=== PATIENT | female | born 1990 | race Caucasian/White ===

== ENCOUNTER 2017-09-08 14:30 | Emergency (ER) | payer SELFPAY ==
[2017-09-08 14:31] VITALS: BP 141/97; PULSE 77; RESP 18; TEMP 36.4; O2SAT 100; BMI 32.9
--- NOTE | 2017-09-08 15:19 | CT_ITS ---
CT Abdomen And Pelvis W/ Contrast INDICATION: RUQ PAIN X 1 WEEK. PRIOR CHOLECYSTECTOMY COMPARISON: None TECHNIQUE: Axial CT imaging of the abdomen and pelvis with IV contrast. Coronal and sagittal reformatted images. Radiation dose of the midfacial technique applied. 100 mL of Isovue-300 were given intravenously. FINDINGS: Subsegmental atelectasis are seen in the lingula. Visualized lung bases are otherwise clear. The heart size is normal. The liver, spleen, adrenal glands, and pancreas are unremarkable. The gallbladder is surgically absent. The kidneys enhance contrast symmetrically bilaterally and are without evidence of hydronephrosis. The bowel loops are nondistended. The appendix is unremarkable. The urinary bladder is physiologically distended. There is no evidence of free air or free fluid. Osseous structures are unremarkable. CT/Abdomen/Pelvis WITH Contrast IMPRESSION: No CT evidence of acute intra-abdominal or pelvic pathology. Status post cholecystectomy. Normal appendix. at 1711 Reported and signed by: Crystal Calles MD Electronically Signed: Crystal Calles MD at 16:10 EST Tel , Service support ,
--- NOTE | 2017-09-08 15:23 | ED.DCSUM_ITS ---
- ER Visit Summary Date of Service: 09/08/17 Chief Complaint:Abdominal pain History of Present Illness: The patient is a 27 F presenting with right upper quadrant abdominal pain ?1 week. She has had nausea. She states initially she had vomiting but this has resolved. She has diarrhea with no blood in her stool. She denies fever. She denies urinary complaints. She states this is worse with eating and also occasionally just has sharp pains in this area. She has a history of previous cholecystectomy. Denies possibility of . Physical Examination: Vitals are stable. Patient is afebrile. Alert no acute distress. HEENT exam is unremarkable. Neck is supple. Lungs are clear and equal bilaterally. Heart is regular rate and rhythm. Abdomen is soft right upper and lower quadrant tenderness, no rebound or guarding Extremities are unremarkable. Skin is warm and dry. Remainder of exam is unremarkable. Emergency Department Course and Treatment: Patient is given IV fluids, morphine , Zofran. CBC is white count 11.1. Chemistries normal except for glucose 67. Liver lipase are normal. Urinalysis unremarkable. HCG negative. CT abdomen pelvis with IV and oral contrast was obtained shows normal appendix, no acute process. Patient is resting comfortably in the emergency department. She is given a GI cocktail. She is advised to follow-up with primary care physician. Advised return ED if worsening complaints Disposition: Discharge home Impression: Abdominal pain This note was generated with [employer] dictation software. It may contain incorrect words, spelling, and punctuation that were not noted in review of the chart prior to signing ED Disposition - Plan for ED Patient: Chief Complaint: Abd Pain Instructions: ED Abdominal Pain Unkn Cause Prescriptions: Ondansetron [Zofran Odt] 4 mg PO Q8H PRN PRN #10 tablet PRN Reason: Nausea Dicyclomine HCl [Bentyl] 20 mg PO TIDAC #20 capsule Referrals: Mark Ramos DO [Primary Care Provider] -
[2017-09-08] MEDS: 0.9% Normal Saline 1,000 ML 1000 ML IV (15:42)
[2017-09-08] MEDS: Ondansetron 4 MG/2 ML Vial IV (15:42)
[2017-09-08 16:06] LABS: Absolute Lymphocyte Count 3.29 X10^3/ul (0.83-4.51); Absolute Neutrophil Count 6.7 X10^3/uL (2.0-7.7); Basophil# 0.06 X10^3/uL; Basophil% 0.5 % (0-1); Eosinophils% 1.8 % (0-5); Hematocrit 42.1 % (37-47); Hemoglobin 14.3 g/dl (12.0-15.0); Lymphocyte # 3.29 X10^3/ul (4.0); Lymphocyte % 29.7 % (19-41); Mean Corpuscular Hgb 30.8 pg (27.0-32.0); Mean Corpuscular Volume 90.5 fL (81-99); Monocyte# 0.81 X10^3/uL; Monocyte% 7.3 % (0-10); Neutrophil # 6.69 X10^3/uL (2.7-7.7); Neutrophil % 60.5 % (47-70); Platelet Count 320 K/mm3 (150-450); RBC Distribution Width CV 13.3 % (11.6-14.6); Red Blood Count 4.65 M/mm3 (4.2-5.4); White Blood Count 11.1 K/mm3 (4.4-11.0)
[2017-09-08 16:07] LABS: POSITIVE COUNT NO; POSITIVE DIFFERENTIAL NO; POSITIVE MORPHOLOGY NO
[2017-09-08 16:25] LABS: AST(SGOT) 17 U/L (15-37); Alanine Aminotransfer ALT/SGPT 35 U/L (13-56); Albumin, Serum 3.8 g/dL (3.2-5.0); Alkaline Phosphatase 93 U/L (45-117); Anion Gap 8 (5-15); BUN 10 mg/dL (7-18); BUN/Creat Ratio 14.1 RATIO (10-20); Calcium,Total 8.7 mg/dL (8.5-10.1); Chloride 106 mmol/L (98-107); Creatinine, Serum 0.71 mg/dL (0.55-1.02); EST Glomerular Filtration Rate 104 mL/min (>60); Est Glom Filt Rate - Afr Amer 125 mL/min (>60); Estimated Creatinine Clearance 92.47 ml/min; Globulin 3.8 g/dL (2.2-4.2); Glucose 67 mg/dL (70-110); Lipase 161 U/L (73-393); Potassium 3.7 mmol/L (3.5-5.1); Protein, Total 7.6 g/dL (6.4-8.2); Sodium Level 141 mmol/L (136-145)
[2017-09-08 16:25] LABS: Bacteria 0 SEEN /hpf (None Seen); Mucous, Urine 0 SEEN /hpf (<or=2+); Red Blood Cells-Urine 0 SEEN /hpf (0-5); White Blood Cells 0 SEEN /hpf (0-5)
[2017-09-08 16:28] LABS: Pregnancy, Serum, hCG Quali. NEGATIVE Negative (0-9 Nonpreg)
[2017-09-08 16:29] LABS: Color, Urine Yellow (Yellow); Glucose, Dipstick Normal (Normal); Ketone-Dipstick Negative (Negative); Leukocyte Esterase-Dipstick 25 /ul (Negative); Nitrite-Dipstick Negative (Negative); Occult Blood-Urine Negative /ul (Negative); Protein-Dipstick Negative (Negative); Urine Bilirubin Dipstick Negative (Negative); Urine Clarity Clear (Clear); Urine Urobilinogen Normal (Normal)
[2017-09-08 16:35] LABS: Squamous Epithelial Cells - UA 0-5 SEEN /hpf (5-10)
[2017-09-08 17:42] VITALS: BP 128/74; PULSE 55; RESP 16; O2SAT 97
--- NOTE | 2017-09-08 18:12 | ED.DEP ---
ED Disposition - Plan for ED Patient: Chief Complaint: Abd Pain Instructions: ED Abdominal Pain Unkn Cause Prescriptions: Ondansetron [Zofran Odt] 4 mg PO Q8H PRN PRN #10 tablet PRN Reason: Nausea Dicyclomine HCl [Bentyl] 20 mg PO TIDAC #20 capsule Referrals: Mark Ramos DO [Primary Care Provider] -
[2017-09-08 18:41] VITALS: PULSE 48; RESP 16; O2SAT 99
== END 2017-09-08 18:41 | disposition home or self-care (01) ==
LOC: ED 16:05
PROVIDERS: Emergency Provider Emergency Medicine; Family Provider Student in an Organized Health Care Education/Training Program; PCP Student in an Organized Health Care Education/Training Program
DX: R10.11 Right upper quadrant pain (principal); R10.31 Right lower quadrant pain; Z72.0 Tobacco use
CPT/HCPCS: 74177; 80053; 81001; 83690; 84703; 85025; 96361; 96374; 96375; 99284; J7050; Q9967; A4216; J2405

== ENCOUNTER 2017-11-14 09:53 | Emergency (ER) | payer SELFPAY ==
[2017-11-14 09:54] VITALS: BP 112/79; PULSE 103; RESP 16; TEMP 36.4; O2SAT 100; BMI 35.4
--- NOTE | 2017-11-14 10:26 | RAD_ITS ---
STUDY: X-RAY CHEST REASON FOR EXAM: Female, 27 years old. Shortness of breath. Back pain following a recent fall. TECHNIQUE: PA and lateral views of the chest. COMPARISON: Comparison is made with prior study dated October 19, 2012. FINDINGS: Increased markings at the lung bases suggestive of bibasilar atelectasis. There is no demonstrated pleural abnormality. Normal size heart. Normal mediastinum and ruchi. Normal visualized pulmonary arteries. Normal visualized aortic arch and descending thoracic aorta. Normal visualized thoracic spine. Normal visualized ribs, clavicles, and shoulders. There is no demonstrated abnormality of the visualized soft tissue structures of the upper abdomen. RAD/Chest PA and Lateral IMPRESSION: Findings in keeping with bibasilar atelectasis. Electronically Signed: Félix Evans MD at 11:36 EDT Tel [phone], Service support ,
--- NOTE | 2017-11-14 10:53 | ED.VISSUMM ---
- ER Visit Summary Date of Service: 11/14/17 Chief Complaint: Back pain and sore throat History of Present Illness: The patient is a 27 F who states that 2 weeks ago she slipped on some creamer at work and fell flat on her back. She states that her mom is had surgery and she is having to help move her quite a bit. She states she has not had a time for her back to heal and notes that is still painful. She states it is diffusely painful but worse in between the shoulder blades. She also states that she is having an acute allergic reaction because her sore throat is sore. She states it began last night but when asking when her cough began she states that that began 2 days ago in conjunction with her sore throat. Upon deeper questioning the sore throat is been present for 2 days associated with cough and slight rhinorrhea. There has been no reported fevers. Denies any neurologic symptoms. Home treatment has included nothing. Physical Examination: Afebrile vital signs are stable Gen: Well-nourished well-developed obese Head: Normocephalic atraumatic Eyes: Perrl EOMI ENT: TMs clear bilateral turbinate edema with clear rhinorrhea moist mucous membranes pharyngeal erythema with no obvious peritonsillar or retropharyngeal abscess Neck: Supple no lymphadenopathy no JVD reports pain upon palpation to touching the superficial skin of the neck. CVS: Regular rate rhythm no murmurs normal S1-S2 Respiratory: No distress clear to auscultation bilaterally chest nontender Abdomen: Soft nontender nondistended normal bowel sounds no masses Back: Patient reports diffuse tenderness to palpation of the back out of proportion to the examination. I simply touched her gown in the patient winced and said I hurt her. Extremity: Nontender no edema Skin: Normal color no rash Neuro: alert orientated ?3 CN II-XII intact normal strength sensation reflexes gait cerebellar Psych: Normal affect normal mood Test Results: Chest x-ray reveals no pulmonary pathology but also no obvious thoracic spine injury. Emergency Department Course and Treatment: Patient will be discharged home with ibuprofen. She is to follow-up with her doctor. Impression: 1. Back muscle strain from fall 2. Upper respiratory infection/pharyngitis This note was generated with [employer] dictation software. It may contain incorrect words, spelling, and punctuation that were not noted in review of the chart prior to signing ED Disposition - Plan for ED Patient: Disposition: Home or Assisted Living Chief Complaint: Back Instructions: ED Pharyngitis Viral, ED Sprain Thoracic Spine Prescriptions: Ibuprofen [Motrin] 800 mg PO TID PRN PRN #20 tab PRN Reason: Pain Referrals: Mark Ramos DO [Primary Care Provider] - 10-14 Days if not better
[2017-11-14 11:08] VITALS: BP 133/82; PULSE 73; RESP 16; O2SAT 99
== END 2017-11-14 11:13 | disposition home or self-care (01) ==
LOC: ED 11:12
PROVIDERS: Emergency Provider Emergency Medicine; Family Provider Student in an Organized Health Care Education/Training Program; PCP Student in an Organized Health Care Education/Training Program
DX: S29.012A Strain of muscle and tendon of back wall of thorax, initial encounter (principal); J02.9 Acute pharyngitis, unspecified; J06.9 Acute upper respiratory infection, unspecified; Z72.0 Tobacco use; X50.0XXA Overexertion from strenuous movement or load, initial encounter; Y93.F2 Activity, caregiving, lifting; Y92.009 Unspecified place in unspecified non-institutional (private) residence as the place of occurrence of the external cause; Y99.8 Other external cause status
CPT/HCPCS: 71046; 99282

== ENCOUNTER 2018-04-11 15:00 | Emergency (ER) | payer SELFPAY ==
[2018-04-11 15:01] VITALS: BP 123/87; PULSE 54; RESP 19; TEMP 36.9; O2SAT 99; BMI 32.9
[2018-04-11] MEDS: Ketorolac 60 MG/2 ML Vial IM (15:34)
[2018-04-11] MEDS: Orphenadrine 60 MG/2 ML Ampul IM (15:34)
--- NOTE | 2018-04-11 16:17 | ED.DEP ---
ED Disposition - Plan for ED Patient: Chief Complaint: Back Instructions: ED Neck Back Pain General Prescriptions: Naproxen [Naprosyn] 500 mg PO BID PRN #20 tablet Cyclobenzaprine [Flexeril] 10 mg PO TID PRN #20 tablet PRN Reason: Muscle Spasm Referrals: Mark Ramos DO [Primary Care Provider] -
--- NOTE | 2018-04-11 16:20 | ED.DCSUM_ITS ---
- ER Visit Summary Date of Service: 04/11/18 Chief Complaint: Back pain History of Present Illness: The patient is a 27 F presenting with back pain. States this has been ongoing for the past 6 months. She states she fell 6 months ago. She states since that time she has had intermittent back pain. She denies radiation. Pain is in her mid back. Denies bowel or bladder incontinence. Denies numbness or weakness. She is able to ambulate with pain. Denies fever. Physical Examination: Vitals are stable. Patient is afebrile. Alert no acute distress. HEENT exam is unremarkable. Neck is supple. Lungs are clear and equal bilaterally. Heart is regular rate and rhythm. Abdomen is soft nontender nondistended. Back: Bilateral paraspinal thoracic muscle tenderness, no midline tenderness Extremities are unremarkable. Skin is warm and dry. No focal neurologic deficit. Normal strength and sensation Remainder of exam is unremarkable. Emergency Department Course and Treatment: She is given Toradol, Norflex IM. She is given prescriptions for Naprosyn and Flexeril. She is advised to follow- up with her primary care physician Dr. Ramos. She is advised to return to the ED for worsening complaints. Disposition: Discharge home Impression: Acute on chronic back pain This note was generated with [employer] dictation software. It may contain incorrect words, spelling, and punctuation that were not noted in review of the chart prior to signing ED Disposition - Plan for ED Patient: Chief Complaint: Back Instructions: ED Neck Back Pain General Prescriptions: Naproxen [Naprosyn] 500 mg PO BID PRN #20 tablet Cyclobenzaprine [Flexeril] 10 mg PO TID PRN #20 tablet PRN Reason: Muscle Spasm Referrals: Mark Ramos DO [Primary Care Provider] -
[2018-04-11 16:29] VITALS: RESP 14
== END 2018-04-11 16:30 | disposition home or self-care (01) ==
PROVIDERS: Emergency Provider Emergency Medicine; Family Provider Student in an Organized Health Care Education/Training Program; PCP Student in an Organized Health Care Education/Training Program
DX: M54.6 Pain in thoracic spine (principal); G89.29 Other chronic pain; Z72.0 Tobacco use
CPT/HCPCS: 96372; 99284

== ENCOUNTER 2019-01-03 18:38 | Emergency (ER) | payer MEDICAID, SELFPAY ==
[2019-01-03 18:39] VITALS: BP 122/80; PULSE 94; RESP 18; TEMP 36.4; O2SAT 98; BMI 29.2
--- NOTE | 2019-01-03 19:29 | CT_ITS ---
STUDY: CT ABDOMEN AND PELVIS WITH CONTRAST REASON FOR EXAM: Female, 28 years old. Abdominal pain. RADIATION DOSAGE (If Supplied By Facility): CTDIvol = ( 15.67 ) mGy, DLP = ( 701.70 ) mGycm TECHNIQUE: Transaxial images were obtained from the dome of the diaphragm to the symphysis pubis without oral contrast. 100 IV/Oral Isovue 300 was administered. Sagittal and coronal images were reconstructed. Individualized dose optimization techniques were used for this CT. COMPARISON: September 08, 2017 FINDINGS: There is a stable 3.6 mm nodule within the right lower lobe. There are stable less than 4 mm nodules noted within the left lower lobe as well. The visualized portions of the heart are within normal limits. There is periportal edema which may be secondary to recent intravenous rehydration. There is non-visualization of the gallbladder, which may be secondary to either contraction or a prior cholecystectomy. Normal spleen. Normal pancreas. Normal bilateral adrenal glands. Normal right kidney. Normal left kidney. Normal visualized stomach. Normal small intestine. Normal colon. The appendix is visualized and appears normal. Normal abdominal aorta. Normal inferior vena cava. Normal retroperitoneum. Normal urinary bladder. Arising from the uterine fundus left of midline there is a grossly stable high attenuation 2.0 x 1.9 cm rounded soft tissue focus consistent with a fibroid. There is an additional stable similar appearing focus arising from the uterine fundus midline measuring 1.9 x 1.7 cm. There is free fluid within the pelvis that may be physiologic. There is a small umbilical hernia containing fat. Normal osseous structures. CT/Abdomen/Pelvis WITH Contrast IMPRESSION: No acute intracranial process. Uterine fibroids. Electronically Signed: Daysi Teresa MD at 22:30 EDT Tel , Service support ,
--- NOTE | 2019-01-03 19:30 | ED.VISSUMM ---
- ER Visit Summary Date of Service: 01/03/19 Chief Complaint: Abdominal pain History of Present Illness: The patient is a 28 F who presents for 2 days of epigastric abdominal pain. Patient states she noted a bulge in the epigastric region 2 weeks ago. 2 days ago she began developing pain in that region that is now worsening and radiating into the right upper quadrant. Pain is worse with bending and movement. She is tried [id number] medications without any help. No vomiting or diarrhea but patient does have nausea. She denies fever, chest pain, shortness of breath. No back pain or urinary symptoms. Patient has history of cholecystectomy. Physical Examination: Vital signs: afebrile, hemodynamically stable, no hypoxia on room air General: well nourished, well developed, in no distress Skin: warm, dry, no rash, no pallor HEENT: normocephalic and atraumatic; PERRL, EOMI, moist mucous membranes Cardiovascular: regular rate and rhythm without murmurs, no peripheral edema, 2+ pulses all distal extremities Respiratory: No increased work of breathing, lungs are clear to auscultation bilaterally, no rales, rhonchi or wheezing Abdominal: Abdomen is soft, diffusely tender with normoactive bowel sounds, no guarding or rebound, no masses, no hernias appreciated, no palpable masses MSK: Moves all extremities, no deformities, normal strength Neuro: Awake and alert, oriented ?4. No facial droop, sensation and motor function intact and symmetric Test Results: Abnormal Lab Results 01/03/19 01/03/19 01/03/19 19:12 19:12 19:12 WBC 8.9 RBC 4.43 Hgb 13.3 Hct 38.6 MCV 87.1 MCH 30.0 MCHC 34.5 RDW 12.9 RDW Differential 41.5 Plt Count 333 MPV 9.7 Immature Gran % (Auto) 0.200 Neut % (Auto) 52.3 Lymph % (Auto) 35.8 [place] % (Auto) 8.3 Eos % (Auto) 2.8 Baso % (Auto) 0.6 Absolute Neuts (auto) 4.7 Absolute Lymphs (auto) 3.20 Total Counted Not Reportable Sodium 140 Potassium 3.2 L Chloride 110 H Carbon Dioxide 23.0 Anion Gap 7 BUN 14 Creatinine 0.92 Estim Creat Clear Calc 70.72 Est GFR (MDRD) Af Amer 92 Est GFR (MDRD) Non-Af 76 BUN/Creatinine Ratio 15.2 Glucose 102 Lactic Acid Calcium 8.6 Total Bilirubin 0.30 AST 20 ALT 27 Alkaline Phosphatase 72 Total Protein 7.4 Albumin 3.9 Globulin 3.5 Albumin/Globulin Ratio 1.1 Lipase 127 Urine Color Urine Clarity Urine pH Ur Specific [place] Urine Protein Urine Glucose (UA) Urine Ketones Urine Occult Blood Urine Nitrite Urine Bilirubin Urine Urobilinogen Ur Leukocyte Esterase Urine RBC Urine WBC Ur Squamous Epith Cells Urine Bacteria Urine Mucus Urine Test 01/03/19 01/03/19 01/03/19 19:44 19:45 19:45 WBC RBC Hgb Hct MCV MCH MCHC RDW RDW Differential Plt Count MPV Immature Gran % (Auto) Neut % (Auto) Lymph % (Auto) [place] % (Auto) Eos % (Auto) Baso % (Auto) Absolute Neuts (auto) Absolute Lymphs (auto) Total Counted Sodium Potassium Chloride Carbon Dioxide Anion Gap BUN Creatinine Estim Creat Clear Calc Est GFR (MDRD) Af Amer Est GFR (MDRD) Non-Af BUN/Creatinine Ratio Glucose Lactic Acid 0.9 Calcium Total Bilirubin AST ALT Alkaline Phosphatase Total Protein Albumin Globulin Albumin/Globulin Ratio Lipase Urine Color Yellow Urine Clarity Sl. Cloudy Urine pH 7.0 Ur Specific [place] 1.010 Urine Protein 15 H Urine Glucose (UA) Normal Urine Ketones 15 H Urine Occult Blood Negative Urine Nitrite Negative Urine Bilirubin Negative Urine Urobilinogen 1 H Ur Leukocyte Esterase 100 H Urine RBC 0 SEEN Urine WBC 0-5 SEEN Ur Squamous Epith Cells 0-5 SEEN Urine Bacteria 0 SEEN Urine Mucus RARE Urine Test Negative Clinical Impression(s) from Imaging Studies Abdomen/Pelvis CT 01/03/19 19:29 IMPRESSION: No acute intracranial process. Uterine fibroids. Electronically Signed: Daysi Teresa MD at 22:30 EDT Tel , Service support , Medications Given Discontinued Medications Dicyclomine HCl (Bentyl) 20 mg PO X1 ONE Stop: 01/03/19 21:08 Last Admin: 01/03/19 21:11 Dose: 20 mg Sodium Chloride () 1,000 mls @ 1,000 mls/hr IV .Q1H ONE Stop: 01/03/19 20:27 Last Admin: 01/03/19 19:45 Dose: 1,000 mls/hr Ketorolac Tromethamine (Toradol) 15 mg IV X1 ONE Stop: 01/03/19 20:26 Last Admin: 01/03/19 20:29 Dose: 15 mg Morphine Sulfate () 4 mg IV X1 ONE Stop: 01/03/19 19:29 Last Admin: 01/03/19 19:46 Dose: 4 mg Ondansetron HCl (Zofran) 4 mg IV X1 ONE Stop: 01/03/19 19:29 Last Admin: 01/03/19 19:45 Dose: 4 mg Emergency Department Course and Treatment: Upon examination, the bulge that the patient is indicating is causing her discomfort is the lower extremity, specifically the xiphoid process. There is no crepitation or contusion noted at that location. There was no abdominal masses noted, however patient was diffusely tender in the abdomen and appears uncomfortable. He was given IV fluids, morphine and Zofran for symptomatic relief. Labs were performed showing no leukocytosis. No significant electrolyte derangements although potassium was mildly low at 3.2. Hepatic function was normal and lipase was normal. Urine showed no signs of infection. Lactate was within normal limits 0.9. negative. CT the abdomen and pelvis showed no acute process to explain patient's symptoms. Patient had required additional morphine and was given a dose of Bentyl for continued pain. On reevaluation patient was laying comfortably in bed and continued to palpate her epigastric region stating that she still felt a bulge and still had discomfort. I discussed with her that the bulge she is feeling, which she showed me with her finger, is her xiphoid process, which is part of her breastbone. Patient states it is never been there before, and I explained to her that she may never noticed it before because she did not have pain in that area and had no need to be poking there. Patient was reassured that it was normal. She was given a prescription for Bentyl, Zofran and Pepcid for medical management at home. Because she is having epigastric discomfort, she may be having GERD or acute gastritis. She has an appointment already with her primary care doctor in 1 week and she will keep that appointment. Patient was discharged home well-appearing and in no distress. Treatment Plan: [] Disposition: [] Impression: Acute gastritis This note was generated with [employer] dictation software. It may contain incorrect words, spelling, and punctuation that were not noted in review of the chart prior to signing ED Disposition - Plan for ED Patient: Disposition: Home or Assisted Living Instructions: ED Abdominal Pain Unkn Cause Prescriptions: Ondansetron [Zofran Odt] 4 mg PO Q8H PRN PRN #10 tab PRN Reason: Nausea Dicyclomine HCl [Bentyl] 20 mg PO TIDAC #40 cap Famotidine [Pepcid] 20 mg PO BID #28 tab Referrals: Logan North III, MD [Primary Care Provider] - Keep Tanika appointment Additional Instructions: Take the Bentyl 4 times daily as prescribed to help with crampy abdominal pain. Use the Zofran as needed for nausea. You may use [id number] pain medication as well for pain. Take the pepcid to help with stomach acid. Keep your appointment with Dr. North scheduled. If you have any worsening of your condition or any new concerning symptoms, please return immediately to the emergency department for another evaluation.
[2019-01-03 19:40] LABS: Absolute Neutrophil Count 4.7 X10^3/uL (2.0-7.7); Basophil# 0.05 X10^3/uL; Basophil% 0.6 % (0-1); Eosinophil# 0.25 X10^3/uL; Eosinophils% 2.8 % (0-5); Hematocrit 38.6 % (37-47); Hemoglobin 13.3 g/dl (12.0-15.0); Lymphocyte % 35.8 % (19-41); Mean Corp Hgb Conc 34.5 g/gl (32-36); Mean Corpuscular Volume 87.1 fL (81-99); Mean Platelet Vol. 9.7 fl (6.2-12.0); Monocyte# 0.74 X10^3/uL; Monocyte% 8.3 % (0-10); Neutrophil # 4.68 X10^3/uL (2.7-7.7); Neutrophil % 52.3 % (47-70); POSITIVE COUNT NO; POSITIVE DIFFERENTIAL NO; POSITIVE MORPHOLOGY NO; Platelet Count 333 K/mm3 (150-450); RBC Distribution Width CV 12.9 % (11.6-14.6); RBC Distribution Width SD 41.5 fl (35.1-43.9); Red Blood Count 4.43 M/mm3 (4.2-5.4); White Blood Count 8.9 K/mm3 (4.4-11.0)
[2019-01-03] MEDS: 0.9% Normal Saline 1,000 ML 1000 ML IV (19:45)
[2019-01-03] MEDS: Ondansetron 4 MG/2 ML Vial IV (19:45)
[2019-01-03] MEDS: Morphine 4 MG/ML Syringe IV (19:46)
[2019-01-03 19:53] LABS: ALB/GLOB Ratio 1.1 RATIO (0.9-2.4); AST(SGOT) 20 U/L (15-37); Alanine Aminotransfer ALT/SGPT 27 U/L (13-56); Albumin, Serum 3.9 g/dL (3.2-5.0); Alkaline Phosphatase 72 U/L (45-117); Anion Gap 7 (5-15); BUN 14 mg/dL (7-18); BUN/Creat Ratio 15.2 RATIO (10-20); Calcium,Total 8.6 mg/dL (8.5-10.1); Chloride 110 mmol/L (98-107); Creatinine, Serum 0.92 mg/dL (0.55-1.02); EST Glomerular Filtration Rate 76 mL/min (>60); Est Glom Filt Rate - Afr Amer 92 mL/min (>60); Estimated Creatinine Clearance 70.72 ml/min; Globulin 3.5 g/dL (2.2-4.2); Glucose 102 mg/dL (74-106); Potassium 3.2 mmol/L (3.5-5.1); Protein, Total 7.4 g/dL (6.4-8.2); Sodium Level 140 mmol/L (136-145)
[2019-01-03 19:55] LABS: Bacteria 0 SEEN /hpf (None Seen); Red Blood Cells-Urine 0 SEEN /hpf (0-5)
[2019-01-03 19:58] LABS: Color, Urine Yellow (Yellow); Glucose, Dipstick Normal (Normal); Ketone-Dipstick 15 mg/dl (Negative); Leukocyte Esterase-Dipstick 100 /ul (Negative); Nitrite-Dipstick Negative (Negative); Occult Blood-Urine Negative /ul (Negative); Protein-Dipstick 15 mg/dl (Negative); Urine Bilirubin Dipstick Negative (Negative); Urine Clarity Sl. Cloudy (Clear); Urine Urobilinogen 1 mg/dl (Normal)
[2019-01-03 20:00] LABS: Internal QC Validated? YES +Cl - CLEAR BKGD; Pregnancy, Urine Negative Negative
[2019-01-03 20:05] LABS: White Blood Cells 0-5 SEEN /hpf (0-5)
[2019-01-03 20:06] LABS: Mucous, Urine RARE /hpf (<or=2+); Squamous Epithelial Cells - UA 0-5 SEEN /hpf (5-10)
[2019-01-03 20:28] LABS: Lactic Acid 0.9 mmol/L (0.4-2.0)
[2019-01-03] MEDS: Ketorolac 15 MG/ML Vial IV (20:29)
[2019-01-03] MEDS: Dicyclomine 10 MG Capsule 20 MG PO (21:11)
[2019-01-03 21:12] VITALS: BP 125/78; PULSE 67; RESP 18; O2SAT 100
[2019-01-03 22:27] LABS: Lipase 127 U/L (73-393)
--- NOTE | 2019-01-03 23:01 | ED.VISSUMM ---
ED Disposition - Plan for ED Patient: Disposition: Home or Assisted Living Instructions: ED Abdominal Pain Unkn Cause Prescriptions: Ondansetron [Zofran Odt] 4 mg PO Q8H PRN PRN #10 tab PRN Reason: Nausea RX: Dicyclomine HCl [Bentyl] 20 mg PO TIDAC #40 cap Famotidine [Pepcid] 20 mg PO BID #28 tab Referrals: Logan North III, MD [Primary Care Provider] - Keep Tanika appointment Additional Instructions: Take the Bentyl 4 times daily as prescribed to help with crampy abdominal pain. Use the Zofran as needed for nausea. You may use [id number] pain medication as well for pain. Take the pepcid to help with stomach acid. Keep your appointment with Dr. North scheduled. If you have any worsening of your condition or any new concerning symptoms, please return immediately to the emergency department for another evaluation.
[2019-01-03 23:10] VITALS: BP 121/72; PULSE 51; RESP 16
--- NOTE | 2019-01-03 23:18 | ED.RN ---
UPON CLEANING ROOM, FOUND PATIENTS D/C INSTRUCTIONS AND ALL RX IN TRASH. REMOVED AND PLACED IN CONFIDENTIALITY SHRED BIN FOR PATIENT PRIVACY PROTECTION.
== END 2019-01-03 23:11 | disposition home or self-care (01) ==
PROVIDERS: Emergency Provider Emergency Medicine; Family Provider Family Medicine; PCP Family Medicine
DX: K29.00 Acute gastritis without bleeding (principal)
CPT/HCPCS: 74177; 80053; 81001; 81025; 83605; 83690; 85025; 96361; 96374; 96375; 99285; J7030; Q9967; A4216; J2405

== ENCOUNTER 2019-09-09 19:03 | Emergency (ER) | payer MEDICAID, SELFPAY ==
[2019-09-09 19:04] VITALS: BP 144/85; PULSE 59; RESP 18; TEMP 36.7; O2SAT 98; BMI 33.3
--- NOTE | 2019-09-09 20:10 | ED.VIS.GEN ---
History of Present Illness Chief Complaint: Eye Problem Informant: Patient Onset: Yesterday Past Medical History - Allergies and Home Meds Allergies/Adverse Reactions: Allergies No Known Allergies Allergy (Verified 09/09/19 19:06) Primary Care Physician: Logan North III, MD [Primary Care Provider] - Surgical History: tonsillectomy Smoking Status: Former smoker Review of Systems General: Denies: Chills, Fever, Sweats Eyes: Reports: Visual changes - right, Blurred vision - right, - - photophobia. Denies: Visual changes - bilaterally, Diplopia ENT: Denies: Rhinorrhea, Sore throat Cardiovascular: Denies: Chest pain, Palpitations Respiratory: Denies: Dyspnea, Cough, Dyspnea on exertion Gastrointestinal: Denies: Abdominal pain, Nausea, Vomiting, Diarrhea, Melena, Hematochezia Genitourinary: Denies: Dysuria, Hematuria, Frequency Musculoskeletal: Denies: Back pain, Extremity Pain Skin: Denies: Rash, Wounds Neurological: Denies: Headache, Weakness, Numbness Physical Exam Vital Signs/Narrative: Vital Signs Temp Pulse Resp BP Pulse Ox 09/09/19 19:04 98.0 F 59 L 18 144/85 H 98 Inital Vital Signs reviewed: Yes General: Well nourished, Well developed, No Acute Distress Head: Normocephalic, Atraumatic Eyes: Perrl, EOMI ENT: Moist mucous membranes, No rhinorrhea Neck: Supple, Nontender Cardiovascular: Regular rate, Regular rhythm, No murmurs Respiratory: No distress, CTA bilaterally, Chest nontender Abdomen: Soft, Nontender, Nondistended, Normal bowel sounds Back: Nontender, Normal Inspection Extremities: Nontender, No edema Skin: Normal color, No rash Neurological: Alert, Oriented x3, Cranial nerves II-XII grossly intact, Normal Strength, Normal Sensation Psychological: Normal affect, Normal Mood ED Disposition - Plan for ED Patient: Referrals: Logan North III, MD [Primary Care Provider] -
--- NOTE | 2019-09-09 20:12 | ED.VIS.EYE ---
History of Present Illness Chief Complaint: Eye Problem Informant: Patient Location: Right Eye Onset: Yesterday Narrative: Patient states that yesterday afternoon she was crying and she had contacts in. She states that she was rubbing her eyes quite a bit and eventually her right eye started hurting. Today she is wearing her glasses. Notes light sensitivity. She went to urgent care where she was told she had a scratch on her cornea. She tells me that they told her to come to the emergency department for further evaluation. Patient sees Nicolas for her optical care. Past Medical History - Allergies and Home Meds Allergies/Adverse Reactions: Allergies No Known Allergies Allergy (Verified 09/09/19 19:06) Primary Care Physician: Logan North III, MD [Primary Care Provider] - Surgical History: tonsillectomy Smoking Status: Former smoker Review of Systems General: Denies: Chills, Fever, Sweats Eyes: Reports: Visual changes - right, Blurred vision - right, - - photophobia. Denies: Visual changes - bilaterally, Diplopia ENT: Denies: Rhinorrhea, Sore throat Cardiovascular: Denies: Chest pain, Palpitations Respiratory: Denies: Dyspnea, Cough, Dyspnea on exertion Gastrointestinal: Denies: Abdominal pain, Nausea, Vomiting, Diarrhea, Melena, Hematochezia Genitourinary: Denies: Dysuria, Hematuria, Frequency Musculoskeletal: Denies: Back pain, Extremity Pain Skin: Denies: Rash, Wounds Neurological: Denies: Headache, Weakness, Numbness Physical Exam Eyelid: Normal inspection, Right eyelid everted, Left eyelid everted Right Conjunctiva/Sclera: Diffuse focal injection Left Conjunctiva/Sclera: Normal inspection Right Cornea: Tetracaine instilled, Fluorescein dye uptake Left Cornea: Normal inspection Extraocular Motion: Normal exam Pupils: Normal accomodation, PERRL Anterior chamber: Normal exam, Deep and quiet, Right iritis Right intraocular pressure: 19/15/20 Left intraocular pressure: 18/17/18 Vital Signs/Narrative: Vital Signs Temp Pulse Resp BP Pulse Ox 09/09/19 19:04 98.0 F 59 L 18 144/85 H 98 General: Well nourished, Well developed Head: Normocephalic, Atraumatic ENT: Moist mucous membranes, No rhinorrhea Neck: Supple, Nontender Cardiovascular: Regular rate, Regular rhythm, No murmurs Respiratory: No distress, CTA bilaterally, Chest nontender Abdomen: Soft, Nontender, Nondistended, Normal bowel sounds Back: Nontender, Normal Inspection Extremities: Nontender, No edema Skin: Normal color, No rash Neurological: Alert, Oriented x3, Cranial nerves II-XII grossly intact, Normal Strength, Normal Sensation Psychological: Normal affect Diagnostic/Tx/Re-eval - Medical Decision Making Appears to be some focal dye uptake near the 4 o'clock position of the cornea. The eye is diffusely injected and tearing. Ocular pressures appear normal. Anterior chamber is deep and quiet. She has mild photophobia. Patient will be discharged home with ophthalmologic anti-biotic ointment. She will need to follow-up with ophthalmology. Dr. Christopher is on-call tonight. Disposition: Home ED Disposition - Plan for ED Patient: Disposition: Home or Assisted Living Diagnosis: Corneal abrasion Instructions: ED Corneal Abrasion Prescriptions: Erythromycin Ophthalmic 1 applic RIGHT EYE 5X/DAY 7 Days #1 tube Prescription Printed Referrals: Piotr Christopher MD [STAFF PHYSICIAN] - As soon as possible Additional Instructions: Do not wear your contacts until cleared by ophthalmology.
== END 2019-09-09 20:25 | disposition home or self-care (01) ==
PROVIDERS: Emergency Provider Emergency Medicine; PCP Family Medicine
DX: H18.821 Corneal disorder due to contact lens, right eye (principal); Z87.891 Personal history of nicotine dependence
CPT/HCPCS: 99282

== ENCOUNTER 2020-01-08 12:04 | Day surgery (SDC) | payer MEDICAID, SELFPAY ==
[2020-01-08] VITALS (8 sets, daily range): BP systolic 104–117; BP diastolic 59–78; PULSE 61–100; RESP 15–18; TEMP 36.5–37.1; O2SAT 91–98; BMI 35.7
--- NOTE | 2020-01-08 11:00 | POC_PTH ---
PATIENT: NATALIO MARCIAL LOC: [facility] – [place] U#:[id number] AGE/SX: 29/F ROOM: RE01/08/[address]: Dr. Myrna Oliver MD : 1990 BED: DIS: 01/08/2020 SPEC #: [id number] RECD: 01/08/20 14:24 STATUS: JESSE REHeidy #: [id number] EMMIE: 01/08/20 11:[address]: Myrna Oliver DEPT: SURGICAL PATHOLOGY RECD BY: Stephen Hawkins ENTERED: 01/11/20 09:24 SP TYPE: PROD CONC OTHR DR: Dr. Logan North III, MD Tissues: Product of conception, NOS Procedures: Surgery Specimen Level IV HEADER OPERATION: Suction dilation and curettage PRE-OP DIAGNOSIS: Missed TISSUE SUBMITTED: Products of conception MICROSCOPIC DIAGNOSIS Products of conception: [place]id[place], gestational endometrium and immature chorionic villi (products of conception). SJ:matty 01/12/20 MICROSCOPIC DESCRIPTION Slides are reviewed. GROSS DESCRIPTION Received in fixative is one container labeled with the patient's name and designated products of conception. The specimen consists of multiple irregular fragments of red-french soft tissue that in aggregate measure 6.5 x 5 x 0.8 cm. parts are not grossly recognized. Designer/Writer portions are submitted in three cassettes. / AM:matty 01/11/20 TC:5 CPT: 63527
[2020-01-08 12:11] LABS: Probe Check PASS; SARS-COV-2 DNA by PCR Negative (Negative); Specimen Processing Control PASS
[2020-01-08 12:37] LABS: Hematocrit 41.5 % (37-47); Hemoglobin 13.9 g/dL (12.0-15.0); Mean Corp Hgb Conc 33.5 g/dL (32-36); Mean Corpuscular Hgb 30.6 pg (27.0-32.0); Mean Corpuscular Volume 91.4 fL (81-99); Mean Platelet Vol. 9.6 fl (6.2-12.0); Platelet Count 339 K/mm3 (150-450); RBC Distribution Width CV 13.3 % (11.6-14.6); RBC Distribution Width SD 44.8 fl (35.1-43.9); Red Blood Count 4.54 M/mm3 (4.2-5.4); White Blood Count 11.5 K/mm3 (4.4-11.0)
[2020-01-08] MEDS: Doxycycline 100 MG CAPSULE 200 MG PO (12:39)
[2020-01-08] MEDS: Lactated Ringers 1,000 ML 100 ML IV (12:44)
--- NOTE | 2020-01-08 13:41 | PCM.HP.OB ---
History Date of Admission: 01/08/20 History of this : This is a 29 year-old female at 6 weeks gestational age with a missed AB. Allergies No Known Allergies Allergy (Verified 09/09/19 19:06) Home Medications: Home Medications Pregabalin 150 mg PO TID 09/09/19 Smoking Status: Former smoker Substance Use Type: Marijuana - history of use Number of Fetus(es): 1 History Past Pregnancies: Past Pregnancies Delivery Date Name GA/ Weeks Outcome Route Wt Infant Sex Labor Length Anesthesia Delivery Location Provider FOB Physical Exam Vitals: Vital Signs Temp Pulse Resp BP Pulse Ox 98.7 F 63 15 104/59 L 98 01/08/20 12:30 01/08/20 12:30 01/08/20 12:30 01/08/20 12:30 01/08/20 12:30 General: Alert - tearful over loss, Oriented x3 Abdomen: Soft, Non Tender, Non-Distended Extremities:: No edema Neurological: Cranial nerves II-XII grossly intact Assessment/Plan This is a 29 year-old female with missed AB at 6 weeks. Patient seen in office by on 01/06 and diagnosed with missed AB. Patient counseled on R/B/A and requested suction D&C as soon as possible. Preop doxycycline ordered. Routine care
--- NOTE | 2020-01-08 13:47 | DCINST_ITS ---
Discharge Diet: No Restrictions Discharge Activity: May Drive - after 24 hours May resume sexual activity in: 2 weeks Weight Bearing Status: Weight bearing as tolerated Call your doctor if you observe: Fever of 101 or Higher, Coldness, Increased Pain, Numbness or Tingling, Change in Color, Inability to urinate, Inability to have a bowel movement, Using more than one pad per hour, Shortness of breath, Fainting spells, Chest pain, Increased palpitations (irregular heartbeat), Uncontrolled pain Allergies/Adverse Reactions: Allergies No Known Allergies Allergy (Verified 09/09/19 19:06) Medications to take at Discharge Pregabalin 150 mg PO TID 09/09/19 Primary Care Physician: Logan North III, MD [Primary Care Provider] - Test Results: Test results from this visit will be discussed in further detail at your follow- up appointment, if applicable.
--- NOTE | 2020-01-08 14:21 | PCM.OPRPT ---
Report of Operation Date of Procedure: 01/08/20 Pre-Operative Diagnosis: Missed at 6 weeks Post-Operative Diagnosis: Same Surgery/Procedure Performed:: Suction dilation and curettage Description of Surgical Findings:: Uterus 6-7 week size. POC's c/w that GA. Type of Anesthesia:: MAC Specimen's removed: POC's Estimated Blood Loss (mL): 50ml Fluids Replaced: 700ml Description of Procedure: Patient prepped and draped in the dorsal lithotomy position. Cervix grasped with tenaculum and gently dilated. Number 7 suction curette introduced for return of POC's. Gentle sharp curettage performed with #2 curette. Repeat suction curettage performed. One additional gentle pass with the sharp curettage showed gritty texture to the endometrial cavity. At the end of the procedure all instruments were removed from the vaginal cavity. Patient tolerated the procedure well. - Complications None - Admit VTE Documentation VTE Present on Admission: No
[2020-01-08] MEDS: Acetaminophen 500 MG Tablet 1000 MG PO (15:57)
== END 2020-01-08 16:15 | disposition home or self-care (01) ==
LOC: SDC 12:06 → AC 12:07
PROVIDERS: PCP Family Medicine; Visit Provider Obstetrics & Gynecology
PROC: (CPT 59820; principal; 2020-01-08 10:45)
DX: O02.1 Missed abortion (principal); Z11.59 Encounter for screening for other viral diseases; Z87.891 Personal history of nicotine dependence; Z3A.01 Less than 8 weeks gestation of pregnancy
CPT/HCPCS: 59820; 85027; 86850; 86900; 86901; 87635; 88305; G2023; J7120; J2405; U0004

== ENCOUNTER → 2020-02-24 | Outpatient (CLI) | payer MEDICAID, SELFPAY ==
[2020-01-08 12:30] VITALS: BMI 35.7
[2020-02-24 15:35] LABS: hCG Titer Quant., Serum 10 mIU/mL (1-3)
== END | disposition home or self-care (01) ==
LOC: PAVLAB 14:45
PROVIDERS: PCP Family Medicine; Referring Provider Nurse Practitioner Women's Health; Visit Provider Nurse Practitioner Women's Health
DX: N91.2 Amenorrhea, unspecified (principal)
CPT/HCPCS: 36415; 84702

== ENCOUNTER → 2020-02-26 | Outpatient (CLI) | payer MEDICAID, SELFPAY ==
[2020-01-08 12:30] VITALS: BMI 35.7
[2020-02-26 15:27] LABS: hCG Titer Quant., Serum 10 mIU/mL (1-3)
== END | disposition home or self-care (01) ==
PROVIDERS: PCP Family Medicine; Referring Provider Nurse Practitioner Women's Health; Visit Provider Nurse Practitioner Women's Health
DX: N91.2 Amenorrhea, unspecified (principal)
CPT/HCPCS: 36415; 84702

== ENCOUNTER 2020-02-29 12:30 | Emergency (ER) | payer MEDICAID, SELFPAY ==
[2020-01-08 12:30] VITALS: BMI 35.7
[2020-02-29 12:31] VITALS: BP 124/61; PULSE 79; RESP 18; TEMP 36.7; O2SAT 95; BMI 38.2
--- NOTE | 2020-02-29 12:43 | ED.VISSUMM ---
- ER Visit Summary Date of Service: 02/29/20 Chief Complaint: Vaginal bleeding History of Present Illness: The patient is a [address] Logan North and Dr. Saturnino Adames. She reports that she had a D&C January [address] Oliver. She had not had a period since then and had a positive test last week. Patient reports that she has vaginal bleeding that began 3 days ago. It is heavier than her typical bleeding and she is having a change 1-2 pads per hour. Reports that she has a sharp diffuse abdominal pain is 9-10 at worst and 7-10 currently. She denies any vaginal discharge. No dysuria or frequency. Physical Examination: Vitals: Stable. Afebrile. General: Well-nourished and well-developed. Head: Normocephalic atraumatic. Neck: Supple, no lymphadenopathy. No JVD. Nontender. Cardiovascular: Regular rate and rhythm. No murmurs. Respiratory: No respiratory distress. Clear to auscultation bilaterally. Abdominal: Soft, mild diffuse tenderness to palpation, nondistended, normal bowel sounds. No guarding, rebound, or peritoneal signs. Back: Nontender. Extremities: Nontender, no edema. Skin: Normal color, no rash. Neurologic: Alert and oriented ?3. Cranial nerves II through XII are intact. Normal strength and sensation. Psych: Normal affect. Test Results: Chart review shows patient's blood type is B+. She had a quantitative hCG of 10 on February 23 and February 25. Quantitative hCG today is 4. UA shows 25-50 red blood cells and 1+ bacteria. No evidence of infection otherwise. Hemoglobin is 13.9. Clinical Impression(s) from Imaging Studies Transvaginal US 02/29/20 13:47 IMPRESSION: Multiple uterine fibroids, largest measures 3.4 cm. Simple right ovarian cyst, no specific follow-up needed No demonstrated free fluid Electronically Signed: Brown Garner MD at 14:49 EDT , Service support , Emergency Department Course and Treatment: Patient had an IV placed. She was given a liter normal saline. She is given Toradol and Zofran IV. She is resting comfortably. Treatment Plan: Patient was discussed with Dr. Saturnino Adames. She will be discharged instructions to follow-up in the next month for repeat evaluation. She will be discharged with naproxen. Return to the emergency department for any worsening symptoms. Disposition: To home in improved and stable condition. Impression: 1. Uterine fibroids. This note was generated with [employer] dictation software. It may contain incorrect words, spelling, and punctuation that were not noted in review of the chart prior to signing ED Disposition - Plan for ED Patient: Instructions: ED FIBROIDS Prescriptions: Naproxen [Naprosyn] 500 mg PO BID #14 tablet Referrals: Geeta Gracia MD [STAFF PHYSICIAN] - Additional Instructions: Follow-up with Dr. Saturnino Adames within a month for further evaluation.
[2020-02-29 13:08] LABS: Mucous, Urine 0 SEEN /hpf (<or=2+); White Blood Cells 0 SEEN /hpf (0-5)
[2020-02-29 13:10] LABS: Color, Urine Yellow (Yellow); Glucose, Dipstick Normal (Normal); Ketone-Dipstick Negative (Negative); Leukocyte Esterase-Dipstick Negative /ul (Negative); Nitrite-Dipstick Negative (Negative); Occult Blood-Urine 250 /ul (Negative); Protein-Dipstick 15 mg/dl (Negative); Urine Bilirubin Dipstick Negative (Negative); Urine Clarity Sl. Cloudy (Clear); Urine Urobilinogen Normal (Normal)
[2020-02-29] MEDS: 0.9% Normal Saline 1,000 ML 1000 ML IV (13:11)
[2020-02-29] MEDS: Ondansetron 4 MG/2 ML Vial IV (13:11)
[2020-02-29] MEDS: Ketorolac 15 MG/ML Vial IV (13:12)
[2020-02-29 13:17] LABS: Bacteria 1+ /hpf (None Seen); Red Blood Cells-Urine 25-50 SEEN /hpf (0-5); Squamous Epithelial Cells - UA 0-5 SEEN /hpf (5-10)
[2020-02-29 13:22] LABS: Absolute Lymphocyte Count 3.76 X10^3/uL (0.83-4.51); Absolute Neutrophil Count 5.8 X10^3/uL (2.0-7.7); Basophil# 0.06 X10^3/uL; Basophil% 0.6 % (0-1); Eosinophil# 0.19 X10^3/uL; Eosinophils% 1.8 % (0-5); Hematocrit 40.8 % (37-47); Hemoglobin 13.9 g/dL (12.0-15.0); Lymphocyte # 3.76 X10^3/ul (4.0); Lymphocyte % 35.3 % (19-41); Mean Corp Hgb Conc 34.1 g/dL (32-36); Mean Corpuscular Hgb 30.1 pg (27.0-32.0); Mean Corpuscular Volume 88.3 fL (81-99); Mean Platelet Vol. 9.7 fl (6.2-12.0); Monocyte# 0.77 X10^3/uL; Monocyte% 7.2 % (0-10); NRBC Flagged by Analyzer 0 % (0-5); Neutrophil # 5.84 X10^3/uL (2.7-7.7); Neutrophil % 54.7 % (47-70); Platelet Count 382 K/mm3 (150-450); RBC Distribution Width CV 13.1 % (11.6-14.6); RBC Distribution Width SD 42.2 fl (35.1-43.9); Red Blood Count 4.62 M/mm3 (4.2-5.4); White Blood Count 10.7 K/mm3 (4.4-11.0)
[2020-02-29 13:43] LABS: hCG Titer Quant., Serum 4 mIU/mL (1-3)
--- NOTE | 2020-02-29 13:47 | US_ITS ---
STUDY: ULTRASOUND TRANSVAGINAL CLINICAL: Female, 29 years old. VAGINAL BLEEDING, positive PREGANCY TEST LAST WEEK AT OB OFFICE, HCG OF 4 TODAY. HX OF RECENT SAB IN JANUARY. TECHNIQUE: Transvaginal COMPARISON: None. FINDINGS: Normal uterine size measuring 8.9 cm in maximal craniocaudal dimension. There are multiple fibroids, largest measures 3.3 x 3.4 x 3.1 cm Normal endometrial thickness measuring 6 mm. There are no endometrial masses, and there is no fluid in the endometrial cavity. Normal uterine cervix. Normal right ovary, measuring 3.5 x 2.7 x 1.9 cm. There are multiple follicles with a dominant 2.0 cm cyst. Normal left ovary, measuring 1.6 x 1.7 x 2.5 cm. There are multiple follicles without a dominant cyst. There is no free fluid in the pelvis. US/Transvaginal Non- IMPRESSION: Multiple uterine fibroids, largest measures 3.4 cm. Simple right ovarian cyst, no specific follow-up needed No demonstrated free fluid Electronically Signed: Brown Garner MD at 14:49 EDT , Service support ,
[2020-02-29 15:18] VITALS: BP 116/67; PULSE 56; RESP 16; O2SAT 100
== END 2020-02-29 15:30 | disposition home or self-care (01) ==
LOC: ED 13:22
PROVIDERS: Emergency Provider Emergency Medicine; PCP Family Medicine
DX: D25.9 Leiomyoma of uterus, unspecified (principal); N83.201 Unspecified ovarian cyst, right side
CPT/HCPCS: 76830; 81001; 84702; 85025; 96361; 96374; 96375; 99285; J7030; A4216; J2405

== ENCOUNTER → 2020-09-15 | Outpatient (CLI) | payer MEDICAID, SELFPAY ==
[2020-09-15 10:00] VITALS: BMI 38.8
[2020-09-15 16:42] LABS: Amphetamine Urine VISTA NEGATIVE (<1000 ng/mL); Barbiturate Urine VISTA NEGATIVE (< 200 ng/mL); Benzodiazepine Urine VISTA POSITIVE (< 200 ng/mL); Cocaine Urine VISTA NEGATIVE (< 300 ng/mL); Ecstacy Urine VISTA NEGATIVE (< 500 ng/mL); Methadone Urine VISTA NEGATIVE (< 300 ng/mL); PCP Urine VISTA NEGATIVE (< 25 ng/mL); THC Urine VISTA POSITIVE (< 50 ng/mL); Vista UDS pH Range 6
[2020-09-19 06:06] LABS: Chlamydia By Nucleic Acid AMP Negative (Negative)
[2020-09-19 11:14] LABS: Gonococcus By Nucleic Acid AMP Negative (Negative)
[2020-09-19 21:45] LABS: HPV APTIMA, High Risk Negative (Negative)
== END | disposition home or self-care (01) ==
LOC: LABSPEC 13:59
PROVIDERS: PCP Family Medicine; Referring Provider Obstetrics & Gynecology; Visit Provider Obstetrics & Gynecology
DX: O98.519 Other viral diseases complicating pregnancy, unspecified trimester (principal); R87.810 Cervical high risk human papillomavirus (HPV) DNA test positive; Z3A.00 Weeks of gestation of pregnancy not specified
CPT/HCPCS: 80307; 87086; 87088; 87491; 87591; 87624; 88175; G0145

== ENCOUNTER → 2020-09-21 14:39 | Outpatient (CLI) | payer MEDICAID, SELFPAY ==
[2020-09-15 10:00] VITALS: BMI 38.8
[2020-09-21 15:03] LABS: Absolute Lymphocyte Count 2.94 X10^3/uL (0.83-4.51); Absolute Neutrophil Count 7.8 X10^3/uL (2.0-7.7); Basophil# 0.05 X10^3/uL; Basophil% 0.4 % (0-1); Eosinophil# 0.18 X10^3/uL; Eosinophils% 1.5 % (0-5); Hematocrit 38.5 % (37-47); Hemoglobin 12.8 g/dL (12.0-15.0); Lymphocyte # 2.94 X10^3/ul (4.0); Lymphocyte % 24.9 % (19-41); Mean Corp Hgb Conc 33.2 g/dL (32-36); Mean Corpuscular Volume 87.1 fL (81-99); Mean Platelet Vol. 9.5 fl (6.2-12.0); Monocyte# 0.79 X10^3/uL; Monocyte% 6.7 % (0-10); NRBC Flagged by Analyzer 0 % (0-5); Neutrophil # 7.79 X10^3/uL (2.7-7.7); Neutrophil % 66.2 % (47-70); Platelet Count 364 K/mm3 (150-450); RBC Distribution Width CV 13.5 % (11.6-14.6); RBC Distribution Width SD 43.8 fl (35.1-43.9); Red Blood Count 4.42 M/mm3 (4.2-5.4); White Blood Count 11.8 K/mm3 (4.4-11.0)
[2020-09-21 15:40] LABS: Glucose Challenge Gest 1H 50g 174 mg/dL (70-140)
[2020-09-21 16:17] LABS: HIV - WCH Non-Reactive (Nonreactive); Hepatitis B Surface Antigen Non-Reactive (Nonreactive); Hepatitis C Antibody Non-Reactive (Nonreactive); Rubella IgG Reactive (Nonreactive)
[2020-09-22 01:42] LABS: Rapid Plasmin Reagin (RPR) NONREACTIVE (NONREACTIVE)
== END ==
PROVIDERS: PCP Family Medicine; Referring Provider Obstetrics & Gynecology; Visit Provider Obstetrics & Gynecology
DX: O99.210 Obesity complicating pregnancy, unspecified trimester (principal); Z3A.00 Weeks of gestation of pregnancy not specified
CPT/HCPCS: 36415; 82950; 85025; 86592; 86703; 86762; 86803; 86850; 86900; 86901; 87340

== ENCOUNTER → 2020-09-23 06:56 | Outpatient (CLI) | payer MEDICAID, SELFPAY ==
[2020-09-15 10:00] VITALS: BMI 38.8
[2020-09-23 08:01] LABS: Glucose GTT-Gestation. Fasting 86 mg/dL (<105)
[2020-09-23 08:10] LABS: NATERA MAILED SPECIMEN
[2020-09-23 09:20] LABS: Glucose GTT-Gestational 1 Hr 143 mg/dL (<190)
[2020-09-23 09:47] LABS: Glucose GTT-Gestational 2 Hr 116 mg/dL (<165)
[2020-09-23 10:56] LABS: Glucose GTT-Gestational 3 Hr 70 L (<145)
== END ==
PROVIDERS: PCP Family Medicine; Referring Provider Obstetrics & Gynecology; Visit Provider Obstetrics & Gynecology
DX: O99.810 Abnormal glucose complicating pregnancy (principal); Z31.430 Encounter of female for testing for genetic disease carrier status for procreative management; Z3A.00 Weeks of gestation of pregnancy not specified
CPT/HCPCS: 36415; 82951; 82952

== ENCOUNTER → 2020-10-27 09:50 | Outpatient (CLI) | payer MEDICAID, SELFPAY ==
--- NOTE | 2020-10-27 09:52 | US_ITS ---
STUDY: ULTRASOUND BREAST - LEFT REASON FOR EXAM: Female, 30 years old. Palpable lump left breast. TECHNIQUE: Axial and longitudinal images of the LEFT breast were performed with a high resolution ultrasound transducer. # OF IMAGES: 15 COMPARISON: None. FINDINGS: LEFT Breast: The palpable abnormality corresponds to a 3 mm x 3 mm x 2 mm hypoechoic lesion in the deep subcutaneous tissues at the 5 o''clock position of the breast. This most likely represents a sebaceous cyst. US/Breast Limited Unilateral IMPRESSION: The palpable abnormality corresponds to a 3 mm x 3 mm x 2 mm complex cystic nodule in the deep subcutaneous tissues. This most likely represents a sebaceous cyst. ASSESSMENT CATEGORY: BIRADS Category 2: Benign. A letter regarding these results will be sent to the patient by the facility within 30 days. Electronically Signed: Félix Evans MD at 10:47 EDT , Service support ,
== END ==
PROVIDERS: PCP Family Medicine; Referring Provider Nurse Practitioner Women's Health; Visit Provider Nurse Practitioner Women's Health
DX: N63.20 Unspecified lump in the left breast, unspecified quadrant (principal)
CPT/HCPCS: 76642

== ENCOUNTER 2021-01-12 05:00 | Outpatient (CLI) | payer MEDICAID, SELFPAY ==
[2021-01-03 09:49] VITALS: BMI 39.9
[2021-01-12] VITALS (45 sets, daily range): BP systolic 114–159; BP diastolic 68–85; PULSE 73–107; RESP 16–18; TEMP 35.9–36.9; O2SAT 80–98; BMI 41.7
[2021-01-12 05:50] LABS: Glucose, Dipstick Normal (Normal); Ketone-Dipstick Negative (Negative); Leukocyte Esterase-Dipstick 100 /ul (Negative); Nitrite-Dipstick Negative (Negative); Occult Blood-Urine 10 /ul (Negative); Protein-Dipstick Negative (Negative); Urine Bilirubin Dipstick Negative (Negative); Urine Urobilinogen Normal (Normal)
[2021-01-12 05:51] LABS: Color, Urine Yellow (Yellow); Urine Clarity Clear (Clear)
[2021-01-12] MEDS: Lactated Ringers 1,000 ML 999 ML IV ×2 (06:28→07:25)
[2021-01-12 06:36] LABS: Absolute Lymphocyte Count 2.12 X10^3/uL (0.83-4.51); Absolute Neutrophil Count 16.2 X10^3/uL (2.0-7.7); Basophil# 0.05 X10^3/uL; Basophil% 0.3 % (0-1); Eosinophil# 0.21 X10^3/uL; Eosinophils% 1.1 % (0-5); Hematocrit 35.6 % (37-47); Lymphocyte # 2.12 X10^3/ul (0.83-4.51); Lymphocyte % 10.7 % (19-41); Mean Corp Hgb Conc 33.7 g/dL (32-36); Mean Corpuscular Hgb 29.3 pg (27.0-32.0); Mean Platelet Vol. 9.3 fl (6.2-12.0); Monocyte# 1.01 X10^3/uL; Monocyte% 5.1 % (0-10); NRBC Flagged by Analyzer 0 % (0-5); Neutrophil # 16.24 X10^3/uL (2.7-7.7); Platelet Count 400 K/mm3 (150-450); RBC Distribution Width CV 13.2 % (11.6-14.6); RBC Distribution Width SD 41.3 fl (35.1-43.9); Red Blood Count 4.09 M/mm3 (4.2-5.4); White Blood Count 19.8 K/mm3 (4.4-11.0)
[2021-01-12] MEDS: Betamethasone/Betamethasone 30 MG/5 ML Vial 12 MG IM (06:50)
[2021-01-12] MEDS: Magnesium Sulfate 4gm/100mL 6 GM/150 ML IV.SOLN. IV ×2 (08:14→08:32)
--- NOTE | 2021-01-12 08:32 | OB.TRI.HP_ITS ---
HPI - General HPI Narrative NATALIO MARCIAL, is a 30 F at 07/09 who presents with abdominal pain. Patient does report that she fell yesterday evening, but denies abdominal trauma and reports that she fell directly onto her hands and knees. Denies vaginal bleeding. Reports that pain is intermittent but is very intense when it occurs. Pain occurring approximately every 5 minutes. Denies pain or burning with urination. Denies abnormal vaginal discharge. Maternal Data Information MULU Calculator Estimated Delivery Date Method Current WG Current Estimate 04/12/21 LMP (Certain) 27w 1d [facility] Medical History (Updated 01/12/21 @ 08:[address] Lacey Araujo MD) Anxiety Depression Fibromyalgia H/O miscarriage, currently Migraine Obesity (BMI 30-39.9) Polysubstance (excluding opioids) dependence Thyroid nodule Uterine fibroid Home Medications multivitamin no.47-iron fum 27 mg-folate no.1 1 mg-dha 300 mg capsule 1 cap PO DAILY 09/07/20 [History Last Taken 01/11/21 14:00] citalopram 40 mg tablet 40 mg PO DAILY #30 tab 01/03/21 [Rx Last Taken 01/11/21 14:00] hydroxyzine pamoate 50 mg capsule 50 mg PO TID-QID PRN #60 cap 01/03/21 [Rx Last Taken 01/10/21] meclizine 25 mg tablet 25 mg PO TID PRN #90 tab 01/03/21 [Rx Last Taken 01/10/21] gabapentin 300 mg PO TID 01/12/21 [History Last Taken 01/11/21] Allergy/AdvReac Type Severity Reaction Status Date / Time No Known Allergies Allergy Verified 01/12/21 06:27 Family History Mother Diabetes Hypertension Father Hypertension Surgical History H/O adenoidectomy H/O dilation and curettage History of cholecystectomy History of tonsillectomy Social History household members: family housing: house current occupational status: employed current occupation: [employer] pets and animals: Yes Smoking Status: Never smoker second hand exposure: No alcohol intake: never substance use type: marijuana seatbelt use: always do you feel safe at home: Yes additional social history: - Igor History 5 Elective abortions 2 Hx Para Spontaneous abortions 2 Hx # Term Pregnancies Ectopic pregnancies Hx # Pregnancies Multiple births # of living children 0 Visit Details Expected Delivery Route/Plan Labor Preferences- CB/BF classes: [] labor support person: [] labor intervention preferences: [] pain management options preferred: [] cut cord/dad catch: [] : [] PP control planned: [] discussed possible routes of delivery and associated risks: [] special requests: [] Plans flu vaccine: [] tdap vaccine: [] rhogam: [] LARC form signed: [] Problem list reviewed and updated with the most current plan of care details and appropriate orders placed. Relevant counseling for the gestational age provided. Continue routine care and follow up unless otherwise noted in visit notes/problem list details OB Flowsheet Initial Weight: Not Recorded Date -?-?-?-?-?-?-?-?-?-?-?-?- EGA Weight BP Urine Prot -?-?-?-?-?-?-?-?-?-?-?-?- Glucose FHR FuHt Pres Dilation -?-?-?-?-?-?-?-?-?-?-?-?- Effaced St Visit Note 09/15/20 -?-?-?-?-?-?-?-?-?-?-?-?- 10w 1d 212 lb 6 oz 128/86 -?-?-?-?-?-?-?-?-?-?-?-?- 180 -?-?-?-?-?-?--?-?-?-?-?-?- GP - CRL 27mm co nsistent with LMP. 10/12/20 -?-?-?-?-?-?-?-?-?-?-?-?- 14w 0d 213 lb 122/70 -?-?-?-?-?-?-?-?-?-?-?-?- 160 -?-?-?-?-?-?-?-?-?-?-?-?- MH-work in for a nxiety. States since off lyrica fibromyalgia pain unbearable, between that and her anxiety not sleeping even though taking benadryl nightly. Active IUP on small US. Will consult with GP when available concerning med changes and call patient. 11/09/20 -?-?-?-?-?-?-?-?-?-?-?-?- 18w 0d 218 lb 8 oz 130/90 Nega tive -?-?-?-?-?-?-?-?-?-?-?-?- Negative 130 -?-?-?-?-?-?-?-?-?-?-?-?- GP - no cramping or bleeding. Still having issues with anxiety. No improvement with celexa. Has failed zoloft and prozac as well in the past. Only thing that has helped previously is benzos. Offered psych referral, but states will take too long to get in. Recommend seeing PCP to discuss other medication options. 12/06/20 -?-?-?-?-?-?-?-?-?-?-?-?- 21w 6d 218 lb 4 oz 110/64 Trac e -?-?-?-?-?-?-?-?-?-?-?-?- Negative 141 -?-?-?-?-?-?-?-?-?-?-?-?- -No VB, LOF. G ood FM. Has rpt US 12/20 to complete cardiac views 01/03/21 -?-?-?-?-?-?-?-?-?-?-?-?- 25w 6d 229 lb 122/74 Negative -?-?-?-?-?-?-?-?-?-?-?-?- Negative 140 25 -?-?-?-?-?-?-?-?-?-?-?-?- - no vb lof go od fm nor egular ctx discussed persistent anxiety and depression and nausea vomiting, ordered meclizine, vistaril, and increased celexa, encouraged to start cousneling 01/12/21 -?-?-?-?-?-?-?-?-?-?-?-?- 27w 1d 228 lb 132/85 132/81 132/81 153/74 153/74 137/70 Negative mg/dl (Nega tive) -?-?-?-?-?-?-?-?-?-?-?-?- -?-?-?-?-?-?-?-?-?-?-?-?- ROS Constitutional Constitutional: Denies fever(s) Cardiovascular Cardiovascular: Denies lightheadedness Gastrointestinal Gastrointestinal: Reports abdominal pain, nausea and vomiting; Denies constipation or diarrhea Physical Exam Const alert, oriented x3, no apparent distress, average body habitus, healthy appearing and well nourished HEENT normocephalic and moist oral mucous membranes Head and Scalp: atraumatic Eyes PERRL and EOMs intact bilaterally Neck full ROM Resp normal respiratory effort, no retractions and no use of accessory muscles Cardio regular rate and regular rhythm GI soft to palpation, non-tender and non-distended external exam normal and appearance of the vagina normal OB / External & Speculum: external exam normal and vaginal discharge; Negative for vaginal laceration, vulvular erythema, vulvular tenderness or vaginal bleeding Manual OB Exam: dilated 2, effaced 60 and station -1 Extremity normal to inspection and full ROM Skin no rashes or lesions noted Neuro no focal motor deficits and no sensory deficits noted Psych mental status grossly normal, affect normal, speech normal and activity/motor behavior normal NST FHR Rate Baby A Baseline: 150 Variability:: Moderate Accelerations:: 10 x 10 Decelerations:: None NST Reactive:: Yes FHR Category:: Category I Uterine Activity:: difficulty tracing Assessment & Plan (1) labor: QUALIFIERS: labor trimester: third trimester labor delivery status: without delivery Qualified Code(s): O60.03 - labor without delivery, third trimester PLAN: Patient presents with abdominal pain consistent with contractions, however difficulty tracing contractions on the monitor Cervix initially 1 cm on admission. Patient made change to 2 cm in 2 hours. Betamethasone given Magnesium sulfate started for neuro protection Indomethacin given for toco lysis Penicillin started for GBS unknown CBC and coags ordered U tox ordered Arranged for transport to [facility] for labor. (2) Abnormal glucose affecting : COMMENT: NL- 3GTT; will need repeated in 3rd trimester (3) Marijuana abuse: COMMENT: Positive on tox screen along with benzos on 09/15/20. (4) Uterine fibroid: QUALIFIERS: Uterine leiomyoma location: unspecified location Qualified Code(s): D25.9 - Leiomyoma of uterus, unspecified COMMENT: Largest 3cm on US in February (5) Supervision of normal : QUALIFIERS: Normal : normal first Trimester: second trimester Qualified Code(s): Z34.02 - Encounter for supervision of normal first , second trimester COMMENT: MULU: 04/12/2021, boy, Spouse: Igor (6) Family history of cleft lip: COMMENT: nephew (7) Fibromyalgia: COMMENT: Discontinued lyrica. Discussed at least needs to wait until after first trimester to consider meds. (8) Depression: QUALIFIERS: Depression Type: unspecified Qualified Code(s): F32.9 - Major depressive disorder, single episode, unspecified COMMENT: Previously on zoloft, but did not notice improvement. Celexa ordered at NOB visit. (9) Anxiety: COMMENT: Stopped xanax at beginning of . Very anxious - no improvement with celexa. Previously failed zoloft and prozac. Patient to discuss with PCP. (10) : QUALIFIERS: Weeks of gestation: 25 weeks Qualified Code(s): Z3A.25 - 25 weeks gestation of COMMENT: desires genetic and carrier, genetic low risk, carrier neg. (11) Obesity (BMI 30-39.9): COMMENT: Early 1h GCT ordered. Discussed appropriate weight gain. Multi Select Codes Visit Charges Office Visit/Consults: 09895 OV L3 Est Urinary/Genital Urinary/Genital CPT Codes: 42423-67 non-stress test Interp
[2021-01-12] MEDS: Magnesium Sulfate 20 GM/500 ML BAG IV (08:46)
[2021-01-12] MEDS: Indomethacin 25 MG Capsule 50 MG PO (08:57)
[2021-01-12 09:05] LABS: Amphetamine Urine VISTA NEGATIVE (<1000 ng/mL); Barbiturate Urine VISTA NEGATIVE (< 200 ng/mL); Benzodiazepine Urine VISTA NEGATIVE (< 200 ng/mL); Cocaine Urine VISTA NEGATIVE (< 300 ng/mL); Ecstacy Urine VISTA NEGATIVE (< 500 ng/mL); Methadone Urine VISTA NEGATIVE (< 300 ng/mL); PCP Urine VISTA NEGATIVE (< 25 ng/mL); THC Urine VISTA POSITIVE (< 50 ng/mL); Vista UDS pH Range 7
== END 2021-01-12 10:50 | disposition short-term general hospital (02) ==
LOC: WPOUT 05:10 → WP 05:11
PROVIDERS: PCP Family Medicine; Visit Provider Obstetrics & Gynecology
DX: O60.02 Preterm labor without delivery, second trimester (principal); Z3A.27 27 weeks gestation of pregnancy
CPT/HCPCS: 96361; 96365; 96367; 36415; 59025; 59050; 80307; 81002; 85025; 86850; 86900; 86901; 96372; 99218; J7120; G0378; J0702

== ENCOUNTER 2021-06-18 19:51 | Emergency (ER) | payer MEDICAID, SELFPAY ==
[2021-06-18 19:52] VITALS: BP 138/102; PULSE 80; RESP 16; TEMP 35.9; O2SAT 99; BMI 40.8
--- NOTE | 2021-06-18 20:31 | ED.VIS.GI ---
HPI HPI - GI History of Present Illness Chief Complaint: Abd Pain Informant: patient Abdominal Pain/Flank Pain Onset: Yesterday Context: Sudden Onset Timing: Continuous Quality: Aching Location: Epigastric, RUQ and LUQ Worsened by: Food Relieved by: - (Certain positions) Nausea/Vomiting/Emesis GI Symptom: Positive for Nausea and Vomiting Quality: Negative for Coffee ground and Hematemesis Diarrhea/Melena/Hematochezia GI Symptom: Positive for Diarrhea; Negative for Melena and Hematochezia Associated Symptoms Associated Symptoms: Negative for Dysuria, Frequency and Hematuria Narrative Narrative: Patient presents with abdominal pain that began yesterday evening. Patient states it began rather suddenly. Patient states pain is over the upper abdomen. Patient states it radiates into her back. Patient describes the pain as sharp. Patient states the pain is constant. Patient states her pain is worse with eating. Patient states it is better whenever she lies in certain positions. Patient admits to nausea and vomiting. Patient denies any hematemesis or coffee-ground emesis. Patient admits to diarrhea but denies any melena or hematochezia. Patient denies any dysuria or hematuria. [facility] Medical History (Updated 06/19/21 @ 01:[address] Altaf Campbell DO) Anxiety Depression Fibromyalgia H/O miscarriage, currently Migraine Obesity (BMI 30-39.9) Polysubstance (excluding opioids) dependence Thyroid nodule Uterine fibroid Home Medications citalopram 40 mg tablet 40 mg PO DAILY #30 tab 01/03/21 [Rx Last Taken 01/11/21 14:00] levonorgestrel 20.1 mcg/24 hrs (6 yrs) 52 mg intrauterine device 1 device INTRAUTERINE ONCE 04/13/21 [History Last Taken Unknown] pregabalin [Lyrica] 150 mg PO TID 06/18/21 [History Last Taken Unknown] omeprazole 20 mg PO DAILY #30 capsule 06/19/21 [Rx Last Taken Unknown] Allergy/AdvReac Type Severity Reaction Status Date / Time No Known Allergies Allergy Verified 06/18/21 19:54 Family History Mother Diabetes Hypertension Father Hypertension Surgical History H/O adenoidectomy H/O dilation and curettage History of cholecystectomy History of tonsillectomy Social History household members: family housing: house current occupational status: employed current occupation: [employer] pets and animals: Yes Smoking Status: Current every day smoker tobacco type: cigarettes second hand exposure: No alcohol intake: never substance use type: marijuana seatbelt use: always do you feel safe at home: Yes additional social history: - Igor GLASS [facility] ED Constitutional Constitutional ED: Denies chills or fever(s) Eyes Eyes: Denies blurry vision or change in vision ENT ENT ED: Denies rhinorrhea or sore throat Cardiovascular Cardiovascular: Reports chest pain; Denies palpitations Respiratory/Chest Respiratory/Chest: Denies cough or dyspnea Gastrointestinal Gastrointestinal: Reports abdominal pain, diarrhea, nausea and vomiting; Denies melena Genitourinary Genitourinary ED: Denies dysuria or hematuria Musculoskeletal Musculoskeletal: Reports back pain; Denies neck pain Integumentary Denies abscess or rash Neurologic Neurologic: Denies headache(s) or weakness Allergic/Immunologic Allergic/Immunologic ED: Denies mouth swelling or urticaria EXAM Physical Exam Const Vital Signs: 06/18/21 19:52 06/18/21 22:36 06/19/21 00:42 Temperature 96.7 F L Temperature Source Temporal Pulse Rate 80 66 56 L Respiratory Rate 16 15 15 Blood Pressure 138/102 H 123/83 H 120/70 Blood Pressure Mean 114 96 86 Pulse Ox 99 97 93 Oxygen Delivery Method Room Air Room Air Room Air 06/19/21 01:05 Temperature Temperature Source Pulse Rate 56 L Respiratory Rate 15 Blood Pressure 120/70 Blood Pressure Mean Pulse Ox 93 Oxygen Delivery Method Positive well nourished and well developed General Appearance ED: well developed HEENT Reports moist mucous membranes Neck supple and no JVD Resp normal respiratory effort and clear to auscultation bilaterally Cardio regular rate, regular rhythm and no murmurs GI normal to inspection, nondistended, normoactive bowel sounds Palpation: soft and tender epigastric, LUQ and RUQ; Negative for guarding or rebound tenderness present Extremity normal to inspection General Extremety ED: Negative for edema or tenderness General Extremity: Negative for edema Neuro oriented x3, CN's II-XII intact bilaterally, moves all extremities and no sensory deficits noted Sensorium / Orientation: alert Motor Exam: strength 5/5 throughout Psych mental status grossly normal Skin no rashes or lesions noted MDM MDM MDM Narrative Medical decision making narrative: Patient was given IV fluids, morphine, and Zofran initially. CBC and comprehensive metabolic profile were obtained were within normal limits. Serum hCG was negative. Lipase was normal at 185. CT scan of the abdomen pelvis was obtained. There are uterine fibroids noted in the pelvis. There is no other acute abnormality noted. This was interpreted by the radiologist and reviewed by myself. Patient was given a repeat dose of morphine here. Patient was advised of her findings. Patient was instructed to start with liquids and advance to a bland diet then to a regular diet as she starts to feel better. Patient was given a prescription for Prilosec. Patient was instructed to follow-up with her primary care physician in 5 to 7 days. Patient understood and was agreeable with the plan. All questions were answered. Lab Data Attestation: I reviewed the patient's lab results. Labs: Laboratory Results - last 24 hr 06/18/21 06/18/21 06/18/21 20:21 20:21 20:21 WBC 10.6 RBC 4.96 Hgb 14.0 Hct 42.3 MCV 85.3 MCH 28.2 MCHC 33.1 RDW Std Deviation 44.2 H RDW Coeff of Anna 14.2 Plt Count 376 MPV 10.3 Immature Gran % (Auto) 0.200 Neut % (Auto) 45.4 L Lymph % (Auto) 43.5 H Eagle % (Auto) 6.8 Eos % (Auto) 3.3 Baso % (Auto) 0.8 Absolute Neuts (auto) 4.8 Absolute Lymphs (auto) 4.60 H Nucleated RBC % 0 Sodium 140 Potassium 3.5 Chloride 110 H Carbon Dioxide 25.0 Anion Gap 5 BUN 12 Creatinine 0.80 Estim Creat Clear Calc 79.11 Est GFR (MDRD) Af Amer 106 Est GFR (MDRD) Non-Af 88 BUN/Creatinine Ratio 15.0 Glucose 108 H Calcium 8.4 L Total Bilirubin 0.30 AST 20 ALT 40 Alkaline Phosphatase 100 Total Protein 7.4 Albumin 3.3 Globulin 4.1 Albumin/Globulin Ratio 0.8 L Lipase 185 Serum , Qual NEGATIVE Radiography Diagnostic Testing: Clinical Impression(s) from Imaging Studies Abdomen/Pelvis CT 06/18/21 21:16 IMPRESSION: 1. Low-density masses in the uterus compatible with fibroids. If indicated further evaluation with ultrasound beneficial. No other acute abnormalities are seen within the abdomen or pelvis. 2. Stable noncalcified nodules in the right lower lobe. Individualized dose optimization techniques were used for this CT. at 2355 Reported and signed by: Dwain Prakash MD Electronically Signed: Dwain Prakash MD at 23:54 EST Tel , Service support , Discharge Plan Triage Chief Complaint: Abd Pain ED Provider: Altaf Campbell Dx/Rx/DC Orders Clinical Impression: Gastritis, Abdominal pain Instructions: ED Abdominal Pain Unkn Cause Fem, ED Gastritis (Adult) Prescriptions: New omeprazole [omeprazole] 20 MG capsule 20 mg PO DAILY Qty: 30 RF: 0 No Action citalopram 40 mg tablet 40 mg PO DAILY Qty: 30 RF: 4 Liletta 20.1 mcg/24 hrs (6 yrs) 52 mg intrauterine device 1 device intrauterine ONCE RF: 0 pregabalin [Lyrica] 150 mg Capsule 150 mg PO TID RF: 0 Primary Care Provider: Kwesi Hall NP Referrals: Kwesi Hall NP, ASSOCIATE MUSIC PROFESSOR-C [Primary Care Provider] - 3-5 Days Disposition Disposition: Home, Self Care Discharge Date/Time: 06/19/21 01:13
--- NOTE | 2021-06-18 21:16 | CT_ITS ---
EXAM: CT ABDOMEN AND PELVIS WITH INTRAVENOUS CONTRAST : 1990 CLINICAL INDICATION: Abdominal pain -- IV PO Contrast TECHNIQUE: Helically acquired images were obtained of the abdomen and pelvis with intravenous contrast. This CT exam was performed using one or more of the following dose reduction techniques: automated exposure control, adjustment of the mA and/or kV according to patient size, and/or use of iterative reconstruction technique. This report was created using Attributor report generation technology. CONTRAST: Oral Tamp; IV Gastrografin Tamp; 100mL Isovue-300 COMPARISON: 01/03/2019 FINDINGS: LOWER THORAX: Noncalcified nodules in the right lower lobe which are stable. No cardiomegaly. No significant pericardial effusion. ABDOMEN: LIVER: Unremarkable. Homogeneous. No focal mass. GALLBLADDER AND BILE DUCTS: The gallbladder is not visualized and may be surgically absent. No intra- or extrahepatic biliary ductal dilation. PANCREAS: Unremarkable. No focal cystic or solid mass. SPLEEN: Unremarkable. Normal size without focal cystic or solid mass. ADRENALS: Unremarkable. No nodules. KIDNEYS AND URETERS: Unremarkable. Normal renal size and position. No hydronephrosis. STOMACH AND BOWEL: Unremarkable. No stomach or bowel distention. No focal inflammatory change. PELVIS: APPENDIX: No evidence of acute appendicitis. BLADDER: Unremarkable. REPRODUCTIVE: There are low-density masses in the uterus measures 3.9 x 4.0 x 5.0 cm and 5.0 x 4.6 x 4.3 cm compatible with uterine fibroids. There is an intrauterine device in place. ABDOMEN and PELVIS: INTRAPERITONEAL SPACE: Unremarkable. No ascites or other fluid collection. No free air. BONES/JOINTS: Unremarkable. No suspicious lytic or blastic abnormality. SOFT TISSUES: Unremarkable. No discrete abdominal or pelvic wall hernia. VASCULATURE: Unremarkable. Abdominal aorta is non-dilated. LYMPH NODES: Unremarkable. No enlarged lymph nodes. CT/Abdomen/Pelvis WITH Contrast IMPRESSION: 1. Low-density masses in the uterus compatible with fibroids. If indicated further evaluation with ultrasound beneficial. No other acute abnormalities are seen within the abdomen or pelvis. 2. Stable noncalcified nodules in the right lower lobe. Individualized dose optimization techniques were used for this CT. at 2355 Reported and signed by: Dwain Prakash MD Electronically Signed: Dwain Prakash MD at 23:54 EST Tel , Service support ,
[2021-06-18 21:25] LABS: Absolute Neutrophil Count 4.8 X10^3/uL (2.0-7.7); Basophil# 0.08 X10^3/uL; Basophil% 0.8 % (0-1); Eosinophil# 0.35 X10^3/uL; Eosinophils% 3.3 % (0-5); Hematocrit 42.3 % (37-47); Lymphocyte % 43.5 % (19-41); Mean Corp Hgb Conc 33.1 g/dL (32-36); Mean Corpuscular Hgb 28.2 pg (27.0-32.0); Mean Corpuscular Volume 85.3 fL (81-99); Mean Platelet Vol. 10.3 fl (6.2-12.0); Monocyte# 0.72 X10^3/uL; Monocyte% 6.8 % (0-10); NRBC Flagged by Analyzer 0 % (0-5); Neutrophil # 4.81 X10^3/uL (2.7-7.7); Neutrophil % 45.4 % (47-70); Platelet Count 376 K/mm3 (150-450); RBC Distribution Width CV 14.2 % (11.6-14.6); RBC Distribution Width SD 44.2 fl (35.1-43.9); Red Blood Count 4.96 M/mm3 (4.2-5.4); White Blood Count 10.6 K/mm3 (4.4-11.0)
[2021-06-18] MEDS: Morphine 4 MG/ML Syringe IV ×2 (21:29→23:39)
[2021-06-18] MEDS: 0.9% Normal Saline 1,000 ML 1000 ML IV (21:29)
[2021-06-18] MEDS: Ondansetron 4 MG/2 ML Vial IV (21:30)
[2021-06-18 21:39] LABS: Internal QC Validated? YES +Cl - CLEAR BKGD; Pregnancy, Serum, hCG Quali. NEGATIVE Negative
[2021-06-18 21:41] LABS: ALB/GLOB Ratio 0.8 RATIO (0.9-2.4); AST(SGOT) 20 U/L (15-37); Alanine Aminotransfer ALT/SGPT 40 U/L (13-56); Albumin, Serum 3.3 g/dL (3.2-5.0); Alkaline Phosphatase 100 U/L (45-117); Anion Gap 5 (5-15); BUN 12 mg/dL (7-18); Calcium,Total 8.4 mg/dL (8.5-10.1); Chloride 110 mmol/L (98-107); EST Glomerular Filtration Rate 88 mL/min (>60); Est Glom Filt Rate - Afr Amer 106 mL/min (>60); Estimated Creatinine Clearance 79.11 ml/min; Globulin 4.1 g/dL (2.2-4.2); Glucose 108 mg/dL (74-106); Lipase 185 U/L (73-393); Potassium 3.5 mmol/L (3.5-5.1); Protein, Total 7.4 g/dL (6.4-8.2); Sodium Level 140 mmol/L (136-145)
[2021-06-18 22:36] VITALS: BP 123/83; PULSE 66; RESP 15; O2SAT 97
[2021-06-19 00:42] VITALS: BP 120/70; PULSE 56; RESP 15; O2SAT 93
[2021-06-19 01:05] VITALS: BP 120/70; PULSE 56; RESP 15; O2SAT 93
== END 2021-06-19 01:13 | disposition home or self-care (01) ==
LOC: ED 20:22
PROVIDERS: Emergency Provider Emergency Medicine; PCP Nurse Practitioner Family
DX: K29.70 Gastritis, unspecified, without bleeding (principal); F41.9 Anxiety disorder, unspecified; F32.9 Major depressive disorder, single episode, unspecified; M79.7 Fibromyalgia; F17.210 Nicotine dependence, cigarettes, uncomplicated; Z79.899 Other long term (current) drug therapy
CPT/HCPCS: 74177; 80053; 83690; 84703; 85025; 96361; 96374; 96375; 96376; 99284; J7030; Q9967; A4216; J2405

== ENCOUNTER 2021-07-18 09:51 | Emergency (ER) | payer MEDICAID, SELFPAY ==
[2021-07-18 09:51] VITALS: BP 129/80; PULSE 82; RESP 20; TEMP 36.6; O2SAT 98; BMI 32.9
--- NOTE | 2021-07-18 10:25 | EDS_ITS ---
HPI History of Present Illness Chief Complaint: Back Narrative Narrative: Patient presenting for evaluation secondary to back pain. Patient reports that over the course of the last month or 2 she has been dealing with back pain. Is diffuse in her thoracic and lower back. Its worse with movement. Its been associated with spasm in her muscles, and when she walks she states that she will get some pain that radiates down into her buttocks bilaterally. Patient has been trying remedies at home including a course of pain medications and muscle relaxers by her primary care, [id number] medications, heat and ice, stretching and she recently started a regimen with a chiropractor with some manipulations that started yesterday. Patient reports that she is having some worsening of her symptoms. Patient denies any numbness or weakness, bowel or bladder incontinence, fevers chills night sweats unintended weight loss recent injections or surgery. Pain is moderate to severe. Review of systems otherwise negative. [facility] Medical History (Updated 07/18/21 @ 10:[address] Carlos Pedroza MD) Anxiety Depression Fibromyalgia H/O miscarriage, currently Migraine Obesity (BMI 30-39.9) Polysubstance (excluding opioids) dependence Thyroid nodule Uterine fibroid Home Medications levonorgestrel 20.1 mcg/24 hrs (6 yrs) 52 mg intrauterine device 1 device INTRAUTERINE ONCE 04/13/21 [History Last Taken Unknown] pregabalin [Lyrica] 150 mg PO TID 06/18/21 [History Last Taken Unknown] cyclobenzaprine 10 mg PO TID PRN #20 tablet 07/18/21 [Rx Last Taken Unknown] ketorolac 10 mg PO Q6H 5 Days #20 tab 07/18/21 [Rx Last Taken Unknown] Allergy/AdvReac Type Severity Reaction Status Date / Time No Known Allergies Allergy Verified 06/18/21 19:54 Family History Mother Diabetes Hypertension Father Hypertension Surgical History H/O adenoidectomy H/O dilation and curettage History of cholecystectomy History of tonsillectomy Social History household members: family housing: house current occupational status: employed current occupation: [employer] pets and animals: Yes Smoking Status: Current every day smoker tobacco type: cigarettes second hand exposure: No alcohol intake: never substance use type: marijuana seatbelt use: always do you feel safe at home: Yes additional social history: - Igor GLASS ED Constitutional Constitutional ED: Reports other Details: Denies recent surgeries, or injections ; Denies chills, fever(s), sweats or weight loss Cardiovascular Cardiovascular: Denies chest pain Respiratory/Chest Respiratory/Chest: Denies dyspnea Gastrointestinal Gastrointestinal: Reports other Details: Denies Bowel Incontinence ; Denies abdominal pain Genitourinary Genitourinary ED: Reports other Details: Denies Bladder Incontinence Musculoskeletal Musculoskeletal: Reports back pain Integumentary Reports other Details: No Petechiae ; Denies rash Neurologic Neurologic: Reports other Details: Denies Numbness, or Weakness Psychiatric Psychiatric: Reports other Details: Denies history of IV Drug abuse Hematologic/Lymphatic Hematologic/Lymphatic: Denies lymphadenopathy EXAM Physical Exam Const Vital Signs: 07/18/21 09:51 Temperature 97.8 F Temperature Source Temporal Pulse Rate 82 Respiratory Rate 20 H Blood Pressure 129/80 H Blood Pressure Mean 96 Pulse Ox 98 Oxygen Delivery Method Room Air Positive well nourished and well developed Constitutional Narrative: Heavyset female not acutely distressed General Appearance ED: well developed and NAD HEENT Reports normocephalic and head/scalp atraumatic Eyes EOMs intact bilaterally Neck supple Resp normal respiratory effort and clear to auscultation bilaterally Cardio regular rate, regular rhythm and no murmurs Bruits: other Other Details: 2+ Radial Pulses 2+ DP Pulses 2+ PT Pulses Peripheral Pulses: radial pulses present, posterior tibial pulses present and dorsalis pedis pulses present GI normal to inspection, nondistended, normoactive bowel sounds, soft to palpation and non-tender Palpation: Negative for pulsatile mass Back/Spine normal to inspection Back/Spine Narrative: Diffuse nonlocalizing thoracic and lumbar spine and paraspinal tenderness to palpation Thoracic Spine / Upper Back: Negative for thoracic spinal tenderness Lumbar Spine / Lower Back: straight leg raise negative bilaterally; Negative for lumbar spinal tenderness Extremity normal to inspection Neuro oriented x3 and no sensory deficits noted Neuro Narrative: Motor: Hip flexion Knee flexion Knee extension Dorsiflexion Plantar Flexion Extensor Hallicus longus Sensorium / Orientation: alert Sensory Exam: other Motor Exam: strength 5/5 throughout Deep Tendon Reflexes: Rt Patellar (L4): 2+, Lt Patellar (L4): 2+, Rt Ankle (S1): 2+ and Lt Ankle (S1): 2+ Deep Tendon Reflexes Back: Rt Patellar (L4): 2+, Lt Patellar (L4): 2+, Rt Ankle (S1): 2+ and Lt Ankle (S1): 2+ Plantar Reflex: Other: bilateral (No pathologic clonus) Psych mental status grossly normal Skin no rashes or lesions noted Trauma: other No petechiae MDM MDM MDM Narrative Medical decision making narrative: Patient presenting for evaluation secondary to back pain. She has diffuse back pain and no red flag signs or symptoms. Patient reports that she had imaging by her chiropractor that noted some scoliosis I do not feel that repeat imaging is indicated at this point. She has diffuse musculoskeletal pain, this seems all muscular and associated with spasm as she was having paroxysms of pain while I was in the room. Patient will be treated with a course of Toradol and Flexeril in the emergency department I will discharge her with a course of the same. She was recommended stretching exercises and follow-up with her primary care physician and chiropractor. Patient was discharged in stable condition. Discharge Plan Triage Chief Complaint: Back ED Provider: Carlos Pedroza Dx/Rx/DC Orders Clinical Impression: Back pain Instructions: ED Back Pain (Acute or Chronic) Prescriptions: New ketorolac 10 mg tablet 10 mg PO Q6H 5 Days Qty: 20 RF: 0 cyclobenzaprine 10 mg tablet 10 mg PO TID PRN (Reason: Muscle Spasm) Qty: 20 RF: 0 No Action Liletta 20.1 mcg/24 hrs (6 yrs) 52 mg intrauterine device 1 device intrauterine ONCE RF: 0 pregabalin [Lyrica] 150 mg Capsule 150 mg PO TID RF: 0 Primary Care Provider: Kwesi Hall NP Referrals: Kwesi Hall NP, [employer]ING ASSEMBLER SUPERVISOR-[employer] [Primary Care Provider] - Keep Tanika appointment Disposition Disposition: Home, Self Care
[2021-07-18] MEDS: cycloBENZAPRine HCl 10 MG Tablet PO (11:12)
[2021-07-18] MEDS: Ketorolac 30 MG/ML Syringe IM (11:13)
--- NOTE | 2021-07-18 11:52 | ED.RN ---
THIS NURSE REVIEWED D/C INSTRUCTIONS WITH PT AND VISITOR. PT STATES THIS IS FUCKING BULLSHIT. I AM NEVER COMING FOR [facility]. THIS IS A BUNCH OF FUCKING BULLSHIT. PT YELLING AND SCREAMING HER ENTIRE WALK OUT OF THE DEPARTMENT.
== END 2021-07-18 11:53 | disposition home or self-care (01) ==
LOC: ED 10:39
PROVIDERS: Emergency Provider Emergency Medicine; PCP Nurse Practitioner Family
DX: M54.50 Low back pain, unspecified (principal); M54.6 Pain in thoracic spine; F17.210 Nicotine dependence, cigarettes, uncomplicated
CPT/HCPCS: 96372; 99283

== ENCOUNTER 2021-10-04 10:27 | Emergency (ER) | payer MEDICAID, SELFPAY ==
[2021-10-04 10:28] VITALS: BP 132/92; PULSE 90; RESP 22; TEMP 36.7; O2SAT 97; BMI 40.6
--- NOTE | 2021-10-04 11:01 | CT_ITS ---
STUDY: CT ABDOMEN AND PELVIS WITH CONTRAST REASON FOR EXAM: Female, 31 years old. Abdominal pain. RADIATION DOSAGE (If Supplied By Facility): CTDIvol = ( 21.59 ) mGy, DLP = ( 1269.24 ) mGycm TECHNIQUE: Transaxial images were obtained from the dome of the diaphragm to the symphysis pubis without oral contrast. IV 100mL Isovue-300 was administered. Sagittal and coronal images were reconstructed. Individualized dose optimization techniques were used for this CT. COMPARISON: Comparison is made with prior study dated 06/18/2021. FINDINGS: Minimal increased markings at the lung bases suggestive scarring slightly more prominent in the lateral anterior aspect of the left lower lobe. The visualized portions of the heart are within normal limits. There is decreased attenuation of the liver consistent with steatosis. The patient is status post cholecystectomy. Normal spleen. Normal pancreas. Normal bilateral adrenal glands. Normal right kidney. Normal left kidney. Incidental note is made of a left retroaortic renal vein. Normal visualized stomach. Normal small intestine. Normal colon. The appendix is visualized and appears normal. Normal abdominal aorta. Normal inferior vena cava. Normal retroperitoneum. Normal urinary bladder. Enlarged fibroid uterus. IUD is seen within the uterus. There has been no change. Small bilateral inguinal hernias containing fat. Normal osseous structures. CT/Abdomen/Pelvis W IV Cont ONLY IMPRESSION: Enlarged fibroid uterus. Status post cholecystectomy. Electronically Signed: Félix Evans MD at 12:18 EST ,
[2021-10-04 11:24] LABS: Mucous, Urine 0 SEEN /hpf (<or=2+); Red Blood Cells-Urine 0 SEEN /hpf (0-5)
[2021-10-04 11:26] LABS: Absolute Lymphocyte Count 2.85 X10^3/uL (0.83-4.51); Absolute Neutrophil Count 4.4 X10^3/uL (2.0-7.7); Basophil# 0.08 X10^3/uL; Eosinophil# 0.16 X10^3/uL; Hematocrit 42.2 % (37-47); Hemoglobin 14.5 g/dL (12.0-15.0); Lymphocyte # 2.85 X10^3/ul (0.83-4.51); Lymphocyte % 35.7 % (19-41); Mean Corp Hgb Conc 34.4 g/dL (32-36); Mean Corpuscular Hgb 30.1 pg (27.0-32.0); Mean Corpuscular Volume 87.6 fL (81-99); Mean Platelet Vol. 9.6 fl (6.2-12.0); Monocyte# 0.49 X10^3/uL; Monocyte% 6.1 % (0-10); NRBC Flagged by Analyzer 0 % (0-5); Neutrophil # 4.39 X10^3/uL (2.7-7.7); Neutrophil % 54.9 % (47-70); Platelet Count 351 K/mm3 (150-450); RBC Distribution Width CV 14.1 % (11.6-14.6); RBC Distribution Width SD 45.3 fl (35.1-43.9); Red Blood Count 4.82 M/mm3 (4.2-5.4)
[2021-10-04] MEDS: Ondansetron 4 MG/2 ML Vial IV (11:27)
[2021-10-04] MEDS: Morphine 4 MG/ML Syringe IV (11:27)
[2021-10-04 11:29] LABS: Color, Urine Straw (Yellow); Glucose, Dipstick Normal (Normal); Ketone-Dipstick Negative (Negative); Leukocyte Esterase-Dipstick 100 /ul (Negative); Nitrite-Dipstick Negative (Negative); Occult Blood-Urine Negative /ul (Negative); Protein-Dipstick Negative (Negative); Specific Gravity, Urine 1.005 (1.002-1.030); Urine Bilirubin Dipstick Negative (Negative); Urine Clarity Sl. Cloudy (Clear); Urine Urobilinogen Normal (Normal)
[2021-10-04 11:40] LABS: Bacteria RARE /hpf (None Seen); Squamous Epithelial Cells - UA 0-5 SEEN /hpf (5-10); White Blood Cells 0-5 SEEN /hpf (0-5)
[2021-10-04 11:43] LABS: ALB/GLOB Ratio 0.9 RATIO (0.9-2.4); AST(SGOT) 20 U/L (15-37); Alanine Aminotransfer ALT/SGPT 43 U/L (13-56); Albumin, Serum 3.6 g/dL (3.2-5.0); Alkaline Phosphatase 100 U/L (45-117); Anion Gap 3 (5-15); BUN 15 mg/dL (7-18); BUN/Creat Ratio 21.4 RATIO (10-20); Calcium,Total 8.8 mg/dL (8.5-10.1); Chloride 110 mmol/L (98-107); EST Glomerular Filtration Rate 102 mL/min (>60); Est Glom Filt Rate - Afr Amer 123 mL/min (>60); Estimated Creatinine Clearance 90.41 ml/min; Glucose 82 mg/dL (74-106); Protein, Total 7.6 g/dL (6.4-8.2); Sodium Level 140 mmol/L (136-145)
--- NOTE | 2021-10-04 11:48 | ED.VIS.GI ---
HPI HPI - GI History of Present Illness Chief Complaint: GI Bleed Informant: patient Narrative Narrative: Patient presents with abdominal pain. She states she has been dealing with abdominal pain and intermittent diarrhea for a long time. She is has not gotten this checked by GI. She has had colonoscopy recommended to her but never followed up. She states she is having another episode. She had some diarrhea for the last 3 days that is soft and brown. Is not watery. Since last night it noted to be a little bit jem. Its not sticky or tarry like. She also has inflammation of her hemorrhoids which commonly happens when she gets the diarrhea. There is no family history of inflammatory bowel disease. She has no joint pains or rashes. Nothing specifically makes this better or worse. No known history of diverticulitis. Patient does occasionally take nonsteroidals but just as needed. She is not on Toradol now. She normally takes Tylenol rather than ibuprofen or Aleve though. [facility] Medical History (Updated 10/04/21 @ 13:[address] Long Vickers MD) Anxiety Depression Fibromyalgia H/O miscarriage, currently Migraine Obesity (BMI 30-39.9) Polysubstance (excluding opioids) dependence Thyroid nodule Uterine fibroid Home Medications pregabalin [Lyrica] 150 mg PO TID 06/18/21 [History Last Taken Unknown] dicyclomine 20 mg PO TID #20 tab 10/04/21 [Rx Last Taken Unknown] hydrocortisone [Procto-Med HC] 1 applic MT DAILY #30 g 10/04/21 [Rx Last Taken Unknown] Allergy/AdvReac Type Severity Reaction Status Date / Time No Known Allergies Allergy Verified 06/18/21 19:54 Family History Mother Diabetes Hypertension Father Hypertension Surgical History H/O adenoidectomy H/O dilation and curettage History of cholecystectomy History of tonsillectomy Social History household members: family housing: house current occupational status: employed current occupation: [employer] pets and animals: Yes Smoking Status: Current every day smoker tobacco type: cigarettes second hand exposure: No alcohol intake: never substance use type: marijuana seatbelt use: always do you feel safe at home: Yes additional social history: - Igor GLASS ROS ED Constitutional Constitutional ED: Denies chills or fever(s) ENT ENT ED: Denies rhinorrhea or sore throat Cardiovascular Cardiovascular: Denies chest pain Respiratory/Chest Respiratory/Chest: Denies cough or dyspnea Gastrointestinal Gastrointestinal: Reports abdominal pain, diarrhea and nausea; Denies constipation or vomiting Genitourinary Genitourinary ED: Denies dysuria or hematuria Musculoskeletal Musculoskeletal: Denies arthralgias or myalgias Integumentary Denies rash Neurologic Neurologic: Denies headache(s) Psychiatric Psychiatric: Reports anxiety Endocrine Endocrinology: Denies polydipsia or polyuria Hematologic/Lymphatic Hematologic/Lymphatic: Denies easy bleeding or easy bruising EXAM Physical Exam Const Vital Signs: 10/04/21 10:28 Temperature 98.0 F Temperature Source Temporal Pulse Rate 90 Respiratory Rate 22 H Blood Pressure 132/92 H Blood Pressure Mean 105 Pulse Ox 97 Oxygen Delivery Method Room Air Positive well nourished; Negative for unkempt General Appearance ED: Negative for unkempt HEENT normocephalic and atraumatic Eyes PERRL and EOMs intact bilaterally Neck no lymphadenopathy and supple Resp normal respiratory effort and clear to auscultation bilaterally Auscultation: Negative for rales, rhonchi or wheezes Cardio regular rate, regular rhythm and no murmurs GI non-distended GI Narrative: Mild lower abdominal tenderness mostly on the left. No rebound or guarding Auscultation: normoactive bowel sounds Palpation: soft Back/Spine no CVA tenderness Extremity full ROM Neuro Sensorium / Orientation: alert Psych mental status grossly normal Appearance: Negative for unkempt Skin Lesions: no lesions Rashes: no rashes MDM MDM Lab Data Labs: Laboratory Results - last 24 hr 10/04/21 10/04/21 10/04/21 11:10 11:20 11:20 WBC 8.0 RBC 4.82 Hgb 14.5 Hct 42.2 MCV 87.6 MCH 30.1 MCHC 34.4 RDW Std Deviation 45.3 H RDW Coeff of Anna 14.1 Plt Count 351 MPV 9.6 Immature Gran % (Auto) 0.300 Neut % (Auto) 54.9 Lymph % (Auto) 35.7 [place] % (Auto) 6.1 Eos % (Auto) 2.0 Baso % (Auto) 1.0 Absolute Neuts (auto) 4.4 Absolute Lymphs (auto) 2.85 Nucleated RBC % 0 Sodium 140 Potassium 4.0 Chloride 110 H Carbon Dioxide 27.0 Anion Gap 3 L BUN 15 Creatinine 0.70 Estim Creat Clear Calc 90.41 Est GFR (MDRD) Af Amer 123 Est GFR (MDRD) Non-Af 102 BUN/Creatinine Ratio 21.4 H Glucose 82 Calcium 8.8 Total Bilirubin 0.10 L AST 20 ALT 43 Alkaline Phosphatase 100 Total Protein 7.6 Albumin 3.6 Globulin 4.0 Albumin/Globulin Ratio 0.9 Serum , Qual Urine Color Straw Urine Clarity Sl. Cloudy Urine pH 5.0 Ur Specific [place] 1.005 Urine Protein Negative Urine Glucose (UA) Normal Urine Ketones Negative Urine Occult Blood Negative Urine Nitrite Negative Urine Bilirubin Negative Urine Urobilinogen Normal Ur Leukocyte Esterase 100 H Urine RBC 0 SEEN Urine WBC 0-5 SEEN Ur Squamous Epith Cells 0-5 SEEN Urine Bacteria RARE Urine Mucus 0 SEEN 10/04/21 11:20 WBC RBC Hgb Hct MCV MCH MCHC RDW Std Deviation RDW Coeff of Anna Plt Count MPV Immature Gran % (Auto) Neut % (Auto) Lymph % (Auto) [place] % (Auto) Eos % (Auto) Baso % (Auto) Absolute Neuts (auto) Absolute Lymphs (auto) Nucleated RBC % Sodium Potassium Chloride Carbon Dioxide Anion Gap BUN Creatinine Estim Creat Clear Calc Est GFR (MDRD) Af Amer Est GFR (MDRD) Non-Af BUN/Creatinine Ratio Glucose Calcium Total Bilirubin AST ALT Alkaline Phosphatase Total Protein Albumin Globulin Albumin/Globulin Ratio Serum , Qual NEGATIVE Urine Color Urine Clarity Urine pH Ur Specific [place] Urine Protein Urine Glucose (UA) Urine Ketones Urine Occult Blood Urine Nitrite Urine Bilirubin Urine Urobilinogen Ur Leukocyte Esterase Urine RBC Urine WBC Ur Squamous Epith Cells Urine Bacteria Urine Mucus Radiography Diagnostic Testing: Clinical Impression(s) from Imaging Studies Abdomen/Pelvis CT 10/04/21 11:01 IMPRESSION: Enlarged fibroid uterus. Status post cholecystectomy. Electronically Signed: Félix Evans MD at 12:18 EST , Discharge Plan Triage Chief Complaint: GI Bleed ED Provider: Long Vickers Dx/Rx/DC Orders Clinical Impression: Abdominal pain, Hemorrhoids Instructions: Abdominal Pain, ED Hemorrhoids Prescriptions: New hydrocortisone [Procto-Med HC] 2.5 % cream with perineal applicator 1 applic MT DAILY Qty: 30 RF: 0 dicyclomine 20 mg tablet 20 mg PO TID Qty: 20 RF: 0 No Action pregabalin [Lyrica] 150 mg Capsule 150 mg PO TID RF: 0 Primary Care Provider: Kwesi Hall NP Referrals: Kwesi Hall NP, PASTE UP WORKER-C [Primary Care Provider] - Disposition Disposition: Home, Self Care
[2021-10-04 11:53] LABS: Internal QC Validated? YES +Cl - CLEAR BKGD; Pregnancy, Serum, hCG Quali. NEGATIVE Negative
[2021-10-04] MEDS: Dicyclomine 20 MG/2 ML Vial IM (13:47)
[2021-10-04 13:52] VITALS: BP 136/96; PULSE 81; RESP 16
--- NOTE | 2021-10-04 13:53 | ED.RN ---
PT DECLINED WAITING FOR 20 MIN AFTER INJECTION OF BENTYL. FURTHER VOICED THAT WAS UPSET WE DID DIDN'T FIND ANYTHING WRONG, I'LL JUST KEEP SUFFERING FOR ANOTHER 10 YEARS. EDUCATED PT ON NEED TO SEEK [facility], PT DECLINES.
== END 2021-10-04 13:55 | disposition home or self-care (01) ==
PROVIDERS: Emergency Provider Emergency Medicine; PCP Nurse Practitioner Family; Visit Provider Emergency Medicine
DX: R10.32 Left lower quadrant pain (principal); Z68.41 Body mass index [BMI] 40.0-44.9, adult; K64.9 Unspecified hemorrhoids; M79.7 Fibromyalgia; E66.9 Obesity, unspecified; F17.210 Nicotine dependence, cigarettes, uncomplicated; Z79.899 Other long term (current) drug therapy
CPT/HCPCS: 74177; 80053; 81001; 84703; 85025; 96361; 96372; 96374; 96375; 99283; J7030; Q9967; A4216; J2405

== ENCOUNTER 2022-02-11 12:12 | Emergency (ER) | payer MEDICAID, SELFPAY ==
[2022-02-11 12:13] VITALS: BP 138/84; PULSE 63; RESP 19; TEMP 36.7; O2SAT 100; BMI 38.4
--- NOTE | 2022-02-11 12:25 | EKG12_ITS ---
Test Reason : COUGH Blood Pressure : / mmHG Vent. Rate : 063 BPM Atrial Rate : 063 BPM P-R Int : 150 ms QRS Dur : 076 ms QT Int : 408 ms P-R-T Axes : 053 047 043 degrees QTc Int : 417 ms Normal sinus rhythm with sinus arrhythmia Normal ECG Confirmed by BEN THEODORE, ILANA ([id number]), design editor OUSMANE DOBBS ([id number]) on 02/13/2022 9:46:30 AM Referred By: BRUNO Confirmed By:ILANA CONTRERAS MD
--- NOTE | 2022-02-11 12:27 | EDS_ITS ---
HPI History of Present Illness Chief Complaint: Cough Informant: patient Onset/Context/Timing Onset: Days (5 days) Context: Gradual Onset Current Severity: Moderate Maximum Severity: Moderate Narrative Narrative: Patient presents with URI symptoms for the past 5 days. Her 1-year-old child tested positive for COVID yesterday. She and her went to urgent care today to be tested. The healthcare provider there told the patient it sounded like she might have pneumonia and she should come to the emergency room. She does report fever at home this week. She had 1 episode of vomiting this morning. She is complaining of chest heaviness and pain. [facility] Medical History (Updated 02/11/22 @ 14:[address] Chari South MD) Anxiety Depression Fibromyalgia H/O miscarriage, currently Migraine Obesity (BMI 30-39.9) Polysubstance (excluding opioids) dependence Thyroid nodule Uterine fibroid Home Medications pregabalin 150 mg capsule (Lyrica) 150 mg PO TID 06/18/21 [History Last Taken Unknown] dicyclomine 20 mg tablet 20 mg PO TID #20 tabs 10/04/21 [Rx Last Taken Unknown] hydrocortisone 2.5 % topical cream with perineal applicator (Procto-Med HC) 1 applic OR DAILY #30 grams 10/04/21 [Rx Last Taken Unknown] albuterol sulfate 2.5 mg (3 mL) inhalation Q4H PRN #25 vials 02/11/22 [Rx Last Taken Unknown] prednisone 20 mg tablet 40 mg PO DAILY 3 days #6 tabs 02/11/22 [Rx Last Taken Unknown] Allergy/AdvReac Type Severity Reaction Status Date / Time No Known Allergies Allergy Verified 02/11/22 12:13 Family History Mother Diabetes Hypertension Father Hypertension Surgical History H/O adenoidectomy H/O dilation and curettage History of cholecystectomy History of tonsillectomy Social History household members: family housing: house current occupational status: employed current occupation: [employer] pets and animals: Yes Smoking Status: Current every day smoker tobacco type: cigarettes second hand exposure: No alcohol intake: never substance use type: marijuana seatbelt use: always do you feel safe at home: Yes additional social history: - Igor GLASS ED Constitutional Constitutional ED: Reports fever(s); Denies chills Eyes Eyes: Denies change in vision or discharge from eye(s) ENT ENT ED: Denies discharge from eye(s), rhinorrhea or sore throat Cardiovascular Cardiovascular: Reports chest pain; Denies palpitations Respiratory/Chest Respiratory/Chest: Reports cough and dyspnea; Denies sputum Gastrointestinal Gastrointestinal: Reports nausea and vomiting; Denies abdominal pain or diarrhea Genitourinary Genitourinary ED: Denies difficulty urinating or dysuria Musculoskeletal Musculoskeletal: Denies back pain or extremity pain Integumentary Denies Abrasions or rash Neurologic Neurologic: Reports headache(s); Denies weakness Psychiatric Psychiatric: Denies depression Endocrine Endocrinology: Denies polydipsia or polyuria Allergic/Immunologic Allergic/Immunologic ED: Denies lip swelling or urticaria EXAM Physical Exam Const Vital Signs: 02/11/22 12:13 02/11/22 12:48 02/11/22 13:07 Temperature 98.0 F Temperature Source Temporal Pulse Rate 63 66 Respiratory Rate 19 H 17 Respiratory Effort Normal Non-Labored Respiratory Depth Normal Respiratory Pattern Normal Normal Blood Pressure 138/84 H Blood Pressure Mean 102 Pulse Ox 100 Oxygen Delivery Method Room Air Room Air 02/11/22 13:33 Temperature Temperature Source Pulse Rate 63 Respiratory Rate 18 Respiratory Effort Respiratory Depth Respiratory Pattern Blood Pressure 113/83 H Blood Pressure Mean 93 Pulse Ox 100 Oxygen Delivery Method Room Air Positive well nourished and well developed General Appearance ED: well developed HEENT Reports normocephalic and head/scalp atraumatic Eyes PERRL and EOMs intact bilaterally Neck supple Chest Wall inspection of chest normal and palpation of chest normal Resp normal respiratory effort Resp Narrative: Mild inspiratory wheezes throughout. Cardio regular rate and regular rhythm GI normal to inspection, nondistended, normoactive bowel sounds Palpation: soft Back/Spine no CVA tenderness Extremity normal to inspection Neuro oriented x3 and no sensory deficits noted Sensorium / Orientation: alert Motor Exam: strength 5/5 throughout Psych Mood & Affect: anxious Skin no rashes or lesions noted MDM MDM MDM Narrative Medical decision making narrative: Patient placed on equipment monitor phototypesetting. EKG, chest x-ray, lab work obtained. GonzalezoNeb treatment given and COVID rapid test obtained. Lab Data Attestation: I reviewed the patient's lab results. Labs: Laboratory Results - last 24 hr 02/11/22 02/11/22 02/11/22 13:10 13:10 13:10 WBC 8.8 RBC 4.76 Hgb 14.0 Hct 42.3 MCV 88.9 MCH 29.4 MCHC 33.1 RDW Std Deviation 45.8 H RDW Coeff of Anna 14.2 Plt Count 369 MPV 10.3 Immature Gran % (Auto) 0.100 Neut % (Auto) 52.7 Lymph % (Auto) 36.6 [place] % (Auto) 5.5 Eos % (Auto) 4.1 Baso % (Auto) 1.0 Absolute Neuts (auto) 4.6 Absolute Lymphs (auto) 3.21 Nucleated RBC % 0 D-Dimer Quant (PE/DVT) 0.27 Sodium 138 Potassium 4.8 Chloride 109 H Carbon Dioxide 23.0 Anion Gap 6 BUN 13 Creatinine 0.86 Estim Creat Clear Calc 73.59 Est GFR (MDRD) Af Amer 97 Est GFR (MDRD) Non-Af 81 BUN/Creatinine Ratio 15.1 Glucose 156 H Calcium 8.6 Troponin I High Sens 4 Serum , Qual 02/11/22 13:10 WBC RBC Hgb Hct MCV MCH MCHC RDW Std Deviation RDW Coeff of Anna Plt Count MPV Immature Gran % (Auto) Neut % (Auto) Lymph % (Auto) [place] % (Auto) Eos % (Auto) Baso % (Auto) Absolute Neuts (auto) Absolute Lymphs (auto) Nucleated RBC % D-Dimer Quant (PE/DVT) Sodium Potassium Chloride Carbon Dioxide Anion Gap BUN Creatinine Estim Creat Clear Calc Est GFR (MDRD) Af Amer Est GFR (MDRD) Non-Af BUN/Creatinine Ratio Glucose Calcium Troponin I High Sens Serum , Qual NEGATIVE Rapid COVID: Negative Radiography Chest X-Ray - ED: 1 View, Read by ED Physician, Normal, Heart, Lungs and Mediastinum Diagnostic Testing: Clinical Impression(s) from Imaging Studies Chest X-Ray 02/11/22 12:31 IMPRESSION: No acute cardiopulmonary abnormality. Electronically Signed: Juan Ramon Barone MD at 12:54 EDT , EKG Initial EKG: Attestation: I personally reviewed and interpreted this EKG as follows: Interpretation: Sinus Rhythm (Sinus at 63 with no acute ischemia.) Treatment and Re-Evaluation Narrative: Patient had been given some Toradol for chest pain. She reported no significant improvement in this. Lab work is reviewed and normal. D-dimer is negative. Troponin is normal. Chest x-ray reveals no infiltrate. Rapid COVID test is negative. A PCR test was performed at urgent care and I advised her to check that result as well as she has had symptoms for 5 days. She does have significant anxiety and was given a dose of Ativan to help with this. Patient be given prescription for prednisone and an albuterol inhaler. Return instructions provided. Discharge Plan Triage Chief Complaint: Cough ED Provider: Chari South Dx/Rx/DC Orders Clinical Impression: Viral syndrome, Bronchitis Instructions: ED Bronchitis, No Antibiotic (Adult), ED Viral Syndrome (Adult) Prescriptions: New prednisone 20 mg tablet 40 mg PO DAILY 3 Days Qty: 6 0RF albuterol sulfate 2.5 mg /3 mL (0.083 %) solution for nebulization 2.5 mg inhalation Q4H PRN Qty: 25 0RF Rx Instructions: Use q4 hours and PRN for wheezing No Action pregabalin [Lyrica] 150 mg Capsule 150 mg PO TID hydrocortisone [Procto-Med HC] 2.5 % cream with perineal applicator 1 applic OR DAILY Qty: 30 0RF dicyclomine 20 mg tablet 20 mg PO TID Qty: 20 0RF Primary Care Provider: Kwesi Hall NP Referrals: Kwesi Hall NP, UNIFIED COMMUNICATIONS ARCHITECT-C [Primary Care Provider] - 1 Week Disposition Disposition: Home, Self Care
--- NOTE | 2022-02-11 12:31 | RAD_ITS ---
EXAM: XR CHEST, 1 VIEW CLINICAL INDICATION: sob, cp TECHNIQUE: Frontal view of the chest. This report was created using [employer] report generation technology. COMPARISON: XR Chest dated november 14 2017 FINDINGS: LUNGS AND PLEURAL SPACES: Unremarkable. No consolidation or edema. No pneumothorax. No effusion. HEART: Unremarkable. Normal heart size. MEDIASTINUM: Central airways and mediastinal contour are unremarkable. BONES/JOINTS: Unremarkable. SOFT TISSUES: Unremarkable. RAD/Chest 1 View (Portable) IMPRESSION: No acute cardiopulmonary abnormality. Electronically Signed: Juan Ramon Barone MD at 12:54 EDT ,
[2022-02-11] MEDS: Ipratropium/Albuterol Sulfate 3 ML AMPUL.NEB INHALATION (12:46)
[2022-02-11 12:48] VITALS: PULSE 66; RESP 17
[2022-02-11] MEDS: Ketorolac 30 MG/ML Syringe IV (13:03)
[2022-02-11 13:07] VITALS: O2SAT 98
[2022-02-11] MEDS: 0.9% Normal Saline 1,000 ML 150 ML IV (13:17)
[2022-02-11 13:23] LABS: Absolute Lymphocyte Count 3.21 X10^3/uL (0.83-4.51); Absolute Neutrophil Count 4.6 X10^3/uL (2.0-7.7); Basophil# 0.09 X10^3/uL; Eosinophil# 0.36 X10^3/uL; Eosinophils% 4.1 % (0-5); Hematocrit 42.3 % (37-47); Lymphocyte # 3.21 X10^3/ul (0.83-4.51); Lymphocyte % 36.6 % (19-41); Mean Corp Hgb Conc 33.1 g/dL (32-36); Mean Corpuscular Hgb 29.4 pg (27.0-32.0); Mean Corpuscular Volume 88.9 fL (81-99); Mean Platelet Vol. 10.3 fl (6.2-12.0); Monocyte# 0.48 X10^3/uL; Monocyte% 5.5 % (0-10); NRBC Flagged by Analyzer 0 % (0-5); Neutrophil # 4.61 X10^3/uL (2.7-7.7); Neutrophil % 52.7 % (47-70); Platelet Count 369 K/mm3 (150-450); RBC Distribution Width CV 14.2 % (11.6-14.6); RBC Distribution Width SD 45.8 fl (35.1-43.9); Red Blood Count 4.76 M/mm3 (4.2-5.4); White Blood Count 8.8 K/mm3 (4.4-11.0)
[2022-02-11 13:27] LABS: Internal QC Validated? YES +Cl - CLEAR BKGD; Pregnancy, Serum, hCG Quali. NEGATIVE Negative
[2022-02-11 13:33] VITALS: BP 113/83; PULSE 63; RESP 18; O2SAT 100
[2022-02-11 13:34] LABS: D-Dimer Quantitative (DVT/PE) 0.27 FEU/ug/m (0.27-0.49)
[2022-02-11 13:38] LABS: Anion Gap 6 (5-15); BUN 13 mg/dL (7-18); BUN/Creat Ratio 15.1 RATIO (10-20); Calcium,Total 8.6 mg/dL (8.5-10.1); Chloride 109 mmol/L (98-107); Creatinine, Serum 0.86 mg/dL (0.55-1.02); EST Glomerular Filtration Rate 81 mL/min (>60); Est Glom Filt Rate - Afr Amer 97 mL/min (>60); Estimated Creatinine Clearance 73.59 ml/min; Glucose 156 mg/dL (74-106); Potassium 4.8 mmol/L (3.5-5.1); Sodium Level 138 mmol/L (136-145); Troponin-I HS 4 pg/mL (3.0-54.0)
[2022-02-11] MEDS: LORazepam 2 MG/ML Syringe 0.5 MG IV (14:08)
[2022-02-11 14:40] VITALS: BP 134/75; PULSE 85; RESP 15; O2SAT 98
== END 2022-02-11 14:42 | disposition home or self-care (01) ==
PROVIDERS: Emergency Provider Emergency Medicine; PCP Nurse Practitioner Family; Visit Provider Emergency Medicine
DX: B34.9 Viral infection, unspecified (principal); J40 Bronchitis, not specified as acute or chronic; F12.90 Cannabis use, unspecified, uncomplicated; F17.210 Nicotine dependence, cigarettes, uncomplicated
CPT/HCPCS: 71045; 80048; 84484; 84703; 85025; 85379; 87811; 93005; 94640; 96361; 96374; 96375; 99283; J7030

== ENCOUNTER → 2022-06-05 | Outpatient (CLI) | payer BC, MEDICAID, SELFPAY | END | disposition home or self-care (01) | LOC: LABSPEC 06-06 06:47 | PROVIDERS: PCP Nurse Practitioner Family; Visit Provider Obstetrics & Gynecology | DX: R10.2 Pelvic and perineal pain (principal) | CPT/HCPCS: 87070; 87205 ==

== ENCOUNTER 2022-07-13 07:51 | Observation (INO) | payer BC, MEDICAID, SELFPAY ==
[2022-07-10 10:38] LABS: Absolute Neutrophil Count 10.9 X10^3/uL (2.0-7.7); Basophil# 0.11 X10^3/uL; Basophil% 0.7 % (0-1); Eosinophils% 1.3 % (0-5); Hematocrit 43.6 % (37-47); Hemoglobin 14.6 g/dL (12.0-15.0); Lymphocyte % 22.5 % (19-41); Mean Corp Hgb Conc 33.5 g/dL (32-36); Mean Corpuscular Hgb 29.8 pg (27.0-32.0); Mean Platelet Vol. 9.7 fl (6.2-12.0); Monocyte# 1.08 X10^3/uL; Monocyte% 6.8 % (0-10); NRBC Flagged by Analyzer 0 % (0-5); Neutrophil # 10.91 X10^3/uL (2.7-7.7); Neutrophil % 68.3 % (47-70); POSITIVE COUNT YES; RBC Distribution Width CV 13.4 % (11.6-14.6); RBC Distribution Width SD 43.8 fl (35.1-43.9)
[2022-07-10 10:41] LABS: Magnesium 2.2 mg/dL (1.6-2.6)
[2022-07-10 11:03] LABS: Differential Indicated SCAN CRITERIA MET
[2022-07-10 11:04] LABS: Platelet Estimate ADEQUATE (ADEQ)
--- NOTE | 2022-07-12 17:03 | HP.PCM_ITS ---
History and Physical Date of Admission: 07/12/22 Intake Vital Signs ? 02/12/2212:13 06/05/2213:30 06/05/2213:32 Height 5 ft 2 in 5 ft 2 in 5 ft 2 in Weight: ? 211 lb 8 oz ? BMI ? 38.7 ? BP ? 119/79 ? 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 Required: No Is patient in pain?: Yes Pain scale (1-10): 7 Allergies No Known Allergies Allergy (Verified 06/05/22 13:30) Medications pregabalin 150 mg capsule (Lyrica) 150 mg PO TID 06/18/21 [History Confirmed 06/05/22] citalopram 20 mg tablet (Celexa) 20 mg PO DAILY 06/05/22 [History Confirmed 05/13 12/31] cyclobenzaprine 10 mg tablet 10 mg PO TID PRN muscle spasm #30 tabs 06/05/22 [Rx Confirmed 06/05/22] doxycycline hyclate 100 mg capsule 100 mg PO BID #14 caps 06/05/22 [Rx Confirmed 06/05/22] lorazepam 0.5 mg tablet (Ativan) 0.5 mg PO DAILY PRN 06/05/22 [History Confirmed 06/05/22] metronidazole 1 % topical gel (Metrogel) 1 applic topical QHS #60 grams 06/05/22 [Rx Confirmed 06/05/22] oxycodone-acetaminophen 5 mg-325 mg tablet (Percocet) 1 tab PO Q8H PRN pain 3 days #9 tabs 06/05/22 [Rx Confirmed 06/05/22] Post menopausal: No Patient : No : No PFSH Medical History?(Updated 06/05/22 @ 14:54 by Ayse Tamez) Anxiety Depression Fibromyalgia H/O miscarriage, currently Migraine Obesity (BMI 30-39.9) Polysubstance (excluding opioids) dependence Thyroid nodule Uterine fibroid Surgical History? H/O adenoidectomy H/O dilation and curettage History of cholecystectomy History of tonsillectomy Family History? Mother Diabetes HypertensionFather Hypertension Social History?(Updated 06/05/22 @ 13:37 by Kaity Donis) household members:? family housing:? house current occupational status:? employed pets and animals:? Yes Smoking Status:? Current every day smoker tobacco type: cigarettes second hand exposure:? No alcohol intake:? never substance use type:? marijuana seatbelt use:? always do you feel safe at home:? Yes additional social history:? - Igor HPI discuss extreme cramping and uterine pain Details: NATALIO MARCIAL is a 32 year old G1, P1 ( section ) who presents for discussion about ongoing pelvic pain.? [place] [facility] [place] the complaint of acute on chronic pelvic pain CT was performed there and showed a 2.3 cm right ovarian cyst and the possibility of a degenerating fibroid uterus.? The CT noted that the uterus was enlarged but the actual dimensions were not given.? Patient has an IUD in place which was noted on the CT.? She denies any abnormal vaginal bleeding discharge fever chills nausea vomiting or diarrhea.? When asked if wanted the IUD removed she declined today.? Patient states that she just wants the IUD is left in place until she can have her uterus removed and is requesting a complete hysterectomy without bilateral salpingo-oophorectomy.? She states that she has 1 child that she is no longer interested in childbearing she states that she is 32 and never wanted to have children past 33. History ? ? ? 5 ? Elective abortions ? ? ? 2 Hx Para ? ? ? 1 ? Spontaneous abortions ? ? ? 2 Hx # Term Pregnancies ? Ectopic pregnancies ? Hx # Pregnancies ? Multiple births ? # of living children ? ? ? 1 Past Pregnancies Del. Date Name GA/Weeks Outcome Route Bth Weight Infant Gen Labor Lgth Anesthesia Del Locatn Provider FOB Unknown 01/13/2021 Bullvicky [place] 27 live - 2l bs 2oz Male ? spinal [place] ? ? Delivery Date:?? Last Updated by: Johana Ellis ? ? ? labor ROS Const ROS Unobtainable: All systems reviewed & are unremarkable except as noted in H Resp Resp: Reports system reviewed and no additional complaints, except as documented; Denies cough GI GI: Reports as per HPI Psych Psych: Reports system reviewed and no additional complaints, except as documented Exam Const General: cooperative, healthy appearing, comfortable and no acute distress Resp Effort & Inspection: normal respiratory effort General: bimanual renal exam normal bilaterally External Female Exam: normal appearance of the urethra Urethra: normal appearance of the urethra Speculum Exam - Vagina: normal appearance of the vagina Speculum Exam - Cervix: normal appearance of the cervix Bimanual Exam- Adnexa, other: normal adnexae, adnexae mobile, normal, tender on the right, No cul-de-sac tenderness and No cul-de-sac nodularity Recto-Vaginal: no cul-de-sac tenderness and no cul-de-sac nodularlity Pelvic Support: normal OB/External & Speculum: external exam normal and No vaginal discharge Speculum Exam: no vaginal discharge Skin General: no rashes or lesions noted Psych Appearance: grossly normal Speech and Movement: speech and movement normal Coding Level of Care Code Off vis,est,level 4 Diagnoses Ovarian cyst? N83.209 Uterine fibroid? D25.9 ? ? ? Uterine leiomyoma location: unspecified location Assessment and Plan Assessment and Plan (1) Ovarian cyst: ?Status:?Acute (2) Uterine fibroid: ?Status:?Acute ?Qualifiers: ?Uterine leiomyoma location:?unspecified location? Qualified Code(s):? D25.9 - Leiomyoma of uterus, unspecified ?Comment: Largest 3cm on US in February ?Plan: The plan at this time is to proceed with prior authorization for a total robotic hysterectomy bilateral salpingectomy and cystoscopy. After discussing the patient's diagnosis and treatment plan options, patient wishes to proceed with surgical management.? I have discussed with the patient the risks, benefits, and alternatives of the procedure which include but are not limited to risks of anesthesia, bleeding, infection, possible damage to bowel, bladder, or surrounding vasculature which could lead to additional surgery to evaluate any complications.? Patient agrees to procedure and wishes to proceed.? ACOG/uptodate references given for additional information regarding procedure.? Patient understands that this will make her completely unable to have children and she agrees that this would be okay.? Patient will need to sign a title 19 form prior to scheduling surgery due to her current insurance.? We will ask her to return to the office to sign this form ARMANDO. In the meantime I suspect that there could be a mild bacterial vaginosis infection that she will be treated with vaginal MetroGel.? There is also the suspicion of actinomyces that could grow on the IUD causing the pain and for that doxycycline 100 mg twice daily was also ordered the patient is requesting a 3-day supply of oxycodone to get some relief for the severe acute on chronic pain that she is experiencing I will send that to the pharmacy with 0 refills and also give her a muscle relaxer for some relief in the meantime while we wait for her paperwork to clear and get her to surgery. ? ? ? Orders: Orders Culture, Genital Comprehensive Today R10.2 - Pelvic and perineal pain ? Medications: New metronidazole 1% (Metrogel) 1 applic? topical QHS 60 grams 0RF ? ? doxycycline hyclate 100 mg? PO BID 14 caps 0RF ? ? oxycodone-acetaminophen 5-325 mg (Percocet) 1 TAB? PO Q8H 3 days PRN 9 tabs 0RF pain N83.209 - Unspecified ovarian cyst, unspecified side ? cyclobenzaprine 10 mg? PO TID PRN 30 tabs 0RF muscle spa sm ? ? 06/05/22 2335 <Electronically signed by Chari Lane DO> Date UPDATE- I have seen the patient and performed any clinically relevant updates to the history and physical exam. Since taking the treatment for BV and in pre- op testing she has developed an elevated wbc count of 16. She has been taking amoxicillin for a cough. will repeat white count the morning of surgery and if still elevated may postpone the procedure. Chari Lane, DO Chari Lane DO
[2022-07-13] VITALS (15 sets, daily range): BP systolic 105–135; BP diastolic 57–93; PULSE 75–108; RESP 16–22; TEMP 36.1–37.7; O2SAT 94–100; BMI 38.7; BMI 39.6
--- NOTE | 2022-07-13 | HYST_PTH ---
PATIENT: NATALIO MARCIAL LOC: [facility] U#:[id number] AGE/SX: 32/F ROOM: [facility] RE07/13/[address]: Dr. Chari Lane DO : 1990 BED: 1 DIS: 07/14/2022 SPEC #: [id number] RECD: 07/13/22 12:55 STATUS: JESSE ANIRUDH #: [id number] EMMIE: 07/13/22 00:[address]: Chari Lane DEPT: SURGICAL PATHOLOGY RECD BY: Scot Mendez ENTERED: 07/16/22 10:03 SP TYPE: HYSTERECT OTHR DR: Kwesi Hall, [employer]SEM[employer]Y SUPERVISOR-C Tissues: Uterus, NOS Procedures: Surgery Specimen Level V HEADER OPERATION: ERAS, laparoscopic robotic hysterectomy, bilateral salpingectomy PRE-OP DIAGNOSIS: Ovarian cyst, uterine fibroid TISSUE SUBMITTED: Uterus, cervix, bilateral fallopian tubes MICROSCOPIC DIAGNOSIS Uterus, hysterectomy: Cervix ? squamous metaplasia and chronic inflammation Endometrium ? weakly proliferative endometrium. Myometrium ? leiomyomas with degenerative and calcific change. Right fallopian tube - no pathologic change. Left fallopian tube - no pathologic change. AM:matty 07/17/2022 MICROSCOPIC DESCRIPTION Slides are reviewed. GROSS DESCRIPTION Received in fixative is one container labeled with the patient's name and designated uterus, cervix, bilateral fallopian tubes. The specimen consists of a hysterectomy specimen consisting of uterus with cervix and attached bilateral fallopian tubes. The uterus with cervix weighs 161 gm and measures 10.5 x 8 x 4.5 cm. Multiple subserosal nodules are identified. The serosal surface is french, glistening. The ectocervical mucosa is unremarkable. The external os is slit-like in contour. The endocervical canal measures 3.5 cm in length and the endocervical mucosa is french, glistening and unremarkable. The narrow endometrial cavity measures 3.5 cm in length and 0.7 cm in diameter. The endometrium is french, glistening without any mass lesion and measures <0.1 cm in thickness. Sections of the uterine wall reveal multiple intramural and subserosal nodular masses. The largest mass measures 4 cm in diameter. Sections of these masses reveal french whorled cut surfaces without areas of hemorrhage, necrosis or cystic degeneration. The uninvolved uterine wall measures up to 2.5 cm in thickness. The right fallopian tube measures 7 cm in length and 0.6 cm in diameter. The fimbrial end is identified. Sections reveal unremarkable cut surfaces. The left fallopian tube is similar appearance to right and measures 5.5 cm in length and 0.6 cm in diameter. [employer] sections are submitted in 11 cassettes as follows: 1??anterior cervix, 2 - posterior cervix, 3 & 4 - anterior uterine wall, 5 & 6 - posterior uterine wall, 7??largest nodular mass, 8 - second largest nodular mass, 9 - smaller nodular masses, 10 - right fallopian tube, 11 - left fallopian tube. / TEREZA:matty 07/16/2022 TC:1 CPT: 46475
[2022-07-13 06:15] LABS: Internal QC Validated? YES +Cl - CLEAR BKGD; Pregnancy, Urine Negative Negative
[2022-07-13] MEDS: Magnesium 1 GM over 15 mins IV (06:48)
[2022-07-13] MEDS: Lactated Ringers 1,000 ML 40 ML IV (06:50)
[2022-07-13 06:54] LABS: Absolute Lymphocyte Count 3.49 X10^3/uL (0.83-4.51); Absolute Neutrophil Count 7.5 X10^3/uL (2.0-7.7); Basophil# 0.11 X10^3/uL; Basophil% 0.9 % (0-1); Eosinophil# 0.28 X10^3/uL; Eosinophils% 2.3 % (0-5); Hematocrit 41.1 % (37-47); Hemoglobin 13.9 g/dL (12.0-15.0); Lymphocyte # 3.49 X10^3/ul (0.83-4.51); Lymphocyte % 28.5 % (19-41); Mean Corp Hgb Conc 33.8 g/dL (32-36); Mean Corpuscular Volume 88.6 fL (81-99); Mean Platelet Vol. 9.5 fl (6.2-12.0); Monocyte# 0.87 X10^3/uL; Monocyte% 7.1 % (0-10); NRBC Flagged by Analyzer 0 % (0-5); Neutrophil # 7.45 X10^3/uL (2.7-7.7); Neutrophil % 60.8 % (47-70); Platelet Count 355 K/mm3 (150-450); RBC Distribution Width CV 13.9 % (11.6-14.6); RBC Distribution Width SD 45.2 fl (35.1-43.9); Red Blood Count 4.64 M/mm3 (4.2-5.4); White Blood Count 12.3 K/mm3 (4.4-11.0)
[2022-07-13] MEDS: Acetaminophen 500 MG Tablet 1000 MG PO ×3 (07:05→17:57)
[2022-07-13] MEDS: Phenazopyridine 95 MG Tablet 190 MG PO (07:06)
[2022-07-13] MEDS: dexAMETHasone 10 MG/ML Vial 8 MG IV (07:06)
[2022-07-13] MEDS: Celecoxib 200 MG Capsule 400 MG PO (07:06)
[2022-07-13] MEDS: Gabapentin 600 MG Tablet PO (07:06)
[2022-07-13 07:55] LABS: Bedside Glucose 117 mg/dL (74-106)
--- NOTE | 2022-07-13 07:55 | DCINST_ITS ---
Discharge Instructions Diet Discharge Diet: No restrictions Activity Discharge Activity: Return to Normal Activity, May Not Drive (for two weeks or while taking narcotic pain medications.), May Shower and May Take a Tub Bath (in 7 days) May resume sexual activity in: 1 week Weight Bearing Status: Full weight bearing Dressing / Incision Call your doctor if you observe: Using more than 1 pad per hour, Shortness of breath, Chest pain and Uncontrolled pain Suture Line Care: Avoid Pulling/Pushing and Avoid Pinching/Bending Remove Dressing in: 1 week (if present) Cleanse incision/area with: Soap & Water and Keep Dressing Clean & Dry Follow Up Care Please Follow Up With: Chari Lane DO When: Call to make an appointment with your doctor for a follow up incision check in 1-2 weeks. Test Results: Test results from this visit will be discussed in further detail at your follow- up appointment, if applicable. Discharge Plan Admission Primary Reason for Your Visit: hysterectomy Attending Provider: Chari Lane Primary Care Provider: Kwesi Hall NP Instructions Patient Instructions: Hysterectomy Laparoscopic Recover Discharge Orders/Prescriptions Prescriptions: Continued lorazepam [Ativan] 0.5 mg tablet 0.5 mg PO DAILY PRN (Reason: Anxiety) cyclobenzaprine 10 mg tablet 10 mg PO TID PRN (Reason: muscle spasm) Qty: 30 0RF pregabalin [Lyrica] 150 mg Capsule 150 mg PO TID trazodone 50 mg Tablet 50 mg PO QHS Discontinued doxycycline hyclate 100 mg capsule 100 mg PO BID Qty: 14 0RF Rx Instructions: ATB STARTED PRE-OP FOR ELEVATED WBC Referrals / Follow Up: Kwesi Hall NP, HOME HEALTH CLINICAL SUPERVISOR-C [Primary Care Provider] - Disposition Disposition (needs filled in before D/C Order can be placed): Home, Self Care
[2022-07-13] MEDS: Cefazolin 2 GM in 0.9% Normal Saline 100 ML IV (08:04)
[2022-07-13] MEDS: Lubricating Jelly 60 GM Tube 30 GM (08:34)
[2022-07-13] MEDS: Ondansetron 4 MG/2 ML Vial IV (09:41)
[2022-07-13] MEDS: Bupivacaine 0.25% 30 ML Vial (09:46)
--- NOTE | 2022-07-13 10:01 | OP.PCM_ITS ---
Problems Associated Problem List Diagnoses (1) Uterine fibroid: (2) Fibromyalgia: (3) Depression: (4) Anxiety: (5) Obesity (BMI 30-39.9): Operative Report Date of Procedure: 07/13/22 Preoperative diagnosis: Large fibroid uterus, pelvic pain, suspect degenerating uterine fibroid Postoperative diagnosis: Large fibroid uterus, pelvic pain, suspect degenerating uterine fibroid Procedure: Total robotic hysterectomy bilateral salpingectomy and cystoscopy Anesthesia: General endotracheal intubation Estimated blood loss: 50cc Urine output:150cc Drains: None Implanted material: None Complications: None Findings: 12 cm size uterus containing 2 large fibroids in the right and left cornual regions measuring more than 5 cm each, normal appearing ovaries and tubes. On exploration of the abdominal cavity the uterus, adnexa, bowel, and liver were found to be normal. Cystoscopy showed no evidence of leaking at approximately 250 cc of normal saline, positive ureteral orifices and jet flow are seen and no suture material was appreciated in the bladder. Specimens removed: Uterus and cervix, Bilateral fallopian tubes Reason for surgery: This is a -year-old G 1, P1 who presented to my office with history of moderate pelvic pain and 2 large fibroids noted on CT from ER. The planned procedure is for a robotic hysterectomy the risks benefits and alternatives were discussed with the patient the patient had a clear understanding of the procedure and a consent form was signed. Procedure: The patient was placed in the dorsal low lithotomy position and prepped and draped in the normal sterile fashion both abdominally and in the perineum. Her legs were placed in stirrups a Salmon catheter was inserted into the urethra without difficulty. A weighted speculum was placed in the vagina and a single- tooth tenaculum was used to grasp the anterior lip of the cervix. A [employer] uterine manipulator was inserted through the cervix without complication. It was then tied into place at the 2 and 10:00 locations on the cervix. Gloves were changed and attention was turned towards the abdomen. Approximately 23 cm above the pubic symphysis in the midline, and after Marcaine injection, a 8 mm incision was made. An 8 mm trocar was inserted through the laparoscope, then inserted into the abdomen under direct visualization using the laparoscope. Good abdominal placement was noted and no complications were appreciated. An air seal device was utilized to create pneumoperitoneum. At 12 cm lateral to the midline on the left and right sides 8 mm accessory ports were placed. Next a left upper quadrant 8 mm assistant offset press operator port site was placed. The patient was placed in steep Trendelenburg position. The robot was docked. A small omental adhesion to the anterior abdominal wall was first cauterized and cut and removed to clear the view of the uterus. The hysterectomy was ini tiated first by taking down the round ligament on each side using the vessel sealer device. The fallopian tube on the right side was was elevated and the underlying mesosalpinx was cauterized and cut to the level of the cornua. the broad ligament was then and taken down using the vessel sealer device. Next the bladder flap was taken down without complication. This was done using monopolar cautery to the level of the cervical vaginal junction. After the bladder flap was created, uterine vessels were then isolated and cauterized using the vessel sealer device and EndoShears. At this point the uterine vessels were taken down further starting from the ascending branch, dissecting along the edges of the cervix to the level of the cervical vaginal junction with hemostasis appreciated. The cervical vaginal junction was then using monopolar cautery in a circumferential pattern across the superior aspect of the cervix. The specimen was delivered through the vagina and sent to pathology. The remaining vaginal cuff was then closed using OV lock suture. This was performed in a running technique. Excellent hemostasis was obtained and good closure was noted. Irrigation was then performed. All operative sites were noted to be hemostatic. A cystoscopy was performed with a 70 degree cystoscope through the urethra into the bladder without complication. The bladder was instilled with approximately 250 cc of normal saline. Intraoperative images were made. Ureteral orifices and jets were identified. No suture material was appreciated in the bladder. The bladder was then drained and cystoscope was removed. The abdominal cavity was again examined using the laparoscope after the robot was undocked. All operative sites were noted to be hemostatic. The trochars were removed under direct visualization without complication and pneumoperitoneum was reduced. At this point the skin was then closed using 4-0 Monocryl subcuticular stitch and sealed with surgical glue. The patient tolerated the procedure well sponge lap and needle counts were correct x2 the patient was taken to the recovery room in stable condition. Procedures Urinary/Genital 52xxx-59xxx: 06349 Cystoscopy Multi Select Codes Urinary/Genital Urinary/Genital CPT Codes: 37813 Cystoscopy and 76321 TLH+BS/O >250gr uterus
[2022-07-13] MEDS: oxyCODONE 5 MG Tablet 10 MG PO (11:50)
[2022-07-13] MEDS: Pregabalin 75 MG Capsule 150 MG PO ×2 (13:26→21:06)
[2022-07-13] MEDS: 0.9% Saline Lock 10 ML Syringe IV ×2 (14:30→21:07)
[2022-07-13] MEDS: Ketorolac 30 MG/ML Syringe IV ×2 (14:30→21:06)
[2022-07-13] MEDS: oxyCODONE 5 MG Tablet PO ×2 (15:45→19:52)
[2022-07-13] MEDS: traZODone 50 MG Tablet PO (21:06)
[2022-07-13] MEDS: Docusate Sodium 100 MG Capsule PO (21:06)
[2022-07-14] MEDS: oxyCODONE 5 MG Tablet PO ×4 (00:27→15:38)
[2022-07-14] MEDS: Acetaminophen 500 MG Tablet 1000 MG PO ×2 (00:27→13:59)
[2022-07-14 00:58] VITALS: BP 104/73; PULSE 61; RESP 16; TEMP 36.5; O2SAT 98
[2022-07-14] MEDS: Ketorolac 30 MG/ML Syringe IV ×2 (02:53→09:21)
[2022-07-14] MEDS: 0.9% Saline Lock 10 ML Syringe IV (02:53)
[2022-07-14 04:58] VITALS: BP 114/63; PULSE 87; RESP 16; TEMP 36.5; O2SAT 97
[2022-07-14] MEDS: Pregabalin 75 MG Capsule 150 MG PO ×2 (05:37→13:59)
[2022-07-14 07:28] LABS: Hematocrit 39.5 % (37-47); Hemoglobin 12.9 g/dL (12.0-15.0); Mean Corp Hgb Conc 32.7 g/dL (32-36); Mean Corpuscular Hgb 29.4 pg (27.0-32.0); Mean Platelet Vol. 10.1 fl (6.2-12.0); Platelet Count 330 K/mm3 (150-450); RBC Distribution Width CV 13.9 % (11.6-14.6); RBC Distribution Width SD 45.6 fl (35.1-43.9); Red Blood Count 4.39 M/mm3 (4.2-5.4); White Blood Count 24.7 K/mm3 (4.4-11.0)
[2022-07-14 07:37] VITALS: O2SAT 96
[2022-07-14 07:43] VITALS: BP 109/65; PULSE 61; RESP 16; TEMP 36.4; O2SAT 99
[2022-07-14] MEDS: Ensure Plus High Protein 120 ML LIQUID PO ×3 (07:53→17:06)
[2022-07-14] MEDS: Docusate Sodium 100 MG Capsule PO (09:19)
[2022-07-14] MEDS: Enoxaparin 40 MG/0.4 ML Syringe SC (09:19)
--- NOTE | 2022-07-14 09:49 | PCM.PN.OB ---
Subjective Subjective Patient is laying in bed comfortably without complaints. She states that she slept on an off during the night. vaginal bleeding is none and pain is fluctuating between mild and more severe. Asking for pain meds around the clock per nursing. I have explained to her that her white count doubled and she will need to stay longer for assessment and she is not happy with this news. Objective Data Objective Data Vital Signs: Vital Signs Temp Pulse Resp BP Pulse Ox O2 Del Method O2 Flow Rate 97.5 F L 61 16 109/65 99 Room Air 4 07/14/22 07:43 07/14/22 07:43 07/14/22 07:43 07/14/22 07:43 07/14/22 07:43 07/14/22 07:43 07/13/22 11:45 Oxygen Flow Rate (L/min) 4 Oxygen Delivery Method Room Air Weight: 217 lb 0.015 oz Body Mass Index (BMI) 39.6 Intake & Output: Intake and Output for Last 24 Hours 07/12/22 07/13/22 07/14/22 23:59 23:59 23:59 Intake Total 1613.67 / 1613.67 Output Total 400 / 400 Balance 1213.67 / 1213.67 Lab / Micro Data Result Diagrams: 07/14/22 07:10 Labs: Laboratory Results - last 24 hr 07/14/22 07:10: WBC 24.7 H, RBC 4.39, Hgb 12.9, Hct 39.5, MCV 90.0, MCH 29.4, MCHC 32.7, RDW Std Deviation 45.6 H, RDW Coeff of Anna 13.9, Plt Count 330, MPV 10.1 ROS Constitutional Constitutional: Reports systems reviewed and no addt'l complaints, except as documented Cardiovascular Cardiovascular: Denies chest pain, dizziness, dyspnea or irregular heart rhythm Respiratory/Chest Respiratory/Chest: Denies cough, pain on inspiration or shortness of breath at rest Gastrointestinal Gastrointestinal: Denies abdominal pain, nausea or vomiting Genitourinary Genitourinary: Denies burning urination Musculoskeletal Musculoskeletal: Denies muscle cramps, muscle spasms or muscle weakness Neurologic Neurologic: Denies confusion, dizziness, headache(s) or lack of coordination Psychiatric Psychiatric: Denies anxiety, behavioral changes or depression Physical Exam HEENT normocephalic Resp normal respiratory effort and normal air movement GI soft to palpation, non-tender and non-distended Rectal Exam: other Other Details: Incision is clean, dry, and intact no CVA tenderness Extremity normal to inspection General Extremity: edema bilateral (trace ) Assessment & Plan (1) Status post hysterectomy: COMMENT: uncomplicated robotic hysterectomy for large fibroid uterus PLAN: patient is s/p robotic hyst POD 1 1. routine ERAS protocol postop care- increase ambulation, encourage oral intake and oral control of pain. lovenox and scds for dvt prophylaxis. decrease tylenol to 1000 q 8 from q 6, saline lock, dc all IV pain meds. (2) Leukocytosis: PLAN: pt had a leukocytosis at her preop exam. repeat the am of surgery showed a decline from 16 to 12 and was afebrile. This am her white count is 24 repeat in 12 hours (6PM) and if trending down will dc to home otherwise may consult medicine for further investigation.
[2022-07-14 13:48] VITALS: BP 106/61; PULSE 71; RESP 16; TEMP 36.9; O2SAT 99
[2022-07-14 18:36] LABS: Hemoglobin 13.7 g/dL (12.0-15.0); Mean Corp Hgb Conc 33.4 g/dL (32-36); Mean Corpuscular Hgb 29.6 pg (27.0-32.0); Mean Corpuscular Volume 88.6 fL (81-99); Mean Platelet Vol. 10.2 fl (6.2-12.0); Platelet Count 167 K/mm3 (150-450); RBC Distribution Width SD 44.8 fl (35.1-43.9); Red Blood Count 4.63 M/mm3 (4.2-5.4); White Blood Count 16.5 K/mm3 (4.4-11.0)
== END 2022-07-14 19:40 | disposition home or self-care (01) ==
LOC: SDC 08:08 → MS3 08:08
PROVIDERS: Anesthesiology; Admitting Provider Obstetrics & Gynecology; PCP Nurse Practitioner Family; Referring Provider Obstetrics & Gynecology; Visit Provider Obstetrics & Gynecology
PROC: 0UT90ZZ Resection of Uterus, Open Approach (ICD-10-PCS; CPT 58571; principal; 2022-07-13 07:10)
DX: D25.9 Leiomyoma of uterus, unspecified (principal); F41.9 Anxiety disorder, unspecified; M79.7 Fibromyalgia; E66.9 Obesity, unspecified; Z79.899 Other long term (current) drug therapy; Z68.39 Body mass index [BMI] 39.0-39.9, adult; F32.A Depression, unspecified; F17.210 Nicotine dependence, cigarettes, uncomplicated; D72.829 Elevated white blood cell count, unspecified
CPT/HCPCS: 58571; S2900; 00840; 36415; 81025; 82962; 83735; 85025; 85027; 86850; 86900; 86901; 88307; 94762; 96372; 96374; 96376; 99218; J7120; A4216; G0378; J2405; J3475

== ENCOUNTER → 2022-07-27 | Outpatient (CLI) | payer MEDICAID, SELFPAY | END | disposition home or self-care (01) | PROVIDERS: Visit Provider Obstetrics & Gynecology | DX: L02.91 Cutaneous abscess, unspecified (principal) | CPT/HCPCS: 87070; 87077; 87186; 87205 ==

== ENCOUNTER → 2023-06-06 | Outpatient (CLI) | payer MEDICAID, SELFPAY ==
[2023-06-06 10:50] LABS: Absolute Lymphocyte Count 3.39 X10^3/uL (0.83-4.51); Absolute Neutrophil Count 4.8 X10^3/uL (2.0-7.7); Basophil# 0.09 X10^3/uL; Eosinophil# 0.11 X10^3/uL; Eosinophils% 1.2 % (0-5); Hematocrit 43.8 % (37-47); Hemoglobin 14.1 g/dL (12.0-15.0); Lymphocyte # 3.39 X10^3/ul (0.83-4.51); Lymphocyte % 37.9 % (19-41); Mean Corp Hgb Conc 32.2 g/dL (32-36); Mean Corpuscular Hgb 28.8 pg (27.0-32.0); Mean Corpuscular Volume 89.4 fL (81-99); Mean Platelet Vol. 10.4 fl (6.2-12.0); Monocyte# 0.53 X10^3/uL; Monocyte% 5.9 % (0-10); NRBC Flagged by Analyzer 0 % (0-5); Neutrophil # 4.78 X10^3/uL (2.7-7.7); Neutrophil % 53.4 % (47-70); Platelet Count 303 K/mm3 (150-450); RBC Distribution Width CV 13.2 % (11.6-14.6); RBC Distribution Width SD 43.3 fl (35.1-43.9)
[2023-06-06 11:09] LABS: Hemoglobin A1c 5.3 % (3.8-5.6)
[2023-06-06 11:13] LABS: AST(SGOT) 15 U/L (15-37); Alanine Aminotransfer ALT/SGPT 34 U/L (13-56); Albumin, Serum 3.4 g/dL (3.2-5.0); Alkaline Phosphatase 82 U/L (45-117); Anion Gap 4 (5-15); BUN 11 mg/dL (7-18); BUN/Creat Ratio 13.5 RATIO (10-20); Calcium,Total 8.2 mg/dL (8.5-10.1); Chloride 109 mmol/L (98-107); Cholesterol 178 mg/dL (200); Creatinine, Serum 0.82 mg/dL (0.55-1.02); EST Glomerular Filtration Rate 85 mL/min (>60); Est Glom Filt Rate - Afr Amer 103 mL/min (>60); Globulin 3.5 g/dL (2.2-4.2); Glucose 144 mg/dL (74-106); High Density Lipoprotein 34 mg/dL; Potassium 3.3 mmol/L (3.5-5.1); Protein, Total 6.9 g/dL (6.4-8.2); Sodium Level 139 mmol/L (136-145); Thyroid Stim Hormone (TSH) 1.29 uIU/mL (0.358-3.74); Triglycerides 344 mg/dL; Very Low Density Lipoprotein 69 mg/dL (5-40)
== END | disposition home or self-care (01) ==
LOC: MTLAB 09:07
PROVIDERS: PCP Family Medicine; Referring Provider Family Medicine; Visit Provider Family Medicine
DX: R00.2 Palpitations (principal)
CPT/HCPCS: 36415; 80053; 80061; 83036; 84443; 85025

== ENCOUNTER → 2023-06-14 | Outpatient (CLI) | payer MEDICAID, SELFPAY ==
[2023-06-14 13:41] LABS: ALB/GLOB Ratio 0.9 RATIO (0.9-2.4); AST(SGOT) 19 U/L (15-37); Alanine Aminotransfer ALT/SGPT 39 U/L (13-56); Albumin, Serum 3.4 g/dL (3.2-5.0); Alkaline Phosphatase 92 U/L (45-117); Anion Gap 7 (5-15); BUN 10 mg/dL (7-18); BUN/Creat Ratio 14.3 RATIO (10-20); Calcium,Total 8.3 mg/dL (8.5-10.1); Chloride 104 mmol/L (98-107); EST Glomerular Filtration Rate 101 mL/min (>60); Est Glom Filt Rate - Afr Amer 122 mL/min (>60); Globulin 3.8 g/dL (2.2-4.2); Glucose 85 mg/dL (74-106); Potassium 3.9 mmol/L (3.5-5.1); Protein, Total 7.2 g/dL (6.4-8.2); Sodium Level 135 mmol/L (136-145)
== END | disposition home or self-care (01) ==
LOC: MTLAB 10:35
PROVIDERS: PCP Family Medicine; Referring Provider Family Medicine; Visit Provider Family Medicine
DX: E87.6 Hypokalemia (principal)
CPT/HCPCS: 36415; 80053

== ENCOUNTER 2023-06-15 14:35 | Emergency (ER) | payer MEDICAID, SELFPAY ==
[2023-06-15 14:39] VITALS: BP 139/73; PULSE 88; RESP 22; TEMP 36.3; O2SAT 97; BMI 39.5
--- NOTE | 2023-06-15 15:03 | CT_ITS ---
INDICATION: dizziness EXAMINATION: CT BRAIN - CT Head or Brain W/O Contrast Injection TECHNIQUE: Multiple axial images were obtained of the head without intravenous contrast. A radiation dose optimization technique was used for this scan. IV Contrast dosage and agent: None. RADIATION DOSAGE (If Supplied By Facility): CTDIvol = ( 44.99 ) mGy, DLP = ( 796.11 ) mGycm COMPARISON: Prior study dated: 01/05/2015. FINDINGS: BRAIN PARENCHYMA: No intra- or extra-axial hemorrhage. No evidence of acute infarct. No intracranial mass or mass effect. There is preservation of the davies/white matter interface. Posterior fossa structures are unremarkable. CSF SPACES: Appropriate for age. No hydrocephalus. Basal cisterns are patent. CALVARIUM, SKULL BASE, PARANASAL SINUSES AND MASTOID AIR CELLS: Clear. No discrete lytic or blastic abnormalities. ORBITS: Both globes, extraocular muscles, optic nerves and retrobulbar fat appear unremarkable. CT/Brain/Head without Contrast IMPRESSION: No acute intracranial process. Electronically Signed: Papo Marley MD at 15:54 EDT ,
--- NOTE | 2023-06-15 15:11 | EX.ED.DYSGE1 ---
HPI <SHIRA Watkins - Last Filed: 06/15/23 17:19> History of Present Illness Chief Complaint: Dizziness Narrative Narrative: Patient is a 33-year-old female with history of fibromyalgia, migraine headaches, depression who presents to the emergency department with 2 weeks of dizziness which she describes as room spinning sensation. Patient states that this dizziness is making it difficult for her to perform her daily activities. She states she has vomited several times. She has seen her PCP 3 separate times for this, she was placed on multiple medications such as Phenergan, Zofran, meclizine. She is not receiving any relief. She presents today with worsening dizziness as well as pain to the right side of her head. She is here for reevaluation. This is her first ER visit for this symptom. PFS <SHIRA Watkins - Last Filed: 06/15/23 17:19> [facility] Medical History Acquired scoliosis Anxiety Depression Fibromyalgia H/O miscarriage, currently Marijuana use Migraine Migraine headache Obesity (BMI 30-39.9) Polysubstance (excluding opioids) dependence Smoker Substance abuse Thyroid nodule Uterine fibroid Wears glasses Home Medications pregabalin 150 mg capsule (Lyrica) 150 mg PO TID 06/18/21 [History Last Taken 07/13/22] cyclobenzaprine 10 mg tablet 10 mg PO TID PRN muscle spasm #30 tabs 06/05/22 [Rx Last Taken 07/12/22] lorazepam 0.5 mg tablet (Ativan) 0.5 mg PO DAILY PRN Anxiety 06/05/22 [History Last Taken 07/12/22] trazodone 50 mg tablet 50 mg PO QHS 07/04/22 [History Last Taken 07/12/22] nystatin 100,000 unit/gram topical cream 1 applic topical BID #30 grams 08/24/22 [Rx Last Taken Unknown] diazepam 5 mg tablet (Valium) 5 mg PO BID PRN muscle spasm #10 tabs 06/15/23 [Rx Last Taken Unknown] Allergy/AdvReac Type Severity Reaction Status Date / Time No Known Allergies Allergy Verified 06/15/23 14:38 Family History Mother Diabetes Hypertension Father Hypertension Surgical History H/O adenoidectomy H/O dilation and curettage History of cholecystectomy History of robot-assisted laparoscopic hysterectomy History of tonsillectomy Hx of hemorrhoidectomy Social History household members: family housing: house current occupational status: employed pets and animals: Yes Smoking Status: Current every day smoker tobacco type: cigarettes second hand exposure: No alcohol intake: never substance use type: marijuana seatbelt use: always do you feel safe at home: Yes additional social history: - Igor GLASS <SHIRA Watkins - Last Filed: 06/15/23 17:19> ROS ED ROS Narrative Constitutional: Negative for fever, chills, weight loss, weakness Eyes: Negative for vision loss, vision change, double vision. Complaining of photophobia. ENT: Negative for any sore throat, ear pain, congestion Cardiovascular: Negative for any chest pain, tightness, palpitations Respiratory: Negative for any cough, sputum production, hemoptysis, dyspnea, dyspnea on exertion, orthopnea Gastrointestinal: Negative for any abdominal pain, diarrhea, constipation, blood in stool, blood in vomit. Positive for nausea and vomiting : Negative for any urinary frequency, dysuria, retention, blood in urine Muscle skeletal: Negative for any muscle joint pain, stiffness, myalgias, arthralgias, neck pain, back pain Neurological: Negative for any syncope, numbness or tingling. Positive for feeling of dizziness, room spinning sensation, right-sided headache Skin: Negative for any rashes, lumps, itching, abrasions, lacerations Psychiatric: Negative for any depression, anxiety, stress, suicidal ideation, homicidal ideation Hematologic: Negative for any easy bruising, excessive bruising, easy bleeding Allergies: Negative for any eczema, hives, rash EXAM <SHIRA Watkins - Last Filed: 06/15/23 17:19> Physical Exam Narrative Exam Narrative: Vital signs reviewed. HEET: Head normocephalic atraumatic, TMs clear bilaterally. Posterior pharynx is clear, moist mucous membranes. Nares clear bilaterally. Pupils are equal round reactive to light. Perform EOMs, patient did have significant nystagmus worse on the left than the right. This is horizontal lasting 3 to 5 seconds. This did cause worsening of symptoms of dizziness feeling of nausea. Positive for photophobia Neck: Supple with no lymphadenopathy or tenderness. No signs of meningismus, negative jolt sign. Cardiac: Regular rate and rhythm no murmurs gallops or rubs, equal peripheral pulses bilaterally. Respiratory: Lungs clear to auscultation bilaterally. No chest tenderness. Abdomen: Soft, nontender, nondistended. No abdominal bruit or pulsatile masses. No hepatosplenomegaly Extremities: No peripheral edema, no signs of gross trauma or deformity. Active full range of motion of all extremities. Neuro: Cranial nerves II through XII intact, no focal neurological deficits. NIH stroke scale 0. Patient has no weakness, upper and lower extremities are unremarkable. Skin: Clean dry and intact with no rash, purpura, petechiae, vesicles or pustules. Backs/flank: No CVA tenderness, no midline spinal tenderness, no deformity. Psych: Normal mood and affect. No SI, HI or acute psychosis. Const Vital Signs: 06/15/23 14:39 06/15/23 17:28 Temperature 97.4 F L 16 F L Temperature Source Temporal Pulse Rate 88 Respiratory Rate 22 H Blood Pressure 139/73 H 90/64 Blood Pressure Mean 95 72 Pulse Ox 97 95 Oxygen Delivery Method Room Air Positive well nourished, well developed and obese General Appearance ED: well developed Nutritional Appearance: obese <Satya Mclaughlin MD - Last Filed: 06/15/23 18:21> Physical Exam Const Vital Signs: 06/15/23 14:39 06/15/23 17:28 Temperature 97.4 F L 16 F L Temperature Source Temporal Pulse Rate 88 Respiratory Rate 22 H Blood Pressure 139/73 H 90/64 Blood Pressure Mean 95 72 Pulse Ox 97 95 Oxygen Delivery Method Room Air MDM <SHIRA Watkins - Last Filed: 06/15/23 17:19> MDM Lab Data Labs: Laboratory Results - last 24 hr 06/15/23 06/15/23 15:13 15:20 WBC 15.7 H RBC 4.65 Hgb 13.5 Hct 41.7 MCV 89.7 MCH 29.0 MCHC 32.4 RDW Std Deviation 43.9 RDW Coeff of Anna 13.4 Plt Count 360 MPV 9.9 Immature Gran % (Auto) 0.400 Neut % (Auto) 59.0 Lymph % (Auto) 33.1 [place] % (Auto) 4.7 Eos % (Auto) 2.2 Baso % (Auto) 0.6 Absolute Neuts (auto) 9.3 H Absolute Lymphs (auto) 5.20 H Nucleated RBC % 0 Differential Comment SEE COMMENT Atypical Lymphocytes 1+ Platelet Estimate ADEQUATE RBC Morphology N CHROM Anisocytosis RARE Macrocytosis RARE Sodium 139 Potassium 3.7 Chloride 108 H Carbon Dioxide 26.0 Anion Gap 5 BUN 12 Creatinine 0.79 Estim Creat Clear Calc 78.61 Est GFR (MDRD) Af Amer 106 Est GFR (MDRD) Non-Af 88 BUN/Creatinine Ratio 15.1 Glucose 114 H Calcium 8.5 Urine Color Yellow Urine Clarity Clear Urine pH 7.0 Ur Specific [place] 1.005 Urine Protein 15 H Urine Glucose (UA) Normal Urine Ketones Negative Urine Occult Blood Negative Urine Nitrite Negative Urine Bilirubin Negative Urine Urobilinogen Normal Ur Leukocyte Esterase Negative Urine RBC 0 SEEN Urine WBC 0 SEEN Ur Squamous Epith Cells 0 SEEN Urine Bacteria 0 SEEN Urine Mucus 0 SEEN Radiography Diagnostic Testing: Clinical Impression(s) from Imaging Studies Brain CT 06/15/23 15:03 IMPRESSION: No acute intracranial process. Electronically Signed: Papo Marley MD at 15:54 EDT , Treatment and Re-Evaluation :: Patient arrives in mild distress secondary to nausea, vomiting, overall dizziness. Patient also complains to the emergency department with right-sided headache. Vital signs are stable. Patient does appear nontoxic, no meningeal signs. Differential diagnosis includes benign positional vertigo, central vertigo, migraine headache, subarachnoid hemorrhage. Patient's neurological exam was unremarkable. She did show some signs of nystagmus, patient will be treated for benign positional vertigo, patient be treated with oral Valium. Patient will receive a CT scan of the brain, this is secondary to the patient having symptoms greater than 2 weeks, getting worse. Patient will receive IV fluids. She will be reevaluated after the oral Valium. Patient on reevaluation states that her headache and dizziness is still there. Patient's laboratory values showed a normal chemistries, patient CBC did show slight leukocytosis white blood count 15.7, looking at the patient's past, patient does have history of leukocytosis. Patient CT scan of the brain showed no acute intracranial process. Patient's urinalysis was negative for any process. At this time, secondary the patient's headache, patient will receive a migraine cocktail which is Toradol, Reglan, Benadryl. She will be reassessed Patient after migraine cocktail did feel better. Patient states that she feels well enough to go home. She will be given a couple days of Valium for her vertiginous symptoms. She is instructed to follow-up with her PCP. At this time, there is no evidence of any subarachnoid hemorrhage, patient improved with migraine cocktail. At this time, patient stable for discharge. Return for worsening symptoms. <Satya Mclaughlin MD - Last Filed: 06/15/23 18:21> [facility] MDM Narrative Medical decision making narrative: Dr. Mclaughlin: I have personally performed a face to face assessment of the patient and have reviewed the BALDEMAR Note. I performed a substantive portion of the visit including all aspects of the following. My cruz findings include: History is dizziness x2 weeks, already tried multiple medications. Headaches. Exam is afebrile. Vital signs noted. Regular rate and rhythm. Lungs clear to auscultation bilaterally, abdomen soft and nontender. Neurological examination nonfocal and nonlateralizing. Medical Decision Making: Given that the patient has not had imaging previously, check CT. Check labs. Valium. Migraine cocktail. Showed improvement in headache. Discharge with follow-up, may need ENT or neurology referral. Other additions or changes: [None] Lab Data Labs: Laboratory Results - last 24 hr 06/15/23 06/15/23 15:13 15:20 WBC 15.7 H RBC 4.65 Hgb 13.5 Hct 41.7 MCV 89.7 MCH 29.0 MCHC 32.4 RDW Std Deviation 43.9 RDW Coeff of Anna 13.4 Plt Count 360 MPV 9.9 Immature Gran % (Auto) 0.400 Neut % (Auto) 59.0 Lymph % (Auto) 33.1 [place] % (Auto) 4.7 Eos % (Auto) 2.2 Baso % (Auto) 0.6 Absolute Neuts (auto) 9.3 H Absolute Lymphs (auto) 5.20 H Nucleated RBC % 0 Differential Comment SEE COMMENT Atypical Lymphocytes 1+ Platelet Estimate ADEQUATE RBC Morphology N CHROM Anisocytosis RARE Macrocytosis RARE Sodium 139 Potassium 3.7 Chloride 108 H Carbon Dioxide 26.0 Anion Gap 5 BUN 12 Creatinine 0.79 Estim Creat Clear Calc 78.61 Est GFR (MDRD) Af Amer 106 Est GFR (MDRD) Non-Af 88 BUN/Creatinine Ratio 15.1 Glucose 114 H Calcium 8.5 Urine Color Yellow Urine Clarity Clear Urine pH 7.0 Ur Specific [place] 1.005 Urine Protein 15 H Urine Glucose (UA) Normal Urine Ketones Negative Urine Occult Blood Negative Urine Nitrite Negative Urine Bilirubin Negative Urine Urobilinogen Normal Ur Leukocyte Esterase Negative Urine RBC 0 SEEN Urine WBC 0 SEEN Ur Squamous Epith Cells 0 SEEN Urine Bacteria 0 SEEN Urine Mucus 0 SEEN Radiography Diagnostic Testing: Clinical Impression(s) from Imaging Studies Brain CT 06/15/23 15:03 IMPRESSION: No acute intracranial process. Electronically Signed: Papo Marley MD at 15:54 EDT , Discharge Plan Triage Chief Complaint: Dizziness ED Midlevel Provider: Callum Martinez ED Provider: Satya Mclaughlin Dx/Rx/DC Orders Clinical Impression: Migraine, Vertigo Instructions: ED, Migraine (Classical), ED Vertigo, Unspecified Prescriptions: New diazepam [Valium] 5 mg tablet 5 mg PO BID PRN (Reason: muscle spasm) Qty: 10 0RF Rx Instructions: Please take for vertiginous symptoms. You may not drive a car, work, drink alcohol. No Action lorazepam [Ativan] 0.5 mg tablet 0.5 mg PO DAILY PRN (Reason: Anxiety) cyclobenzaprine 10 mg tablet 10 mg PO TID PRN (Reason: muscle spasm) Qty: 30 0RF nystatin 100,000 unit/gram cream 1 applic topical BID Qty: 30 1RF pregabalin [Lyrica] 150 mg Capsule 150 mg PO TID trazodone 50 mg Tablet 50 mg PO QHS Primary Care Provider: Darcy Maria Referrals: Darcy Maria MD [Primary Care Provider] - Activity Restrictions/Additional Instructions: Please follow-up, do not take the lorazepam with the Valium. Use the Valium for your vertigo. Disposition Disposition: Home, Self Care Discharge Date/Time: 06/15/23 17:31
[2023-06-15] MEDS: 0.9% Normal Saline (1000mL) 1,000 ML 1000 ML IV (15:19)
[2023-06-15] MEDS: diazePAM 5 MG Tablet PO (15:19)
[2023-06-15] MEDS: Ondansetron 4 MG/2 ML Vial IV (15:19)
[2023-06-15 15:21] LABS: Absolute Neutrophil Count 9.3 X10^3/uL (2.0-7.7); Basophil# 0.09 X10^3/uL; Basophil% 0.6 % (0-1); Eosinophil# 0.34 X10^3/uL; Eosinophils% 2.2 % (0-5); Hematocrit 41.7 % (37-47); Hemoglobin 13.5 g/dL (12.0-15.0); Lymphocyte % 33.1 % (19-41); Mean Corp Hgb Conc 32.4 g/dL (32-36); Mean Corpuscular Volume 89.7 fL (81-99); Mean Platelet Vol. 9.9 fl (6.2-12.0); Monocyte# 0.74 X10^3/uL; Monocyte% 4.7 % (0-10); NRBC Flagged by Analyzer 0 % (0-5); Neutrophil # 9.29 X10^3/uL (2.7-7.7); POSITIVE DIFFERENTIAL YES; Platelet Count 360 K/mm3 (150-450); RBC Distribution Width CV 13.4 % (11.6-14.6); RBC Distribution Width SD 43.9 fl (35.1-43.9); Red Blood Count 4.65 M/mm3 (4.2-5.4); White Blood Count 15.7 K/mm3 (4.4-11.0)
[2023-06-15 15:27] LABS: Bacteria 0 SEEN /hpf (None Seen); Mucous, Urine 0 SEEN /hpf (<or=2+); Red Blood Cells-Urine 0 SEEN /hpf (0-5); Squamous Epithelial Cells - UA 0 SEEN /hpf (5-10); White Blood Cells 0 SEEN /hpf (0-5)
[2023-06-15 15:37] LABS: Color, Urine Yellow (Yellow); Glucose, Dipstick Normal (Normal); Ketone-Dipstick Negative (Negative); Leukocyte Esterase-Dipstick Negative /ul (Negative); Nitrite-Dipstick Negative (Negative); Occult Blood-Urine Negative /ul (Negative); Protein-Dipstick 15 mg/dl (Negative); Specific Gravity, Urine 1.005 (1.002-1.030); Urine Bilirubin Dipstick Negative (Negative); Urine Clarity Clear (Clear); Urine Urobilinogen Normal (Normal)
[2023-06-15 15:37] LABS: Anion Gap 5 (5-15); BUN 12 mg/dL (7-18); BUN/Creat Ratio 15.1 RATIO (10-20); Calcium,Total 8.5 mg/dL (8.5-10.1); Chloride 108 mmol/L (98-107); Creatinine, Serum 0.79 mg/dL (0.55-1.02); EST Glomerular Filtration Rate 88 mL/min (>60); Est Glom Filt Rate - Afr Amer 106 mL/min (>60); Estimated Creatinine Clearance 78.61 ml/min; Glucose 114 mg/dL (74-106); Potassium 3.7 mmol/L (3.5-5.1); Sodium Level 139 mmol/L (136-145)
[2023-06-15 15:45] LABS: Differential Indicated SCAN CRITERIA MET
[2023-06-15 15:46] LABS: Anisocytosis RARE; Atypical Lymphocyte 1+ %; Macrocytosis RARE; Platelet Estimate ADEQUATE (ADEQ); Red Cell Morphology N CHROM NORMAL (NORM C&C)
[2023-06-15] MEDS: DiphenhydrAMINE 50 MG/ML Syringe 25 MG IV (16:15)
[2023-06-15] MEDS: Ketorolac 15 MG/ML Vial IV (16:16)
[2023-06-15] MEDS: Metoclopramide 10 MG/2 ML Vial IV (16:17)
[2023-06-15 17:28] VITALS: BP 90/64; TEMP -8.8; TEMP 16; O2SAT 95
== END 2023-06-15 17:31 | disposition home or self-care (01) ==
PROVIDERS: Nurse Practitioner; Emergency Provider Emergency Medicine; PCP Family Medicine; Visit Provider Emergency Medicine
DX: G43.909 Migraine, unspecified, not intractable, without status migrainosus (principal); R42 Dizziness and giddiness; F32.A Depression, unspecified; E66.9 Obesity, unspecified
CPT/HCPCS: 70450; 80048; 81001; 85025; 96361; 96374; 96375; 99283; J7030; A4216; J2405

== ENCOUNTER → 2023-06-26 | Outpatient (CLI) | payer MEDICAID, SELFPAY ==
--- NOTE | 2023-06-26 06:43 | MRI_ITS ---
EXAM: MR HEAD WITHOUT INTRAVENOUS CONTRAST CLINICAL INDICATION: left sided motor weakness TECHNIQUE: Multiplanar and multisequence MR images of the brain were obtained without intravenous contrast. COMPARISON: CT head without contrast 06/15/2023. FINDINGS: BRAIN AND EXTRA-AXIAL SPACES: Unremarkable. No intra- or extra-axial hemorrhage. No evidence of acute infarct. No intracranial mass or mass effect. There is preservation of the davies/white matter interface. Posterior fossa structures are unremarkable. Ventricles are appropriate for age. No hydrocephalus. Basal cisterns are patent. SELLA: Unremarkable. Normal sella turcica, pituitary gland, infundibular stalk, optic chiasm and hypothalamus. AUDITORY SYSTEM: Unremarkable. The internal auditory canals are patent. BONES/JOINTS: Unremarkable. No discrete lytic or blastic abnormalities. SINUSES: Unremarkable as visualized. Clear. MASTOID AIR CELLS: Unremarkable as visualized. Clear. ORBITS: Unremarkable as visualized. Both globes, extraocular muscles, optic nerves and retrobulbar fat appear unremarkable. VASCULATURE: Unremarkable as visualized. Normal flow voids in the major intracranial circulation. MRI/Brain without Contrast IMPRESSION: Normal MRI brain without intravenous contrast. Electronically Signed: Satya Cantu MD at 8:40 EST ,
== END | disposition home or self-care (01) ==
LOC: MRI 06:36
PROVIDERS: PCP Family Medicine; Referring Provider Family Medicine; Visit Provider Family Medicine
DX: M62.81 Muscle weakness (generalized) (principal)
CPT/HCPCS: 70551

== ENCOUNTER → 2023-07-19 | Outpatient (CLI) | payer MEDICAID, SELFPAY ==
--- NOTE | 2023-07-19 13:08 | RAD_ITS ---
STUDY: X-RAY - RIGHT KNEE REASON FOR EXAM: Female, 33 years old. Knee pain TECHNIQUE: 4 view(s) of the knee. COMPARISON: None. FINDINGS: Normal visualized distal femur. Normal visualized proximal tibia and fibula. Normal proximal tibiofibular articulation. Normal medial femorotibial compartment. Normal lateral femorotibial compartment. Normal patellofemoral articulation. The soft tissue structures are unremarkable. RAD/Knee 4 or More Views IMPRESSION: Normal x-ray examination of the knee. Electronically Signed: Brown Garner MD at 17:47 EST ,
--- NOTE | 2023-07-19 13:08 | RAD_ITS ---
STUDY: X-RAY - LEFT KNEE REASON FOR EXAM: Female, 33 years old. Knee pain TECHNIQUE: 4 view(s) of the knee. COMPARISON: None. FINDINGS: Normal visualized distal femur. Normal visualized proximal tibia and fibula. Normal proximal tibiofibular articulation. Normal medial femorotibial compartment. Normal lateral femorotibial compartment. Normal patellofemoral articulation. The soft tissue structures are unremarkable. RAD/Knee 4 or More Views IMPRESSION: Normal x-ray examination of the knee. Electronically Signed: Brown Garner MD at 17:46 EST ,
== END | disposition home or self-care (01) ==
LOC: MTLAB 12:38 → MTRAD 13:07
PROVIDERS: PCP Family Medicine; Referring Provider Family Medicine; Visit Provider Family Medicine
DX: M22.42 Chondromalacia patellae, left knee (principal); M22.41 Chondromalacia patellae, right knee
CPT/HCPCS: 73564

== ENCOUNTER 2023-10-24 12:22 | Emergency (ER) | payer MEDICAID, SELFPAY ==
[2023-10-24 12:23] VITALS: BP 158/83; PULSE 103; RESP 14; TEMP 36.8; O2SAT 98; BMI 40.4
--- NOTE | 2023-10-24 13:13 | CT_ITS ---
STUDY: CT ABDOMEN AND PELVIS WITH CONTRAST REASON FOR EXAM: Female, 33 years old. RLQ pain RADIATION DOSAGE (If Supplied By Facility): CTDIvol = ( 15.53 ) mGy, DLP = ( 1035.38 ) mGycm TECHNIQUE: Transaxial images were obtained from the dome of the diaphragm to the symphysis pubis without oral contrast. IV 100mL [id number]-300 was administered. Sagittal and coronal images were reconstructed. Individualized dose optimization techniques were used for this CT. COMPARISON: Comparison is made with prior examination dated October 04, 2021. FINDINGS: Focal scarring in the anterior aspect of the left lower lobe. The visualized portions of the heart are within normal limits. There is decreased attenuation of the liver consistent with steatosis. The patient is status post cholecystectomy. Normal spleen. Normal pancreas. Normal bilateral adrenal glands. Normal right kidney. Normal left kidney. A left-sided retroaortic renal vein is seen. Normal visualized stomach. Normal small intestine. Normal colon. The appendix is visualized and appears normal. Normal abdominal aorta. Normal inferior vena cava. Normal retroperitoneum. Normal urinary bladder. There is absence of the uterus consistent with a prior hysterectomy. Small follicles are seen in the right ovary. Small bilateral inguinal hernias containing fat. Straightening of the normal lumbar lordosis. CT/Abdomen/Pelvis W IV Cont ONLY IMPRESSION: Fatty infiltration of the liver. Status post cholecystectomy and hysterectomy. Electronically Signed: Félix Evans MD at 14:25 EDT ,
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
[2023-10-24] MEDS: 0.9% Normal Saline (1000mL) 1,000 ML 1000 ML IV (13:30)
[2023-10-24] MEDS: Ketorolac 15 MG/ML Vial IV (13:30)
[2023-10-24] MEDS: Ondansetron 4 MG/2 ML Vial IV (13:30)
[2023-10-24 13:35] LABS: Absolute Lymphocyte Count 1.82 X10^3/uL (0.83-4.51); Absolute Neutrophil Count 12.5 X10^3/uL (2.0-7.7); Basophil# 0.05 X10^3/uL; Basophil% 0.3 % (0-1); Hematocrit 42.8 % (37-47); Hemoglobin 14.2 g/dL (12.0-15.0); Lymphocyte # 1.82 X10^3/ul (0.83-4.51); Lymphocyte % 12.4 % (19-41); Mean Corp Hgb Conc 33.2 g/dL (32-36); Mean Corpuscular Hgb 29.5 pg (27.0-32.0); Mean Corpuscular Volume 88.8 fL (81-99); Mean Platelet Vol. 9.9 fl (6.2-12.0); Monocyte# 0.15 X10^3/uL; NRBC Flagged by Analyzer 0 % (0-5); Neutrophil # 12.51 X10^3/uL (2.7-7.7); Neutrophil % 85.7 % (47-70); Platelet Count 370 K/mm3 (150-450); RBC Distribution Width CV 13.5 % (11.6-14.6); RBC Distribution Width SD 43.8 fl (35.1-43.9); Red Blood Count 4.82 M/mm3 (4.2-5.4); White Blood Count 14.6 K/mm3 (4.4-11.0)
[2023-10-24 13:45] LABS: Bacteria 0 SEEN /hpf (None Seen); Mucous, Urine 0 SEEN /hpf (<or=2+); Red Blood Cells-Urine 0 SEEN /hpf (0-5); White Blood Cells 0 SEEN /hpf (0-5)
[2023-10-24 13:47] LABS: Color, Urine Yellow (Yellow); Glucose, Dipstick 1000 mg/dl (Normal); Ketone-Dipstick 5 mg/dl (Negative); Leukocyte Esterase-Dipstick 25 /ul (Negative); Nitrite-Dipstick Negative (Negative); Occult Blood-Urine 10 /ul (Negative); Protein-Dipstick Negative (Negative); Urine Bilirubin Dipstick Negative (Negative); Urine Clarity Clear (Clear); Urine Urobilinogen Normal (Normal); Urine pH 6.5 (5.0 - 8.0)
[2023-10-24 13:50] LABS: ALB/GLOB Ratio 0.8 RATIO (0.9-2.4); AST(SGOT) 19 U/L (15-37); Alanine Aminotransfer ALT/SGPT 37 U/L (13-56); Albumin, Serum 3.6 g/dL (3.2-5.0); Alkaline Phosphatase 98 U/L (45-117); Anion Gap 10 (5-15); BUN 14 mg/dL (7-18); BUN/Creat Ratio 13.5 RATIO (10-20); Calcium,Total 8.7 mg/dL (8.5-10.1); Chloride 105 mmol/L (98-107); Creatinine, Serum 1.04 mg/dL (0.55-1.02); EST Glomerular Filtration Rate 64 mL/min (>60); Est Glom Filt Rate - Afr Amer 77 mL/min (>60); Estimated Creatinine Clearance 83.65 ml/min; Globulin 4.4 g/dL (2.2-4.2); Glucose 290 mg/dL (74-106); Lipase 38 U/L (13-75); Potassium 3.7 mmol/L (3.5-5.1); Sodium Level 138 mmol/L (136-145)
[2023-10-24 14:01] LABS: Squamous Epithelial Cells - UA 0-5 SEEN /hpf (5-10)
[2023-10-24 14:22] VITALS: BP 110/77; PULSE 107; RESP 22; O2SAT 97
[2023-10-24] MEDS: Morphine 4 MG/ML Syringe IV (14:39)
[2023-10-24 15:53] VITALS: BP 115/87; PULSE 99; RESP 16; TEMP 36.6; O2SAT 97
== END 2023-10-24 15:54 | disposition home or self-care (01) ==
PROVIDERS: Physician Assistant; Emergency Provider Emergency Medicine; PCP Family Medicine; Visit Provider Emergency Medicine
DX: R11.2 Nausea with vomiting, unspecified (principal); R10.31 Right lower quadrant pain; F12.90 Cannabis use, unspecified, uncomplicated; Z87.891 Personal history of nicotine dependence
CPT/HCPCS: 74177; 80053; 81001; 83690; 85025; 96361; 96374; 96375; 99283; J7030; Q9967; A4216; J2405

== ENCOUNTER 2023-11-10 20:57 | Emergency (ER) | payer MEDICAID, SELFPAY ==
[2023-11-10 21:02] VITALS: BP 141/108; PULSE 108; RESP 24; TEMP 36.1; O2SAT 100; O2SAT 98; BMI 41.1
[2023-11-10] MEDS: Ketorolac 30 MG/ML Syringe IV (22:23)
[2023-11-10] MEDS: DiphenhydrAMINE 50 MG/ML Syringe IV (22:23)
[2023-11-10] MEDS: Metoclopramide 10 MG/2 ML Vial IV (22:23)
[2023-11-10] MEDS: Orphenadrine 60 MG/2 ML Ampul IV (22:23)
--- NOTE | 2023-11-10 23:15 | EDS_ITS ---
HPI History of Present Illness Chief Complaint: Headache Informant: patient and family Narrative Narrative: Patient is a 33-year-old female with past medical history of anxiety and depression as well as fibromyalgia and remote history of migraine headache. She states she went to bed normally last night and awoke this morning and noticed a frontal headache. She states that she tried Tylenol and Motrin and as time progressed throughout the day the headache began to increase as well. She denies any recent trauma or sick symptoms. She does report sensitivity to light and sound and states this does feel overall similar nature to her previous headache. As the headache has been persistent without resolution with [id number] medication she presents for evaluation [facility] Medical History Acquired scoliosis Anxiety Depression Fibromyalgia H/O miscarriage, currently Left knee pain Marijuana use Migraine Migraine headache Obesity (BMI 30-39.9) Polysubstance (excluding opioids) dependence Right knee pain Smoker Substance abuse Thyroid nodule Uterine fibroid Wears glasses Home Medications pregabalin 150 mg capsule (Lyrica) 150 mg PO TID 06/18/21 [History Last Taken 07/13/22] lorazepam 0.5 mg tablet (Ativan) 0.5 mg PO DAILY PRN Anxiety 06/05/22 [History Last Taken 07/12/22] bupropion HCl 150 mg tablet,12 hr sustained-release 150 mg PO 07/29/23 [History Last Taken Unknown] trazodone 150 mg tablet 150 mg PO DAILY 11/06/23 [History Last Taken Unknown] Allergy/AdvReac Type Severity Reaction Status Date / Time tramadol Allergy Itching Verified 11/10/23 21:02 Family History Mother Diabetes Hypertension Father Hypertension Surgical History H/O adenoidectomy H/O dilation and curettage History of cholecystectomy History of robot-assisted laparoscopic hysterectomy History of tonsillectomy Hx of hemorrhoidectomy Social History household members: family housing: house current occupational status: employed pets and animals: Yes Smoking Status: Unknown if ever smoked second hand exposure: No alcohol intake: never substance use type: marijuana seatbelt use: always do you feel safe at home: Yes additional social history: - Igor GLASS ROS ED Constitutional Constitutional ED: Denies chills or fever(s) Eyes Eyes: Reports other Details: Positive photophobia ENT ENT ED: Denies ear pain, rhinorrhea or sore throat Cardiovascular Cardiovascular: Denies chest pain Respiratory/Chest Respiratory/Chest: Denies cough or dyspnea Gastrointestinal Gastrointestinal: Reports nausea; Denies abdominal pain, diarrhea or vomiting Genitourinary Genitourinary ED: Denies dysuria Musculoskeletal Musculoskeletal: Denies neck pain Integumentary Denies rash Neurologic Neurologic: Reports headache(s); Denies paresthesias or weakness Hematologic/Lymphatic Hematologic/Lymphatic: Denies easy bleeding or easy bruising EXAM Physical Exam Const Vital Signs: 11/10/23 21:02 11/10/23 21:02 11/10/23 23:24 Temperature 97 F L 97 F L Temperature Source Temporal Pulse Rate 108 H 108 H 108 H Respiratory Rate 24 H 24 H 24 H Blood Pressure 141/108 H 141/108 H 141/108 H Blood Pressure Mean 119 119 119 Pulse Ox 98 100 100 Oxygen Delivery Method Room Air Room Air Positive well nourished, well developed and obese General Appearance ED: well developed; Negative for pallor Nutritional Appearance: obese HEENT HEENT Narrative: Normocephalic atraumatic Tenderness palpation along the right frontal scalp. No secondary changes to suggest infectious process Eyes PERRL and EOMs intact bilaterally General Eye ED: Negative for scleral icterus Neck supple Neck Narrative: No nuchal rigidity or meningeal signs noted Resp normal respiratory effort and clear to auscultation bilaterally Cardio regular rate and regular rhythm Extremity normal to inspection Neuro oriented x3, CN's II-XII intact bilaterally and no sensory deficits noted Neuro Narrative: Cranial nerves II through XII are grossly intact without focal neurologic deficit No pronator drift no dysmetria no truncal ataxia NIH stroke scale score of 0 Sensorium / Orientation: alert Motor Exam: strength 5/5 throughout Psych mental status grossly normal Skin no rashes or lesions noted and no wounds General Skin Exam: Negative for jaundice or pallor MDM MDM MDM Narrative Medical decision making narrative: Patient arrived to the ER hypertensive otherwise afebrile. She reported a remote history of headache and states his headache came on gradually and increased over the course of hours and felt similar nature to her previous migraines. She denied any trauma or recent sick symptoms. Differential diagnosis is through breakthrough/intractable migraine versus headache from infectious process such as COVID or influenza versus headache secondary to shingles versus meningitis. Meningitis is low on differential as she is afebrile with no nuchal rigidity. Shingles/skin infection as well as a course of headache as there is no overlying soft tissue changes. As patient does not have pain along the temporal artery concern for temporal arteritis is low as well. Patient denies sick symptoms I do not feel the need to check a viral swab and as patient is not on a blood thinner nor has had any recent trauma concern for underlying skull fracture or brain bleed is low and I do not feel there is need for CT scan. Patient was given IV fluids Toradol Benadryl Reglan and Norflex and had resolution of her headache. On reevaluation her neurologic exam remains normal and therefore she otherwise safe for discharge History & Record Review Discussion w/independent historian: Patient and Family Discharge Plan Triage Chief Complaint: Headache ED Provider: Mkio Marrufo Dx/Rx/DC Orders Clinical Impression: Cephalgia, Anxiety, Depression, Fibromyalgia Instructions: ED, Migraine (Classical) Prescriptions: No Action lorazepam [Ativan] 0.5 mg tablet 0.5 mg PO DAILY PRN (Reason: Anxiety) bupropion HCl 150 mg tablet sustained-release 12 hr 150 mg PO Patient Comments: TAKE 1 TABLET BY MOUTH 2 TIMES A DAY trazodone 150 mg tablet 150 mg PO DAILY pregabalin [Lyrica] 150 mg Capsule 150 mg PO TID Primary Care Provider: Darcy Maria Referrals: Darcy Maria MD [Primary Care Provider] - Disposition Disposition: Home, Self Care Discharge Date/Time: 11/10/23 23:25
[2023-11-10 23:24] VITALS: BP 141/108; PULSE 108; RESP 24; TEMP 36.1; O2SAT 100
== END 2023-11-10 23:25 | disposition home or self-care (01) ==
PROVIDERS: Emergency Provider Emergency Medicine; PCP Family Medicine; Visit Provider Emergency Medicine
DX: R51.9 Headache, unspecified (principal); F41.9 Anxiety disorder, unspecified; F32.A Depression, unspecified; M79.7 Fibromyalgia; Z79.899 Other long term (current) drug therapy; E66.9 Obesity, unspecified
CPT/HCPCS: 96374; 96375; 99283; J7030; A4216

== ENCOUNTER 2024-07-12 12:30 | Emergency (ER) | payer MEDICAID, SELFPAY ==
[2024-07-12 12:30] VITALS: BP 167/142; PULSE 134; RESP 18; TEMP 36.6; O2SAT 97; BMI 44.0
--- NOTE | 2024-07-12 13:05 | EDS_ITS ---
HPI <RODRIGUEZ Mckee - Last Filed: 07/12/24 14:16> History of Present Illness Chief Complaint: Back Narrative Narrative: Patient presenting today with mid back pain she has had since Saturday. She reports a history of chronic mid back pain, she reports that she has exacerbation about every other month. Her flare today feels similar to previous flares. She usually sees her PCP for this and they prescribe her a muscle relaxer and oxycodone. She denies any injury to cause her pain today. She denies fevers, chills, bowel/bladder incontinence, saddle paresthesia, leg weakness, radicular symptoms, history of IV drug use, and urinary symptoms. PFSH <RODRIGUEZ Mckee - Last Filed: 07/12/24 14:16> [facility] Medical History Right knee pain Left knee pain Substance abuse Wears glasses Marijuana use Acquired scoliosis Migraine headache Smoker Uterine fibroid Thyroid nodule Fibromyalgia H/O miscarriage, currently Anxiety Depression Obesity (BMI 30-39.9) Polysubstance (excluding opioids) dependence Migraine Home Medications ?Medication ?Instructions ?Recorded ?Last Taken ?Type pregabalin 150 mg capsule (Lyrica) 150 mg PO TID 06/18/21 07/13/22 History lorazepam 0.5 mg tablet (Ativan) 0.5 mg PO DAILY PRN Anxiety 06/05/22 07/12/22 History bupropion HCl 150 mg tablet,12 hr 150 mg PO 07/29/23 Unknown History sustained-release trazodone 150 mg tablet 150 mg PO DAILY 11/06/23 Unknown History metaxalone 800 mg tablet 800 mg PO TID 7 days #21 tabs 07/12/24 Unknown Rx Allergy/AdvReac Type Severity Reaction Status Date / Time tramadol Allergy Itching Verified 07/12/24 12:40 Family History Mother Diabetes Hypertension Father Hypertension Surgical History History of robot-assisted laparoscopic hysterectomy Hx of hemorrhoidectomy H/O adenoidectomy History of tonsillectomy H/O dilation and curettage History of cholecystectomy Social History household members: family housing: house current occupational status: employed pets and animals: Yes Smoking Status: Current every day smoker tobacco type: cigarettes second hand exposure: No alcohol intake: never substance use type: marijuana seatbelt use: always do you feel safe at home: Yes additional social history: - Igor GLASS <RODRIGUEZ Mckee - Last Filed: 07/12/24 14:16> ROS ED Constitutional Constitutional ED: Denies chills or fever(s) Cardiovascular Cardiovascular: Denies chest pain Respiratory/Chest Respiratory/Chest: Denies cough or dyspnea Genitourinary Genitourinary ED: Denies dysuria, hematuria or urinary frequency Musculoskeletal Musculoskeletal: Reports back pain Integumentary Denies rash Neurologic Neurologic: Denies paresthesias or weakness EXAM <RODRIGUEZ Mckee - Last Filed: 07/12/24 14:16> Physical Exam Const Vital Signs: 07/12/24 12:30 07/12/24 13:45 Temperature 97.8 F 97.9 F Temperature Source Temporal Pulse Rate 134 H 102 H Respiratory Rate 18 16 Blood Pressure 167/142 H 117/77 Blood Pressure Mean 150 90 Pulse Ox 97 98 Oxygen Delivery Method Room Air Positive well nourished, well developed and no apparent distress General Appearance ED: well developed HEENT Reports normocephalic and head/scalp atraumatic Mouth ED: Yes moist mucous membranes normal Eyes PERRL and EOMs intact bilaterally Neck full ROM and supple Chest Wall inspection of chest normal Resp normal respiratory effort and clear to auscultation bilaterally Cardio regular rate and regular rhythm Back/Spine normal ROM and normal to inspection Back/Spine Narrative: Bilateral paraspinal tenderness to the thoracic spine, minimal midline tenderness. No step-offs. Extremity normal to inspection and full ROM Neuro oriented x3, CN's II-XII intact bilaterally, moves all extremities, no focal motor deficits and no sensory deficits noted Neuro Narrative: 5/5 sensation lower extremities. Sensorium / Orientation: awake and alert Motor Exam: strength 5/5 throughout Deep Tendon Reflexes: Rt Patellar (L4): 2+ and Lt Patellar (L4): 2+ Deep Tendon Reflexes Back: Rt Patellar (L4): 2+ and Lt Patellar (L4): 2+ Psych mental status grossly normal and thought process normal Skin no rashes or lesions noted and no wounds <Dr. Yon Rowan MD - Last Filed: 07/12/24 13:14> Physical Exam Const Vital Signs: 07/12/24 12:30 07/12/24 13:45 Temperature 97.8 F 97.9 F Temperature Source Temporal Pulse Rate 134 H 102 H Respiratory Rate 18 16 Blood Pressure 167/142 H 117/77 Blood Pressure Mean 150 90 Pulse Ox 97 98 Oxygen Delivery Method Room Air MDM <RODRIGUEZ Mckee - Last Filed: 07/12/24 14:16> [facility] Narrative Medical decision making narrative: Patient presenting today with an exacerbation of her chronic mid thoracic back pain. She does not have any symptoms of cauda equina syndrome, low suspicion for spinal abscess. Her pain today feels consistent with previous exacerbations. Her examination is consistent with a muscular strain. I do not feel any emergent imaging is indicated. She was given IM Toradol and Skelaxin for pain, she has been given a prescription for Skelaxin and can alternate Tylenol and NSAIDs as needed. I encouraged that she follow-up with her PCP. Patient discharged home in stable condition. I have personally performed a face to face assessment of the patient and have reviewed the BALDEMAR Note. I performed a substantive portion of the visit including all aspects of the following. My cruz findings include: History is 34-year-old female with acute on chronic back pain. No prior MRI to her back. States she has had midthoracic back discomfort worse with movement last several days. Denies any fall injury or trauma. No fever. No bowel or bladder incontinence. No weakness. No numbness. No prior back surgery. States that when she gets this her primary care physician put her on narcotic pain medication. I explained to her that not what will you be doing today. Exam is [34-year-old female vital signs are stable blood pressure be rechecked as well her pulse. She is crying. Does not look septic or toxic. No distress. H EENT exam unremarked. Neck nontender. Lungs clear to auscultation bilateral. Heart rate about 110 no murmur. Chest wall and ribs nontender. Abdomen soft nontender. No peritoneal signs. Moving all 4 extremities. 5 out of 5 sheriffs detective strength. Dorsi plantarflexion intact. Negative straight leg raise bilaterally. No edema. No cauda equina or saddle anesthesia. Normal medial thigh and lower leg touch sensation. Neurologically she is awake and alert no focal motor deficits. Back there is reproducible thoracic and parathoracic soft tissue tenderness consistent with myofascial strain. There is no redness or warmth. There is no bruising or discoloration.] Medical Decision Making [patient treated with IM Toradol. Skelaxin p.o. for muscle relaxant. Discharged home with a prescription for Skelaxin and use of Tylenol Motrin for pain. Hot shower warm bath. Explained the patient we t ypically do not give narcotic prescriptions for this type of back pain. She does not need any imaging at this time there is been no trauma.] Other additions or changes: [None] <Dr. Yon Rowan MD - Last Filed: 07/12/24 13:14> [facility] MDM Narrative Medical decision making narrative: I have personally performed a face to face assessment of the patient and have reviewed the BALDEMAR Note. I performed a substantive portion of the visit including all aspects of the following. My cruz findings include: History is 34-year-old female with acute on chronic back pain. No prior MRI to her back. States she has had midthoracic back discomfort worse with movement last several days. Denies any fall injury or trauma. No fever. No bowel or bladder incontinence. No weakness. No numbness. No prior back surgery. States that when she gets this her primary care physician put her on narcotic pain medication. I explained to her that not what will you be doing today. Exam is [34-year-old female vital signs are stable blood pressure be rechecked as well her pulse. She is crying. Does not look septic or toxic. No distress. H EENT exam unremarked. Neck nontender. Lungs clear to auscultation bilateral. Heart rate about 110 no murmur. Chest wall and ribs nontender. Abdomen soft nontender. No peritoneal signs. Moving all 4 extremities. 5 out of 5 sheriffs detective strength. Dorsi plantarflexion intact. Negative straight leg raise bilaterally. No edema. No cauda equina or saddle anesthesia. Normal medial thigh and lower leg touch sensation. Neurologically she is awake and alert no focal motor deficits. Back there is reproducible thoracic and parathoracic soft tissue tenderness consistent with myofascial strain. There is no redness or warmth. There is no bruising or discoloration.] Medical Decision Making [patient treated with IM Toradol. Skelaxin p.o. for muscle relaxant. Discharged home with a prescription for Skelaxin and use of Tylenol Motrin for pain. Hot shower warm bath. Explained the patient we typically do not give narcotic prescriptions for this type of back pain. She does not need any imaging at this time there is been no trauma.] Other additions or changes: [None] Discharge Plan Triage Chief Complaint: Back ED Midlevel Provider: Iva Varela ED Provider: Yon Rowan Dx/Rx/DC Orders Clinical Impression: Strain of thoracic back region Instructions: ED Back Pain (Acute or Chronic), ED Back Sprain/Strain Prescriptions: New metaxalone 800 mg tablet 800 mg PO TID 7 Days Qty: 21 0RF No Action lorazepam [Ativan] 0.5 mg tablet 0.5 mg PO DAILY PRN (Reason: Anxiety) bupropion HCl 150 mg tablet sustained-release 12 hr 150 mg PO Patient Comments: TAKE 1 TABLET BY MOUTH 2 TIMES A DAY trazodone 150 mg tablet 150 mg PO DAILY pregabalin [Lyrica] 150 mg Capsule 150 mg PO TID Primary Care Provider: Darcy Maria Referrals: Darcy Maria MD [Primary Care Provider] - 3-5 Days if not improving Activity Restrictions/Additional Instructions: Motrin and Tylenol for pain. Is all good decrease your inflammation. Hot shower warm bath to relax the muscles. Skelaxin 1 pill 3 times a day for muscle relaxant. Follow-up with your doctor if not improving. Return if a lot worse. Print Language: [place] Disposition Disposition: Home, Self Care Discharge Date/Time: 07/12/24 13:51
[2024-07-12] MEDS: Ketorolac 60 MG/2 ML Vial IM (13:18)
[2024-07-12] MEDS: Metaxalone 800 MG Tablet PO (13:40)
[2024-07-12 13:45] VITALS: BP 117/77; PULSE 102; RESP 16; TEMP 36.6; O2SAT 98
== END 2024-07-12 13:51 | disposition home or self-care (01) ==
PROVIDERS: Emergency Provider Emergency Medicine; PCP Family Medicine; Visit Provider Emergency Medicine
DX: S29.012A Strain of muscle and tendon of back wall of thorax, initial encounter (principal); X58.XXXA Exposure to other specified factors, initial encounter; G89.29 Other chronic pain; E66.9 Obesity, unspecified; M41.9 Scoliosis, unspecified; M79.7 Fibromyalgia; F41.9 Anxiety disorder, unspecified; F32.A Depression, unspecified; Z90.49 Acquired absence of other specified parts of digestive tract; Z79.899 Other long term (current) drug therapy; F17.210 Nicotine dependence, cigarettes, uncomplicated
CPT/HCPCS: 96372; 99282

== ENCOUNTER 2024-08-18 10:00 | Outpatient (RCR) | payer MEDICAID, SELFPAY ==
--- NOTE | 2024-07-22 10:37 | HP.PTEVAL_ITS ---
Patient's Visit Information Visit Information Visit Information: NATALIO MARCIAL is a 34 year old F referred to Physical Therapy by Darcy Maria MD with a diagnosis of BACK PAIN. Date of Evaluation: 07/22/24 Physical Therapist: Benito Salcido PT, Cert MDT, OCS Visit Plan Frequency: 2x /Week Duration: 4 Weeks Plan: PT INTERVENTIONS THORACIC MOBILITY ,POSTURAL STRENGTHENING ,THORACIC STRENGTHENING ,MANUAL THERAPY AND MODALTIES Subjective Subjective: This 34 y/o female presents to physical therapy with thoracic pain. Patient has had back pain ~ 4 years . Patient seen DR had x-rays s - and muscle relaxer/hydrocodone . Patient pain between shoulder blades. Patient aggravating cold lifting ,bending ,and affects sleep. Patient interrupted sleep. Alleviating factors heat. No exercises. Coughing.sneezing +. Denies paresthesia/tingling-. Bowel/bladder-. Seen chiropractor [place] .Tried PT in past 4years ago. Trauma fell on back ~ 5 years ago. Patient pain affects QOL and function. Patient goals to decrease pain. SOCIAL: VOCATION: home Pain Bilateral Back: Pain Intensity (Out of 10): 6 Pain Intensity Range: 9 Comment: thoracic Objective Objective: POSTURE: mild forward posture PALAPTION: tender scapular mid back NEURO: denies paresthesia/tingling THORACIC ROM: flexion mod loss ,rotation mod rotation ,extension mod loss MMT: BUE 4/5 grossly LUMBAR ROM: flexion WFL ,extension WFL, side glides min loss Special Tests Thoracic Sitting: Flexion - Mechanical Response: No effect Thoracic Sitting: Flexion - Symptoms During Testing: Increases Thoracic Sitting: Flexion - Symptoms After Testing: No worse Thoracic Sitting: Extension - Mechanical Response: No effect Thoracic Sitting: Extension - Symptoms During Testing: Increases Thoracic Sitting: Extension - Symptoms After Testing: No worse Thoracic Sitting: Right rotation - Mechanical Response: No effect Thoracic Sitting: Right Rotation - Symptoms During Testing: No effect Thoracic Sitting: Right Rotation - Symptoms After Testing: No effect Thoracic Sitting: Left rotation - Mechanical Response: No effect Thoracic Sitting: Left Rotation - Symptoms During Testing: No effect Thoracic Sitting: Left Rotation - Symptoms After Testing: No effect L/S Slump test left side: Negative L/S Slump test right side: Negative L/S Left Straight Leg Raise: Negative L/S Right Straight Leg Raise: Negative Balance/Special Test Scores Oswestry Low Back Score: 25 Goals Goal 1:: Patient to be I with HEP for back Goal Time Frame: 4-6 Weeks Goal 2:: Patient to improve thoracic ROM for function of recovery for housework tasks Goal Time Frame: 4-6 Weeks Goal 3:: Patient to demonstrate 50% improvement with less pain and improved function Goal Time Frame: 4-6 Weeks Goal 4:: Patient to improve back oswestry score by 5 points to improve QOL Goal Time Frame: 4-6 Weeks Rehabilitation Potential Physical Therapy Diagnosis: This patient has back pain thoracic pain worse with motion testing and positioning affects ADLS and taking care of son thus benefit from skilled PT Rehabilitation Potential: Good Anticipated Interventions Patient/Client Instruction: Educate patient on: Condition and Plan of Care For the Purpose of:: To decrease pain, To increase ROM, To improve muscle performance and motor function, To improve ability to perform ADL's, To increase tolerance to activity/condition/position, To improve ability of physical actions for home/community/work/leisure, To improve health of tissue, To decrease soft tissue restriction, To increase flexibility/ROM and To improve tolerance to ADL's Therapeutic Exercise to Include: Strength training, Postural training, Flexibilty training, Dynamic Lumbar Stabilization and Scapular Stre ngth/Stabilization Comment: THORACIC For the Purpose of:: To decrease pain, To increase ROM, To improve muscle performance and motor function, To improve ability to perform ADL's, To increase tolerance to activity/condition/position, To improve performance and independence with ADL's, To improve ability of physical actions for home/community/work/leisure, To improve health of tissue, To decrease soft tissue restriction, To increase flexibility/ROM and To improve tolerance to ADL's Manual Therapy Techniques to Include: Soft tissue mobilization For the Purpose of:: To decrease pain, To increase ROM, To improve nutrient delivery to tissue, To increase oxygenation perfusion, To improve health of tis rola and To decrease soft tissue restriction TENS: Yes IF ES: Yes Cryotherapy (ice pack, ice massage): Yes Thermo therapy (hot pack): Yes Ultrasound (thermal/non thermal): Yes For the Purpose of:: To decrease pain, To increase ROM, To improve nutrient delivery to tissue and To increase oxygenation perfusion Text: Thank you for the opportunity to evaluate your patient. For Medicare and Medicare HMO plans, please review the plan of care and approve it. It will need to be FAXED BACK to us at [phone] for Medicare purposes. For Medicare only, by signing this I certify the plan of care. Please let me know if there are questions or concerns regarding this plan of care. Physician Signature: Date:
--- NOTE | 2024-12-16 10:14 | HP.PT.NRP ---
Patient Information Patient Information: NATALIO MARCIAL was seen in my office for initial evaluation on 07/22/24. The following Plan of Care was established for this patient: POC Established Initial Frequency: 2x /Week Initial Duration: 4 Weeks Anticipated Interventions Patient/Client Instruction: Educate patient on: Condition and Plan of Care For the Purpose of:: To decrease pain, To increase ROM, To improve muscle performance and motor function, To improve ability to perform ADL's, To increase tolerance to activity/condition/position, To improve ability of physical actions for home/community/work/leisure, To improve health of tissue, To decrease soft tissue restriction, To increase flexibility/ROM and To improve tolerance to ADL's Therapeutic Exercise to Include: Strength training, Postural training, Flexibilty training, Dynamic Lumbar Stabilization and Scapular Strength/Stabilization For the Purpose of:: To decrease pain, To increase ROM, To improve muscle performance and motor function, To improve ability to perform ADL's, To increase tolerance to activity/condition/position, To improve performance and independence with ADL's, To improve ability of physical actions for home/community/work/leisure, To improve health of tissue, To decrease soft tissue restriction, To increase flexibility/ROM and To improve tolerance to ADL's Manual Therapy Techniques to Include: Soft tissue mobilization For the Purpose of:: To decrease pain, To increase ROM, To improve nutrient delivery to tissue, To increase oxygenation perfusion, To improve health of tissue and To decrease soft tissue restriction TENS: Yes IF ES: Yes Cryotherapy (ice pack, ice massage): Yes Thermo therapy (hot pack): Yes Ultrasound (thermal/non thermal): Yes For the Purpose of:: To decrease pain, To increase ROM, To improve nutrient delivery to tissue and To increase oxygenation perfusion Last Seen Last Seen: This patient was last seen in our office . Pertinent comments regarding their Physical therapy will appear below: Patient was seen for PT for lumbar pain with HEP and d/c At this point I will be discontinuing this patient from physical therapy. I would be happy to see this patient again in the future if found appropriate by the physician. Thank you! Benito Salcido, PT, Cert MDT, OCS Balance/Gait/Functional tests Balance/Special Test Scores Oswestry Low Back Score: 25
== END 2024-08-18 19:00 | disposition home or self-care (01) ==
LOC: PT 10:00
PROVIDERS: PCP Family Medicine; Referring Provider Family Medicine; Visit Provider Family Medicine
DX: M54.9 Dorsalgia, unspecified (principal)
CPT/HCPCS: 97110; 97162

== ENCOUNTER 2024-09-16 07:23 | Day surgery (SDC) | payer MEDICAID, SELFPAY ==
[2024-09-16] VITALS (12 sets, daily range): BP systolic 111–136; BP diastolic 70–101; PULSE 78–112; RESP 16–20; TEMP 36–36.6; O2SAT 91–100; BMI 44.3
--- NOTE | 2024-09-16 07:33 | PCM.PRE.AN2 ---
ASA Classification* ASA Classification ASA Classification: 3 Assessment & Plan Anesthesia* Anesthesia Assessment Anesthesia Assessment: Discussed sedation and/or anesthesia options, risks, benefits, and alternatives with patient/parents/legal guardian/POA. Questions invited. The patient/parents/legal guardian/POA seems to understand and agrees to proceed with anesthesia plan. Reviewed the physical assessment, medical history, allergy history and patient home medications list prior to surgery/procedure/anesthetic and documented any changes. Performed airway and anesthesia risk assessments. Anesthesia Type Anesthesia Type: General Anesthesia Focused Assessment* Airway Assessment Mouth opens: >3 cm Mallampati Score: II Focused Labs Anesthesia Preop lab: CBC WBC 14.6 K/mm3 (4.4-11.0) H 10/24/23 13:02 10/24/23 RBC 4.82 M/mm3 (4.2-5.4) 10/24/23 13:02 10/24/23 Hgb 14.2 g/dL (12.0-15.0) 10/24/23 13:02 10/24/23 Hct 42.8 % (37-47) 10/24/23 13:02 10/24/23 Plt Count 370 K/mm3 (150-450) 10/24/23 13:02 10/24/23 CHEMISTRY Potassium 3.7 mmol/L (3.5-5.1) 10/24/23 13:02 10/24/23 Sodium 138 mmol/L (136-145) 10/24/23 13:02 10/24/23 Magnesium 2.2 mg/dL (1.6-2.6) 07/10/22 10:15 07/10/22 BUN 14 mg/dL (7-18) 10/24/23 13:02 10/24/23 Creatinine 1.04 mg/dL (0.55-1.02) H 10/24/23 13:02 10/24/23 Glucose 290 mg/dL (74-106) H 10/24/23 13:02 10/24/23 POC Glucose 117 mg/dL (74-106) H 07/13/22 06:39 07/13/22 TSH 1.29 uIU/mL (0.358-3.74) 06/06/23 09:09 06/06/23 COAG HCG, Quant 4 mIU/mL (1-3) 02/29/20 13:11 02/29/20 Urine Test Negative Negative 07/13/22 06:00 07/13/22 Tst Clinic Negative 03/01/21 11:37 03/01/21 Pre-Assessment Diagnosis/Proposed Procedure Planned Operative Procedure(s): HEMORRHOIDECTOMY Anesthesia History Anesthesia History - automobile sales representative: Anesthesia History - automobile sales representative Hx Hospitalization No 09/03/24 11:35 Any Problems With Anesthesia No 09/03/24 11:35 Cholinesterase deficiency No 09/03/24 11:35 You/Your Family Experience No 09/03/24 11:35 fever (hyperthermia) with Relationship Recent Exposure to Contagious No 07/25/23 13:20 Disease Does patient have nerve No 09/03/24 11:35 stimulator Patient instructed to have device shut off --Does patient have Pacemaker or ICD? When Was Last Pacemaker Check QUESTION #4 FULL TEXT: You/Your Family Experience fever (hyperthermia) with Anesthesia Last Oral Intake Last Oral intake: Last Oral Intake NPO since Meds taken in AM with sips of water? Meds patient instructed to take am of surgery PONV PONV - automobile sales representative: PONV - automobile sales representative Female Yes 09/03/24 11:35 HX of Motion Sickness No 09/03/24 11:35 HX of N/V After Surgery No 09/03/24 11:35 Non-Smoker No 09/03/24 11:35 Duration of Surgery greater No 09/03/24 11:35 than 60 minutes Number of Risk Factors 1 09/03/24 11:35 PONV Score Low Risk 09/03/24 11:35 Height & Weight Height & Weight: Anesthesia: Height & Weight Height 5 ft 2 in 09/15/24 08:20 Weight: 111.584 kg 09/15/24 08:20 Respiratory Assessment Respiratory Assessment - automobile sales representative: Respiratory Tract Infection Hx - automobile sales representative Hx Respiratory Tract Infection No 09/03/24 11:35 STOP Sleep Apnea STOP Sleep Apnea - automobile sales representative: STOP Sleep Apnea - automobile sales representative Hx Hypertension No 09/03/24 11:35 Hx Sleep Apnea No 09/03/24 11:35 CPAP No 07/25/23 13:20 BIPAP No 07/25/23 13:20 Do you snore loudly (louder Yes 09/03/24 11:35 than talking or can be heard Do you often feel tired/ No 09/03/24 11:35 fatigued/ sleepy during daytime? Has anyone observed you stop No 09/03/24 11:35 breathing during sleep? STOP Results Negative 09/03/24 11:35 QUESTION #5 FULL TEXT : Do you snore loudly (louder than talking or can be heard through closed doors)? Tobacco Use History Tobacco Use History - automobile sales representative: Tobacco Use History - automobile sales representative Tobacco Use Smoking Status Current every day smoker 09/03/24 11:35 Hx Tobacco Use Yes 09/03/24 11:35 Years Smoking Packs Smoked per Day Smoking Cessation Date was within the last 15 years Hx Smoking Cessation Date Hx Smoking Cessation Yes 09/03/24 11:35 Counseling Hematologic Medial History Hematologic Hx - automobile sales representative: Hematologic Medical Hx - clinical documentation specialist Hx of Blood Transfusion No 09/03/24 11:35 Hx of Transfusion in last 3 No 09/03/24 11:35 Months Date of Last Transfusion (if within last 3 months) Ever experience any problems No 09/03/24 11:35 with transfusion(s)? Specify any problems Hx of Preganancy in last 3 No 09/03/24 11:35 Months Nurse Filling Out Transfusion DSCHRIBER 09/03/24 11:35 & Questions: Date: 09/03/24 09/03/24 11:35 Time: 11:37 09/03/24 11:35 Patient unable to answer at this time (ie. confused, unrespo /Reproduction History /Reproductive History - automobile sales representative: /Reproductive Hx- automobile sales representative Hx Now No 09/03/24 11:35 Gestational Age (in weeks): EDC: Hx Hx Para Hx Section SAB No 09/03/24 11:35 Active Medications Active Medications: Current Medications Generic Name Dose Route Start Last Admin Trade Name Freq PRN Reason Stop Dose Admin Sodium Chloride 1,000 mls @ 15 mls/hr 09/16/24 07:30 IV 09/21/24 20:49 .Q48H CEFERINO Protocol PFSH Medical History Wears contact lenses Depression Anxiety Back pain Vertigo Leg cramps Right knee pain Left knee pain Substance abuse Wears glasses Marijuana use Smoker Uterine fibroid Thyroid nodule Obesity (BMI 30-39.9) Polysubstance (excluding opioids) dependence Migraine Home Medications ?Medication ?Instructions ?Recorded ?Last Taken ?Type pregabalin 150 mg capsule (Lyrica) 150 mg PO TID 06/18/21 07/13/22 History Hydrocortisone 2.5%/lidocaine 5% #30 ea 08/27/24 Unknown Rx suppository (cmpd) (hydrocortisone 2.5%/lidocaine 5% suppository (compound)) zolpidem 10 mg tablet (Ambien) 10 mg PO QHS PRN insomnia 08/27/24 Unknown History Allergy/AdvReac Type Severity Reaction Status Date / Time tramadol Allergy Itching Verified 09/03/24 11:34 Family History Mother Diabetes Hypertension CVA (cerebral vascular accident) Father Hypertension Surgical History History of History of robot-assisted laparoscopic hysterectomy Hx of hemorrhoidectomy H/O adenoidectomy History of tonsillectomy H/O dilation and curettage History of cholecystectomy Social History household members: family housing: house current occupational status: employed pets and animals: Yes Smoking Status: Current every day smoker tobacco type: cigarettes second hand exposure: No alcohol intake: never substance use type: marijuana seatbelt use: always do you feel safe at home: Yes additional social history: - Igor Review of Systems (Anesthesia) ROS Narrative System reviewed and no additional complaints, except as documented.
[2024-09-16] MEDS: 0.9% Normal Saline (1000mL) 1,000 ML 15 ML IV (07:46)
--- NOTE | 2024-09-16 09:03 | PCM.HP.STD ---
HPI - General General Date of Admission: 09/16/24 Date of Service: 09/16/24 Chief Complaint: Symptomatic hemorrhoids HPI Narrative NATALIO KHAN, is a 34 F who presents today for elective hemorrhoid artery ligation surgery. She was seen in the office to discuss surgery that she wishes to proceed. [facility] Medical History Wears contact lenses Depression Anxiety Back pain Vertigo Leg cramps Right knee pain Left knee pain Substance abuse Wears glasses Marijuana use Smoker Uterine fibroid Thyroid nodule Obesity (BMI 30-39.9) Polysubstance (excluding opioids) dependence Migraine Home Medications ?Medication ?Instructions ?Recorded ?Last Taken ?Type pregabalin 150 mg capsule (Lyrica) 150 mg PO TID 06/18/21 09/16/24 06:30 History Hydrocortisone 2.5%/lidocaine 5% #30 ea 08/27/24 Unknown Rx suppository (cmpd) (hydrocortisone 2.5%/lidocaine 5% suppository (compound)) zolpidem 10 mg tablet (Ambien) 10 mg PO QHS PRN insomnia 08/27/24 Unknown History Allergy/AdvReac Type Severity Reaction Status Date / Time tramadol Allergy Itching Verified 09/16/24 07:35 Family History Mother Diabetes Hypertension CVA (cerebral vascular accident) Father Hypertension Surgical History History of History of robot-assisted laparoscopic hysterectomy Hx of hemorrhoidectomy H/O adenoidectomy History of tonsillectomy H/O dilation and curettage History of cholecystectomy Social History household members: family housing: house current occupational status: employed pets and animals: Yes Smoking Status: Current every day smoker tobacco type: cigarettes second hand exposure: No alcohol intake: never substance use type: marijuana seatbelt use: always do you feel safe at home: Yes additional social history: - Igor Vital Signs Vital Signs Vital Signs: 09/16/24 07:36 09/16/24 07:36 Temperature 97.9 F Temperature Source Temporal Pulse Rate 106 H Respiratory Rate 18 Respiratory Pattern Normal Blood Pressure 136/84 H Blood Pressure Mean 101 Blood Pressure Source Monitor Blood Pressure Position Sitting Blood Pressure Location Left Arm Pulse Ox 99 Oxygen Delivery Method Room Air Weight Weight: 242 lb 8.136 oz Body Mass Index (BMI) 44.3 Physical Exam Const alert, oriented x3 and no apparent distress Assessment & Plan Assessment/Plan (1) Hemorrhoids: PLAN: Plan The patient is a 34-year-old female with symptomatic internal hemorrhoids. I have offered her a Doppler guided hemorrhoid artery ligation surgery. We discussed the details of the planned procedure including the risks benefits and alternatives. She wishes to proceed. Surgery will begin momentarily Charges/Coding Visit Charges Inpatient E&M: 91134 Init Hosp L1
[2024-09-16] MEDS: Bupiv/Epi 0.25% 30 ML Vial (09:55)
--- NOTE | 2024-09-16 10:11 | DCINST_ITS ---
Discharge Instructions Diet Discharge Diet: Light diet - advance as tolerated Activity Discharge Activity: Return to Normal Activity, May Shower and May Take a Tub Bath Lifting Restrictions: Try to minimize lifting over 50 pounds Dressing / Incision Call your doctor if your incision/area has: Continuous Slow Oozing, Sudden Increased Bleeding, Increased Pain/ Swelling, Foul Smelling Discharge and Swell ing at the incision site Call your doctor if you observe: Fever of 101 or Higher Cleanse incision/area with: Soap & Water Follow Up Care Please Follow Up With: Darien Leigh MD When: 2 to 3 weeks Test Results: Test results from this visit will be discussed in further detail at your follow- up appointment, if applicable. Discharge Plan Admission Primary Reason for Your Visit: Hemorrhoid surgery Attending Provider: Darien Leigh Primary Care Provider: Darcy Maria Instructions Print Language: Ukrainian Discharge Orders/Prescriptions Prescriptions: New oxycodone-acetaminophen [Percocet] 5-325 mg tablet 1 tab PO Q8H PRN (Reason: pain) 3 Days Qty: 7 0RF Continued zolpidem [Ambien] 10 mg tablet 10 mg PO QHS PRN (Reason: insomnia) (DME) hydrocortisone 2.5%/lidocaine 5% suppository (compound) Suppository See Rx Instructions .ROUTE Qty: 30 1RF Rx Instructions: As directed BID PRN rectal pain pregabalin [Lyrica] 150 mg Capsule 150 mg PO TID Referrals / Follow Up: Darcy Maria MD [Primary Care Provider] - Disposition Disposition (needs filled in before D/C Order can be placed): Home, Self Care
--- NOTE | 2024-09-16 10:22 | PCM.OPRPT ---
Problems Associated Problem List Diagnoses (1) Hemorrhoids: Procedures Digestive 40xxx-49xxx: 00549 Excision, Anus w/US guidance Operative Report (Standard) Operative Information Date of Procedure: 09/16/24 Pre-Operative Diagnosis: Symptomatic internal hemorrhoids Post-Operative Diagnosis: Same Surgery/Procedure Performed: Doppler guided hemorrhoid artery ligation inspector timers: Yes Supply Manager: Susan Santacruz Tasks completed by registered dental assistant: Retracting Additional restaurant assistant manager?: No Type of Anesthesia: General and Local RN Documented Start/Stop Times: Operation Date: 09/16/24 09:00 Case Time Into Pre-Op 09/16/24 07:27 Out of Pre-Op 09/16/24 09:16 Anesthesia Start 09/16/24 09:18 Into Room 09/16/24 09:18 Procedure Start 09/16/24 09:38 Procedure End 09/16/24 09:56 Anesthesia End 09/16/24 10:03 Out of Room 09/16/24 10:03 Into Recovery 09/16/24 10:06 Procedure Start Time: 09:38 Procedure Stop Time: 09:56 Select all DRAINS/GRAFTS/IMPLANTS that apply: None Estimated Blood Loss: Minimal Specimen collected: No Description of surgery: The patient is a 34-year-old female recently seen to the office with rectal pain. No obvious abscess or fissure was noted. It was felt that this was most likely hemorrhoidal in nature. She had had a previous excisional hemorrhoidectomy of external hemorrhoids. We offered her a Doppler guided hemorrhoid artery ligation surgery. We discussed the details of the planned procedure including the risks benefits and alternatives. She wished to proceed. She was brought to the operating room today following informed consent. She was placed supine the operative table with arms outstretched on arm boards. A general LMA anesthesia was induced. Once adequately sedated her legs were placed in modified lithotomy position with appropriate padding. Digital rectal exam was performed after the area was prepped and draped in the usual manner. No obvious masses were noted. No anal fissure was appreciated. The Doppler probe was inserted first at the 12 o'clock position and was rotated in a clockwise direction such that at each point in which a dopplerable signal was encountered, a 2-0 Vicryl suture was placed in a [id number] manner and tied down. This was repeated a total of 6 times around the circumference of the rectum. The sutures effectively tied off the blood supply to the internal hemorrhoids with the intention of relieving pain and/or bleeding. At the completion of the procedure a total of 30 cc of local anesthetic was injected in a bilateral pudendal block manner. She was then awakened from anesthesia and taken to recovery in good condition. Surgical Findings: Symptomatic internal hemorrhoids. No anal fissure Complications Complications: No Admit VTE Documentation VTE Present on Admission: No VTE Mechan Device Prophylaxis: SCD's VTE Pharm Prophylaxis ordered?: No Reason prophylaxis not ordered: Treatment Not Indicated
[2024-09-16] MEDS: Acetaminophen 325 MG Tablet PO (11:13)
[2024-09-16] MEDS: oxyCODONE 5 MG Tablet PO (11:13)
--- NOTE | 2024-09-16 13:06 | PCM.POST.ANE ---
Anesthesia: Postop Eval I Current Vital Signs Temperature: 96.8 F Pulse Rate: 78 Blood Pressure: 111/80 Respiratory Rate: 16 Pulse Ox: 97 Oxygen Delivery Method: Room Air Assessment Airway patent: Yes Spontaneous unlabored respirations: Yes nausea: No Vomiting: No Anesthesia Complication: No Fluid Hydration Crystalloid volume administer (ml): 100 Total IV fluid infused: 100 Progress Note Anesthesia document: Postop Eval 1 completed: Yes
--- NOTE | 2024-09-16 13:07 | PCM.POSTANE2 ---
Anesthesia Postop Eval I Sum Postop Eval Completion status Anesthesia document: Postop Eval 1 completed: Yes Anesthesia Postop Eval I Summary Anesthesia Postop Eval I Summary: Anesthesia Postop Eval I: Assessment Summary Airway patent Yes 09/16/24 13:07 Spontaneous unlabored Yes 09/16/24 13:07 respirations Mental status nausea No 09/16/24 13:07 Vomiting No 09/16/24 13:07 Anesthesia Postop Eval I: Fluid Summary Crystalloid volume administer 100 09/16/24 13:07 (ml) Colloids volume administered ( ml) Blood Product volume administered (ml) Total IV fluid infused 100 09/16/24 13:07 Anesthesia Postop Eval I: Summary Notes Anesthesia Complication No 09/16/24 13:07 Anesthesia Complication Comment: Post-operative progress note Anesthesia: Postop Eval II Evaluation Mental status: Awake Pain Level: 0 nausea: No Vomiting: No
== END 2024-09-16 11:55 | disposition home or self-care (01) ==
LOC: SDC 07:23 → AC 07:26
PROVIDERS: PCP Family Medicine; Referring Provider Surgery; Visit Provider Surgery
PROC: (CPT 46948; principal; 2024-09-16 08:45)
DX: K64.8 Other hemorrhoids (principal); F17.210 Nicotine dependence, cigarettes, uncomplicated; Z79.899 Other long term (current) drug therapy; E66.9 Obesity, unspecified
CPT/HCPCS: 46948; 00902; J2405

== ENCOUNTER 2024-11-29 15:35 | Emergency (ER) | payer MEDICAID, SELFPAY ==
[2024-11-29 15:36] VITALS: BP 155/121; PULSE 110; RESP 18; TEMP 36.4; O2SAT 99; BMI 46.3
--- NOTE | 2024-11-29 15:54 | EDS_ITS ---
HPI <RODRIGUEZ Mckee - Last Filed: 11/29/24 17:31> HPI - Female History of Present Illness Chief Complaint: Female C/O Narrative Narrative: Patient presented today due to concerns for a painful cystlike structure to her mons pubis that she has had over the past 3 to 4 days. She reports that the area is painful to touch. She denies history of abscess to this area. She denies any fevers, chills, nausea, vomiting, or urinary symptoms. PFSH <RODRIGUEZ Mckee - Last Filed: 11/29/24 17:31> [facility] Medical History Rectal pain Wears contact lenses Depression Anxiety Back pain Vertigo Leg cramps Right knee pain Left knee pain Substance abuse Wears glasses Marijuana use Smoker Uterine fibroid Thyroid nodule Obesity (BMI 30-39.9) Polysubstance (excluding opioids) dependence Migraine Home Medications ?Medication ?Instructions ?Recorded ?Last Taken ?Type pregabalin 150 mg capsule (Lyrica) 150 mg PO TID 06/1809/16/24 06:30 History zolpidem 10 mg tablet (Ambien) 10 mg PO QHS PRN insomn ia 08/27/24 Unknown History diazepam 5 mg tablet (Valium) 5 mg PO BID PRN muscle s pasm #14 10/07/24 Unknown Rx tabs hydrocortisone 2.5 % topical cream 1 applic [place] TID PRN pain 3 weeks 10/07/24 Unk nown Rx with perineal applicator #30 grams (Anusol-HC) clindamycin HCl 300 mg capsule 300 mg PO Q6H 5 days #2 0 CAPSULES 11/29/24 Unknown Rx (Cleocin HCl) hydrocodone-acetaminophen 5-325mg 1 tab PO Q4H PRN PRN Pain 2 days 11/29/24 Unknown Rx 5mg-325mg #7 TABLETS Allergy/AdvReac Type Severity Reaction Status Date / Time tramadol Allergy Itching Verified 11/29/24 15:40 Family History Mother Diabetes Hypertension CVA (cerebral vascular accident) Father Hypertension Surgical History History of History of robot-assisted laparoscopic hysterectomy Hx of hemorrhoidectomy H/O adenoidectomy History of tonsillectomy H/O dilation and curettage History of cholecystectomy Social History household members: family housing: house current occupational status: employed pets and animals: Yes Smoking Status: Current every day smoker tobacco type: cigarettes second hand exposure: No alcohol intake: never substance use type: marijuana seatbelt use: always do you feel safe at home: Yes additional social history: - Igor GLASS <RODRIGUEZ Mckee - Last Filed: 11/29/24 17:31> ROS ED Constitutional Constitutional ED: Denies chills or fever(s) Cardiovascular Cardiovascular: Denies chest pain Respiratory/Chest Respiratory/Chest: Denies dyspnea Gastrointestinal Gastrointestinal: Denies abdominal pain, nausea or vomiting Genitourinary Genitourinary ED: Denies dysuria, hematuria or urinary frequency Musculoskeletal Musculoskeletal: Denies arthralgias or myalgias Integumentary Denies abscess or rash Neurologic Neurologic: Denies weakness EXAM <RODRIGUEZ Mckee - Last Filed: 11/29/24 17:31> Physical Exam Const Vital Signs: 11/29/24 15:36 11/29/24 17:04 Temperature 97.6 F L 97.6 F L Temperature Source Oral Pulse Rate 110 H 74 Respiratory Rate 18 16 Blood Pressure 155/121 H 137/97 H Blood Pressure Mean 132 110 Pulse Ox 99 96 Oxygen Delivery Method Room Air Positive well nourished, well developed and no apparent distress General Appearance ED: well developed HEENT Reports normocephalic and head/scalp atraumatic Mouth ED: Yes moist mucous membranes normal Eyes PERRL and EOMs intact bilaterally Neck full ROM and supple Chest Wall inspection of chest normal Resp normal respiratory effort and clear to auscultation bilaterally Cardio regular rate and regular rhythm GI soft to palpation, non-tender, non-distended and no masses Back/Spine normal ROM and normal to inspection Extremity normal to inspection and full ROM Neuro oriented x3, CN's II-XII intact bilaterally, moves all extremities, no focal motor deficits and no sensory deficits noted Sensorium / Orientation: awake and alert Psych mental status grossly normal and thought process normal Skin Skin Narrative: Small area of induration and erythema to the mons pubis about a dime size in diameter with no definite abscess formation or fluctuance. No crepitus to the area. <Dr. Miko Marrufo DO - Last Filed: 12/01/24 00:44> Physical Exam Const Vital Signs: 11/29/24 15:36 11/29/24 17:04 Temperature 97.6 F L 97.6 F L Temperature Source Oral Pulse Rate 110 H 74 Respiratory Rate 18 16 Blood Pressure 155/121 H 137/97 H Blood Pressure Mean 132 110 Pulse Ox 99 96 Oxygen Delivery Method Room Air MDM <RODRIGUEZ Mckee - Last Filed: 11/29/24 17:31> [facility] Narrative Medical decision making narrative: Patient presenting today with concerns for a cystlike painful area to her mons pubis that she has had over the past 3 to 4 days. She is otherwise nontoxic-marixa earing. She is afebrile. She has a small dime sized area of induration and erythema to her mons pubis with no definite abscess formation, there is no fluctuance to the area. I did offer to I&D the area and she would like to try this. The area was cleaned with alcohol and anesthetized with 1% lidocaine with epinephrine. A small incision was made with a #11 blade and blood was expelled from the area but no purulent discharge. I will place her on a course of clindamycin with first dose here. Recommended she place warm compresses to the area several times daily. She was medicated here with IM morphine for pain and I will give her a short course of Rincon for home for pain. Recommended she follow-up with her PCP in the next 5 to 7 days, return instructions were discussed and patient discharged home in stable condition. <Dr. Miko Marrufo, - Last Filed: 12/01/24 00:44> [facility] Treatment and Re-Evaluation Narrative: I evaluated the patient with the physician diversional therapist's assistant. I agree with their history of present illness physical exam and plan of care. Below is my documentation from the individual encounter with the patient. Patient is a 34-year-old female with past medical history of anxiety and depression as well as migraine headache. She reports that over the past few days she has had increasing pain in her vaginal region. She states there is now a lump present. She states that she tried to pop it at home without any symptom improvement. With concern for infection she presents for evaluation PE: General: Awake alert no acute distress Heart: Regular rate and rhythm Lungs: Clear to auscultation Abdomen: Soft nontender nondistended with normal active bowel sounds no voluntary guarding or rigidity or pulsatile mass : As documented by the physician diversional therapist's assistant MDM: Patient presented to the ER hypertensive but otherwise with stable vitals and is afebrile. History and exam is consistent with a small Bartholin cyst versus abscess versus surrounding cellulitis. At this time the lesion is small but as there is concern that the lesion could be larger in the subcutaneous structures. Therefore an incision and drainage was performed as documented by the physician diversional therapist's assistant. At this time without signs of systemic infection there is no need for imaging or laboratory studies. As the area has now been incised and drained patient will be placed on antibiotics for infection control and is otherwise safe for discharge with outpatient follow-up. Discharge Plan Triage Chief Complaint: Female C/O ED Midlevel Provider: Iva Varela ED Provider: Miko Marrufo Dx/Rx/DC Orders Clinical Impression: Cellulitis, Depression, Anxiety, Migraine, Bartholin gland cyst Instructions: ED Abscess Incision And Drainage, ED Cellulitis Prescriptions: New hydrocodone-acetaminophen 5-325 mg tablet 1 tab PO Q4H PRN PRN (Reason: Pain) 2 Days Qty: 7 0RF clindamycin HCl [Cleocin HCl] 300 mg capsule 300 mg PO Q6H 5 Days Qty: 20 0RF No Action zolpidem [Ambien] 10 mg tablet 10 mg PO QHS PRN (Reason: insomnia) hydrocortisone [Anusol-HC] 2.5 % cream with perineal applicator 1 applic AK TID PRN (Reason: pain) 21 Days Qty: 30 1RF diazepam [Valium] 5 mg tablet 5 mg PO BID PRN (Reason: muscle spasm) Qty: 14 0RF pregabalin [Lyrica] 150 mg Capsule 150 mg PO TID Primary Care Provider: Darcy Maria Referrals: Darcy Maria MD [Primary Care Provider] - 5-7 Days Activity Restrictions/Additional Instructions: Follow-up with your PCP and return for any other concerns. Use warm compresses to the area. Print Language: Faroese Disposition Disposition: Home, Self Care Discharge Date/Time: 11/29/24 17:05
[2024-11-29] MEDS: Lidocaine 2% /Epi 1:100 (20ml) 20 ML VIAL INFILT (16:23)
[2024-11-29] MEDS: Ondansetron ODT 4 MG Tablet PO (16:23)
[2024-11-29] MEDS: morphine 10 MG/ML Syringe 8 MG IM (16:26)
[2024-11-29] MEDS: Clindamycin HCl 150 MG Capsule 450 MG PO (16:54)
[2024-11-29 17:04] VITALS: BP 137/97; PULSE 74; RESP 16; TEMP 36.4; O2SAT 96
== END 2024-11-29 17:05 | disposition home or self-care (01) ==
PROVIDERS: Emergency Provider Emergency Medicine; PCP Family Medicine; Visit Provider Emergency Medicine
DX: N75.0 Cyst of Bartholin's gland (principal); F41.9 Anxiety disorder, unspecified; F32.A Depression, unspecified; F17.210 Nicotine dependence, cigarettes, uncomplicated; G43.909 Migraine, unspecified, not intractable, without status migrainosus; L03.90 Cellulitis, unspecified
CPT/HCPCS: 10060; 96372; 99282

== ENCOUNTER → 2024-12-22 | Outpatient (CLI) | payer MEDICAID, SELFPAY ==
[2024-12-22 18:33] LABS: ALB/GLOB Ratio 1.2 RATIO (0.9-2.4); AST(SGOT) 27 U/L (<=31); Alanine Aminotransfer ALT/SGPT 44 U/L (<=34); Albumin, Serum 3.9 g/dL (3.5-5.0); Alkaline Phosphatase 105 U/L (35-104); Anion Gap 11 (5-15); BUN 11 mg/dL (4-19); BUN/Creat Ratio 15.5 RATIO (10-20); Calcium,Total 8.8 mg/dL (7.6-11.0); Carbon Dioxide 21.8 mmol/L (21.0-32.0); Chloride 104 mmol/L (98-108); EST Glomerular Filtration Rate 114 (>60); Globulin 3.2 g/dL (2.2-4.2); Glucose 87 mg/dL (70-99); Potassium 3.8 mmol/L (3.3-5.1); Protein, Total 7.2 g/dL (5.9-8.4); Sodium Level 137 mmol/L (133-145); Total Bilirubin < 0.15 mg/dL (0.00-1.30)
== END | disposition home or self-care (01) ==
LOC: MTLAB 16:35
PROVIDERS: PCP Family Medicine; Referring Provider Family Medicine; Visit Provider Family Medicine
DX: B35.1 Tinea unguium (principal)
CPT/HCPCS: 36415; 80053

== ENCOUNTER 2025-01-09 10:02 | Emergency (ER) | payer MEDICAID, SELFPAY ==
[2025-01-09 10:03] VITALS: BP 119/59; PULSE 97; RESP 18; TEMP 36.6; O2SAT 98; BMI 46.6
--- NOTE | 2025-01-09 10:42 | EDS_ITS ---
HPI History of Present Illness Chief Complaint: Abscess Informant: patient and spouse/S.O. Narrative Narrative: 34-year-old female presenting to the emergency room with a painful red area on the right inner thigh. Patient states has been present for the past couple days and worsening. No reported fevers. She was recently treated with clindamycin for a developing abscess in the mons pubis region. No reported fever. No drainage from the area as noted by patient. [facility] Medical History Rectal pain Wears contact lenses Depression Anxiety Back pain Vertigo Leg cramps Right knee pain Left knee pain Substance abuse Wears glasses Marijuana use Smoker Uterine fibroid Thyroid nodule Obesity (BMI 30-39.9) Polysubstance (excluding opioids) dependence Migraine Home Medications ?Medication ?Instructions ?Recorded ?Last Taken ?Type pregabalin 150 mg capsule (Lyrica) 150 mg PO TID 06/1809/16/24 06:30 History zolpidem 10 mg tablet (Ambien) 10 mg PO QHS PRN insomn ia 08/27/24 Unknown History diazepam 5 mg tablet (Valium) 5 mg PO BID PRN muscle s pasm #14 10/07/24 Unknown Rx tabs hydrocortisone 2.5 % topical cream 1 applic [place] TID PRN pain 3 weeks 10/07/24 Unknown Rx with perineal applicator #30 grams (Anusol-HC) clindamycin HCl 300 mg capsule 300 mg PO Q6H 5 days #2 0 CAPSULES 11/29/24 Unknown Rx (Cleocin HCl) hydrocodone-acetaminophen 5-325mg 1 tab PO Q4H PRN PRN Pain 2 days 11/29/24 Unknown Rx 5mg-325mg #7 TABLETS duloxetine 40 mg capsule,delayed 40 mg PO DAILY Unknown History release hydrocodone-acetaminophen 5-325mg 1 tab PO Q6H PRN harmony n 2 days #8 01/09/25 Unknown Rx 5mg-325mg tabs sulfamethoxazole 800 1 tab PO BID #20 TABLETS Unknown Rx mg-trimethoprim 160 mg tablet terbinafine HCl 250 mg tablet 250 mg PO DAILY 01/09/25 Unknown History Allergy/AdvReac Type Severity Reaction Status Date / Time tramadol Allergy Itching Verified 01/09/25 10:03 Family History Mother Diabetes Hypertension CVA (cerebral vascular accident) Father Hypertension Surgical History History of History of robot-assisted laparoscopic hysterectomy Hx of hemorrhoidectomy H/O adenoidectomy History of tonsillectomy H/O dilation and curettage History of cholecystectomy Social History household members: family housing: house current occupational status: employed pets and animals: Yes Smoking Status: Current every day smoker tobacco type: cigarettes second hand exposure: No alcohol intake: never substance use type: marijuana seatbelt use: always do you feel safe at home: Yes additional social history: - Igor QUAN ROS ED Constitutional Constitutional ED: Denies chills, fever(s) or weight loss Eyes Eyes: Denies change in vision or diplopia ENT ENT ED: Denies ear pain, rhinorrhea or sore throat Cardiovascular Cardiovascular: Denies chest pain, orthopnea, palpitations or racing heartbeat
--- NOTE | 2025-01-09 10:42 | EX.ED.DYSGE1 ---
HPI History of Present Illness Chief Complaint: Abscess Informant: patient and spouse/S.O. Narrative Narrative: 34-year-old female presenting to the emergency room with a painful red area on the right inner thigh. Patient states has been present for the past couple days and worsening. No reported fevers. She was recently treated with clindamycin for a developing abscess in the mons pubis region. No reported fever. No drainage from the area as noted by patient. PFSH [facility] Medical History Rectal pain Wears contact lenses Depression Anxiety Back pain Vertigo Leg cramps Right knee pain Left knee pain Substance abuse Wears glasses Marijuana use Smoker Uterine fibroid Thyroid nodule Obesity (BMI 30-39.9) Polysubstance (excluding opioids) dependence Migraine Home Medications ?Medication ?Instructions ?Recorded ?Last Taken ?Type pregabalin 150 mg capsule (Lyrica) 150 mg PO TID 06/18/21 09/16/24 06:30 History zolpidem 10 mg tablet (Ambien) 10 mg PO QHS PRN insomnia 08/27/24 Unknown History diazepam 5 mg tablet (Valium) 5 mg PO BID PRN muscle spasm #14 10/07/24 Unknown Rx tabs hydrocortisone 2.5 % topical cream 1 applic [place] TID PRN pain 3 weeks 10/07/24 Unknown Rx with perineal applicator #30 grams (Anusol-HC) clindamycin HCl 300 mg capsule 300 mg PO Q6H 5 days #20 CAPSULES 11/29/24 Unknown Rx (Cleocin HCl) hydrocodone-acetaminophen 5-325mg 1 tab PO Q4H PRN PRN Pain 2 days 11/29/24 Unknown Rx 5mg-325mg #7 TABLETS duloxetine 40 mg capsule,delayed 40 mg PO DAILY 01/09/25 Unknown History release hydrocodone-acetaminophen 5-325mg 1 tab PO Q6H PRN pain 2 days #8 01/09/25 Unknown Rx 5mg-325mg tabs sulfamethoxazole 800 1 tab PO BID #20 TABLETS 01/09/25 Unknown Rx mg-trimethoprim 160 mg tablet terbinafine HCl 250 mg tablet 250 mg PO DAILY 01/09/25 Unknown History Allergy/AdvReac Type Severity Reaction Status Date / Time tramadol Allergy Itching Verified 01/09/25 10:03 Family History Mother Diabetes Hypertension CVA (cerebral vascular accident) Father Hypertension Surgical History History of History of robot-assisted laparoscopic hysterectomy Hx of hemorrhoidectomy H/O adenoidectomy History of tonsillectomy H/O dilation and curettage History of cholecystectomy Social History household members: family housing: house current occupational status: employed pets and animals: Yes Smoking Status: Current every day smoker tobacco type: cigarettes second hand exposure: No alcohol intake: never substance use type: marijuana seatbelt use: always do you feel safe at home: Yes additional social history: - Igor GLASS ROS ED Constitutional Constitutional ED: Denies chills, fever(s) or weight loss Eyes Eyes: Denies change in vision or diplopia ENT ENT ED: Denies ear pain, rhinorrhea or sore throat Cardiovascular Cardiovascular: Denies chest pain, orthopnea, palpitations or racing heartbeat Respiratory/Chest Respiratory/Chest: Denies cough, dyspnea or orthopnea Gastrointestinal Gastrointestinal: Denies abdominal pain, diarrhea, nausea or vomiting Genitourinary Genitourinary ED: Denies dysuria, hematuria or urinary frequency Musculoskeletal Musculoskeletal: Denies arthralgias or myalgias Integumentary Reports abscess and rash Neurologic Neurologic: Denies headache(s) or weakness Psychiatric Psychiatric: Denies anxiety, depression, suicidal ideation or suicidal thoughts Endocrine Endocrinology: Denies polydipsia, polyphagia or polyuria Allergic/Immunologic Allergic/Immunologic ED: Denies mouth swelling, tongue swelling or urticaria EXAM Physical Exam Const Vital Signs: 01/09/25 10:03 Temperature 97.8 F Temperature Source Oral Pulse Rate 97 Respiratory Rate 18 Blood Pressure 119/59 L Blood Pressure Mean 79 Pulse Ox 98 Oxygen Delivery Method Room Air Positive well nourished and well developed General Appearance ED: well developed and NAD HEENT Reports normocephalic, head/scalp atraumatic and moist mucous membranes Eyes PERRL and EOMs intact bilaterally Neck no lymphadenopathy, supple and no JVD Resp normal respiratory effort and clear to auscultation bilaterally Cardio regular rate, regular rhythm and no murmurs GI normal to inspection, nondistended, normoactive bowel sounds and non-tender Palpation: soft Back/Spine no CVA tenderness and normal ROM Extremity normal to inspection General Extremety ED: Negative for edema General Extremity: Negative for edema Neuro oriented x3 and CN's II-XII intact bilaterally Sensorium / Orientation: alert Motor Exam: strength 5/5 throughout Psych mental status grossly normal Mood & Affect: Negative for depressed or tearful Skin Skin Narrative: Right medial proximal thigh demonstrates a skin striae that appears mildly swollen and erythematous of about 1 to 1.5 cm round. There is no fluctuance. There is no induration. There is no lymphangitic streaking. Under ultrasound visualization there is not an organized fluid collection that is amendable to drainage. General Skin Exam: elasticity normal; Negative for jaundice MDM MDM MDM Narrative Medical decision making narrative: Differential diagnosis includes abscess cellulitis folliculitis carbuncle foruncle sebaceous cyst Based on the physical exam and the ultrasound I believe this is a developing abscess but is not amendable to incision and drainage at this time. Patient will be started on Bactrim and warm compresses. I can write for some pain medication. Patient was advised that this may organize into the well-defined drainable abscess in which point she would need to return for incision and drainage. She is to wear loosefitting clothing to keep the area cool and avoid moisture buildup. History & Record Review Discussion w/independent historian: Patient and Significant other Additional record(s) reviewed:: Prior ED visit Discharge Plan Triage Chief Complaint: Abscess Other Complaint: Cellulitis ED Provider: Kwesi Delatorre Dx/Rx/DC Orders Clinical Impression: Cutaneous abscess of extremity Instructions: ED Abscess Antibiotic Treatment Only Prescriptions: New hydrocodone-acetaminophen 5-325 mg tablet 1 tab PO Q6H PRN (Reason: pain) 2 Days Qty: 8 0RF sulfamethoxazole-trimethoprim 800-160 mg tablet 1 tab PO BID Qty: 20 0RF No Action zolpidem [Ambien] 10 mg tablet 10 mg PO QHS PRN (Reason: insomnia) hydrocortisone [Anusol-HC] 2.5 % cream with perineal applicator 1 applic NV TID PRN (Reason: pain) 21 Days Qty: 30 1RF diazepam [Valium] 5 mg tablet 5 mg PO BID PRN (Reason: muscle spasm) Qty: 14 0RF pregabalin [Lyrica] 150 mg Capsule 150 mg PO TID hydrocodone-acetaminophen 5-325 mg tablet 1 tab PO Q4H PRN PRN (Reason: Pain) 2 Days Qty: 7 0RF clindamycin HCl [Cleocin HCl] 300 mg capsule 300 mg PO Q6H 5 Days Qty: 20 0RF terbinafine HCl 250 mg tablet 250 mg PO DAILY duloxetine 40 mg capsule,delayed release(DR/EC) 40 mg PO DAILY Primary Care Provider: Darcy Maria Referrals: Darcy Maria MD [Primary Care Provider] - As Needed Activity Restrictions/Additional Instructions: The infection may resolve with antibiotics and warm compresses. It may organized into a drainable abscess in which point you would need to return to emergency for drainage. I would recommend wearing loosefitting clothing. Heating pad or warm wet washcloth to the area 3-4 times per day and 20-minute sessions. Print Language: Korean Disposition Disposition: Home, Self Care
== END 2025-01-09 11:12 | disposition home or self-care (01) ==
PROVIDERS: Emergency Provider Emergency Medicine; PCP Family Medicine; Visit Provider Emergency Medicine
DX: L03.115 Cellulitis of right lower limb (principal); F41.9 Anxiety disorder, unspecified; F32.A Depression, unspecified; Z79.899 Other long term (current) drug therapy; F17.210 Nicotine dependence, cigarettes, uncomplicated
CPT/HCPCS: 99282

== ENCOUNTER → 2025-01-11 | Outpatient (CLI) | payer MEDICAID, SELFPAY ==
[2025-01-11 12:50] LABS: Follicle Stimulating Hormone 3.2 mIU/mL; Luteinizing Hormone 18.8 mIU/mL
[2025-01-11 12:52] LABS: ALB/GLOB Ratio 1.2 RATIO (0.9-2.4); AST(SGOT) 23 U/L (<=31); Alanine Aminotransfer ALT/SGPT 39 U/L (<=34); Alkaline Phosphatase 100 U/L (35-104); BUN 10 mg/dL (4-19); Carbon Dioxide 22.6 mmol/L (21.0-32.0); Chloride 103 mmol/L (98-108); Creatinine, Serum 0.75 mg/dL (0.70-1.20); EST Glomerular Filtration Rate 105 (>60); Globulin 3.3 g/dL (2.2-4.2); Glucose 93 mg/dL (70-99); Potassium 4.3 mmol/L (3.3-5.1); Protein, Total 7.3 g/dL (5.9-8.4); Sodium Level 136 mmol/L (133-145); Total Bilirubin < 0.15 mg/dL (0.00-1.30)
[2025-01-11 12:53] LABS: Anion Gap 11 (5-15)
[2025-01-14 15:08] LABS: Estrogen, Total, Serum 298 pg/mL (.)
== END | disposition home or self-care (01) ==
LOC: MTLAB 09:17
PROVIDERS: PCP Family Medicine; Referring Provider Family Medicine; Visit Provider Family Medicine
DX: R68.82 Decreased libido (principal); B35.1 Tinea unguium
CPT/HCPCS: 36415; 80053; 82672; 83001; 83002; 84144

== ENCOUNTER 2025-01-13 17:37 | Emergency (ER) | payer MEDICAID, SELFPAY ==
[2025-01-13 17:38] VITALS: BP 158/98; PULSE 111; RESP 20; TEMP 36.2; O2SAT 97
--- NOTE | 2025-01-13 19:23 | ED.VIS.LOWEX ---
HPI History of Present Illness HPI Narrative: 34-year-old female no Cee[facility] past medical history. Caught her right great toenail underneath the table and partially avulsed the nail itself. No other complaints. This occurred around 2 hours ago. Chief Complaint: Lower Extremity Injury Informant: patient Occured/Mechanism Mechanism/Context: Yes injury and Yes blunt trauma Onset/Context/Timing Onset: Today and Hours Context: Sudden Onset Timing: Continuous Quality of Pain: Sharp Current Severity: Moderate Maximum Severity: Moderate Narrative Narrative: 34-year-old female partial avulsion right great toenail. Prior similar symptoms: No Recent Illness/Hospitalization: No PFSH PFSH Medical History Rectal pain Wears contact lenses Depression Anxiety Back pain Vertigo Leg cramps Right knee pain Left knee pain Substance abuse Wears glasses Marijuana use Smoker Uterine fibroid Thyroid nodule Obesity (BMI 30-39.9) Polysubstance (excluding opioids) dependence Migraine Home Medications ?Medication ?Instructions ?Recorded ?Last Taken ?Type pregabalin 150 mg capsule (Lyrica) 150 mg PO TID 06/18/21 09/16/24 06:30 History zolpidem 10 mg tablet (Ambien) 10 mg PO QHS PRN insomnia 08/27/24 Unknown History diazepam 5 mg tablet (Valium) 5 mg PO BID PRN muscle spasm #14 10/07/24 Unknown Rx tabs hydrocortisone 2.5 % topical cream 1 applic [place] TID PRN pain 3 weeks 10/07/24 Unknown Rx with perineal applicator #30 grams (Anusol-HC) clindamycin HCl 300 mg capsule 300 mg PO Q6H 5 days #20 CAPSULES 11/29/24 Unknown Rx (Cleocin HCl) hydrocodone-acetaminophen 5-325mg 1 tab PO Q4H PRN PRN Pain 2 days 11/29/24 Unknown Rx 5mg-325mg #7 TABLETS duloxetine 40 mg capsule,delayed 40 mg PO DAILY 01/09/25 Unknown History release hydrocodone-acetaminophen 5-325mg 1 tab PO Q6H PRN pain 2 days #8 01/09/25 Unknown Rx 5mg-325mg tabs sulfamethoxazole 800 1 tab PO BID #20 TABLETS 01/09/25 Unknown Rx mg-trimethoprim 160 mg tablet terbinafine HCl 250 mg tablet 250 mg PO DAILY 01/09/25 Unknown History hydrocodone-acetaminophen 5-325mg 1 tab PO Q6H PRN pain 3 days #7 01/13/25 Unknown Rx 5mg-325mg tabs Allergy/AdvReac Type Severity Reaction Status Date / Time tramadol Allergy Itching Verified 01/13/25 17:38 Family History Mother Diabetes Hypertension CVA (cerebral vascular accident) Father Hypertension Surgical History History of History of robot-assisted laparoscopic hysterectomy Hx of hemorrhoidectomy H/O adenoidectomy History of tonsillectomy H/O dilation and curettage History of cholecystectomy Social History household members: family housing: house current occupational status: employed pets and animals: Yes Smoking Status: Current every day smoker tobacco type: cigarettes second hand exposure: No alcohol intake: never substance use type: marijuana seatbelt use: always do you feel safe at home: Yes additional social history: - Igor GLASS ROS ED ROS Narrative Denies recent illness. Constitutional Constitutional ED: Denies fever(s) Eyes Eyes: Denies blurry vision ENT ENT ED: Denies ear pain Cardiovascular Cardiovascular: Denies chest pain Respiratory/Chest Respiratory/Chest: Denies cough Gastrointestinal Gastrointestinal: Denies abdominal pain Genitourinary Genitourinary ED: Denies dysuria Musculoskeletal Musculoskeletal: Denies arthralgias Integumentary Denies abscess Neurologic Neurologic: Denies headache(s) Psychiatric Psychiatric: Denies anxiety Endocrine Endocrinology: Denies polydipsia Hematologic/Lymphatic Hematologic/Lymphatic: Denies easy bleeding, easy bruising or lymphadenopathy Allergic/Immunologic Allergic/Immunologic ED: Denies mouth swelling, tongue swelling or urticaria EXAM Physical Exam Narrative Exam Narrative: 34-year-old female no acute distress vital signs stable afebrile. H EENT exam pupils round react light. Lungs clear heart tachycardic 110 no murmur. Chest wall ribs nontender. Abdomen soft nontender. Moving all 4 extremities. Neurovascular intact. Right great toenail is partially avulsed. There is a fungal nail infection. This will need to be removed the nail itself. Foots neurovascular intact. No soft tissue infection. Const Vital Signs: 01/13/25 17:38 01/13/25 21:37 Temperature 97.2 F L Temperature Source Temporal Pulse Rate 111 H 100 Respiratory Rate 20 H 24 H Blood Pressure 158/98 H 155/102 H Blood Pressure Mean 118 119 Pulse Ox 97 99 Oxygen Delivery Method Room Air Room Air Positive well nourished and well developed; Negative for cachectic, contractures or unkempt General Appearance ED: well developed; Negative for unkempt, cachectic or contractures Nutritional Appearance: Negative for cachectic HEENT Reports moist mucous membranes normocephalic and atraumatic Eyes PERRL Neck full ROM and supple Chest Wall inspection of chest normal and palpation of chest normal Resp normal respiratory effort, no retractions and clear to auscultation bilaterally Auscultation: Negative for rales, rhonchi, wheezes or diminished lung sounds Cardio regular rhythm, S1 normal heart sound, S2 normal heart sound and no murmurs; Negative for regular rate Rate: tachycardic GI non-tender, non-distended and no masses Auscultation: normoactive bowel sounds Palpation: soft; Negative for tender, guarding or rebound tenderness present Back/Spine no CVA tenderness General Back: Negative for CVA tenderness Cervical Spine: Negative for cervical spine tenderness Thoracic Spine / Upper Back: Negative for thoracic spinal tenderness Lumbar Spine / Lower Back: Negative for lumbar spinal tenderness Extremity normal to inspection and full ROM Extremity Narrative: Except right great toenail fungal infection. Partially avulsed. Neuro oriented x3, CN's II-XII intact bilaterally, moves all extremities and no sensory deficits noted Sensorium / Orientation: alert, oriented to person, oriented to place and oriented to time; Negative for orientation impaired or confused Motor Exam: strength 5/5 throughout Psych mental status grossly normal Appearance: Negative for unkempt Mood & Affect: anxious Skin no wounds Lesions: no lesions Rashes: no rashes MDM MDM MDM Narrative Medical decision making narrative: 34-year-old female right great toenail partially avulsed. Needed digital block and the nail removed. Patient is comfortable with the plan. Digital block was performed. I was able to remove the nail. Patient tolerated well. Cleaned and dressed discharged home with instructions. Podiatry follow-up as needed. History & Record Review Discussion w/independent historian: Patient Procedures Other Procedures Procedure(s): Patient had a partially avulsed right great toenail. Toe was cleaned. Digital block was performed with lidocaine. I removed the part of the nail was partially avulsed. Then undermined the nail and was able to take it off. Area was cleaned she will be discharged to home. She tolerated well. Discharge Plan Triage Chief Complaint: Lower Extremity Injury ED Provider: Yon Rowan Dx/Rx/DC Orders Clinical Impression: Avulsion of toenail of right foot Prescriptions: New hydrocodone-acetaminophen 5-325 mg tablet 1 tab PO Q6H PRN (Reason: pain) 3 Days Qty: 7 0RF No Action zolpidem [Ambien] 10 mg tablet 10 mg PO QHS PRN (Reason: insomnia) hydrocortisone [Anusol-HC] 2.5 % cream with perineal applicator 1 applic [place] TID PRN (Reason: pain) 21 Days Qty: 30 1RF diazepam [Valium] 5 mg tablet 5 mg PO BID PRN (Reason: muscle spasm) Qty: 14 0RF pregabalin [Lyrica] 150 mg Capsule 150 mg PO TID hydrocodone-acetaminophen 5-325 mg tablet 1 tab PO Q4H PRN PRN (Reason: Pain) 2 Days Qty: 7 0RF clindamycin HCl [Cleocin HCl] 300 mg capsule 300 mg PO Q6H 5 Days Qty: 20 0RF terbinafine HCl 250 mg tablet 250 mg PO DAILY duloxetine 40 mg capsule,delayed release(DR/EC) 40 mg PO DAILY hydrocodone-acetaminophen 5-325 mg tablet 1 tab PO Q6H PRN (Reason: pain) 2 Days Qty: 8 0RF sulfamethoxazole-trimethoprim 800-160 mg tablet 1 tab PO BID Qty: 20 0RF Primary Care Provider: Darcy Maria Referrals: Darcy Maria MD [Primary Care Provider] - Carlos Pineda DPM [Med Staff - Active Staff] - As Needed Activity Restrictions/Additional Instructions: Clean daily with soap and water peroxide and water. Dry thoroughly. Ice. Motrin and Tylenol for pain. For more severe pain use the [place]. Follow-up with the licensed nuclear control room operator as needed. If the nail grows back out it will take weeks to months. There is a chance it may not grow back out. Print Language: Singaporean Disposition Disposition: Home, Self Care
[2025-01-13 21:37] VITALS: BP 155/102; PULSE 100; RESP 24; O2SAT 99
[2025-01-13] MEDS: Lidocaine 1% (20 ml mdv) 20 ML Vial 10 ML INFILT (21:41)
[2025-01-13] MEDS: HYDROcodone Bitartrate/Apap 5/325 Tablet PO (21:41)
[2025-01-13 23:02] VITALS: BP 156/87; PULSE 67; RESP 18; O2SAT 97
== END 2025-01-13 23:04 | disposition home or self-care (01) ==
PROVIDERS: Emergency Provider Emergency Medicine; PCP Family Medicine; Visit Provider Emergency Medicine
DX: S91.201A Unspecified open wound of right great toe with damage to nail, initial encounter (principal); X58.XXXA Exposure to other specified factors, initial encounter; F17.210 Nicotine dependence, cigarettes, uncomplicated
CPT/HCPCS: 11730; 11750; 11760; 99284

== ENCOUNTER 2025-02-05 08:56 | Emergency (ER) | payer MEDICAID, SELFPAY ==
[2025-02-05 08:58] VITALS: BP 145/93; PULSE 124; RESP 18; TEMP 36.6; O2SAT 98; BMI 46.7
--- NOTE | 2025-02-05 09:03 | EDS_ITS ---
HPI History of Present Illness HPI Narrative: Patient presents with left index finger pain that began last night. Patient states she cracked her knuckle and felt severe pain. Patient states her pain is mainly over the PIP joint. Patient states her pain is worse with any movement. Patient describes her pain as aching. Patient states nothing seems to help with it. Patient denies any paresthesias or weakness. Patient denies any discoloration of her finger. Chief Complaint: Upper Extremity Injury Onset/Context/Timing Onset: Yesterday Context: Sudden Onset Timing: Continuous Quality of Pain: Aching Location: Left index finger Worsened by: Movement Relieved by: Nothing Associated Symptoms Associated Symptoms: Negative for Parasthesia, Weakness or Loss of Funtion [facility] Medical History (Updated 02/05/25 @ 10:[address] Altaf Campbell, DO) Arthritis Rectal pain Wears contact lenses Depression Anxiety Back pain Vertigo Leg cramps Right knee pain Left knee pain Substance abuse Wears glasses Marijuana use Smoker Uterine fibroid Thyroid nodule Obesity (BMI 30-39.9) Polysubstance (excluding opioids) dependence Migraine Home Medications ?Medication ?Instructions ?Recorded ?Last Taken ?Type pregabalin 150 mg capsule (Lyrica) 150 mg PO TID 06/1802/04/25 History cyclobenzaprine 10 mg tablet 10 mg PO BID PRN muscle p ain 02/05/25 02/04/25 History duloxetine 60 mg capsule,delayed 60 mg PO DAILY 02/04/25 History release hydrocodone-acetaminophen 5-325mg 1 tab PO Q6H PRN PRN Pain 3 days 02/05/25 Unknown Rx 5mg-325mg #10 TABLETS Allergy/AdvReac Type Severity Reaction Status Date / Time tramadol Allergy Itching Verified 02/05/25 08:57 Family History Mother Diabetes Hypertension CVA (cerebral vascular accident) Father Hypertension Surgical History History of History of robot-assisted laparoscopic hysterectomy Hx of hemorrhoidectomy H/O adenoidectomy History of tonsillectomy H/O dilation and curettage History of cholecystectomy Social History household members: family housing: house current occupational status: employed pets and animals: Yes Smoking Status: Current every day smoker tobacco type: cigarettes second hand exposure: No alcohol intake: never substance use type: marijuana seatbelt use: always do you feel safe at home: Yes additional social history: - Igor GLASS ROS ED Constitutional Constitutional ED: Denies chills or fever(s) Eyes Eyes: Denies blurry vision or change in vision ENT ENT ED: Denies rhinorrhea or sore throat Cardiovascular Cardiovascular: Denies chest pain or palpitations Respiratory/Chest Respiratory/Chest: Denies cough or dyspnea Gastrointestinal Gastrointestinal: Denies nausea or vomiting Genitourinary Genitourinary ED: Denies dysuria or hematuria Musculoskeletal Musculoskeletal: Denies back pain or neck pain Integumentary Denies abscess or rash Neurologic Neurologic: Denies headache(s) or weakness Allergic/Immunologic Allergic/Immunologic ED: Denies mouth swelling or urticaria EXAM Physical Exam Const Vital Signs: 02/05/25 08:58 Temperature 97.8 F Temperature Source Temporal Pulse Rate 124 H Respiratory Rate 18 Blood Pressure 145/93 H Blood Pressure Mean 110 Pulse Ox 98 Oxygen Delivery Method Room Air Positive well nourished and well developed General Appearance ED: well developed and NAD HEENT Reports moist mucous membranes Neck full ROM and supple Extremity Extremity Narrative: There is tenderness with mild edema over the PIP joint of the left index finger. There is no deformity noted. There is no bony crepitance or step-off. There is no ecchymosis noted. Range of motion was limited in all motions of the left index finger secondary to pain. Sensation was intact to light touch to all digits. Capillary refill was less than 2 seconds in all digits. Radial pulses are equal bilaterally. Neuro oriented x3, CN's II-XII intact bilaterally, moves all extremities, no focal motor deficits and no sensory deficits noted Sensorium / Orientation: alert Motor Exam: strength 5/5 throughout Psych mental status grossly normal MDM MDM MDM Narrative Medical decision making narrative: Differential diagnosis includes fracture, sprain, and contusion. X-ray of the left index finger will be obtained to assess for fracture. Radiography Diagnostic Testing: X-rays of the left index finger were obtained. There are 3 views. On my independent interpretation, there is a small avulsion fracture off the base of the middle phalanx on the volar aspect. There is minimal displacement. Radiologist also interpreted the x-ray and agrees. Treatment and Re-Evaluation Narrative: Patient was advised of her findings. Patient was instructed to ice and elevate her left index finger. Patient was given prescription for short course of [place]. Patient was placed on AlumaFoam splint. Patient was instructed to follow-up with her primary care physician in 5 to 7 days. Patient understood and was agreeable with the plan. All questions were answered. Discharge Plan Triage Chief Complaint: Upper Extremity Injury ED Provider: Altaf Campbell Dx/Rx/DC Orders Clinical Impression: Closed avulsion fracture of middle phalanx of finger Instructions: ED Fracture, Finger, Closed Prescriptions: New hydrocodone-acetaminophen 5-325 mg tablet 1 tab PO Q6H PRN PRN (Reason: Pain) 3 Days Qty: 10 0RF No Action pregabalin [Lyrica] 150 mg Capsule 150 mg PO TID cyclobenzaprine 10 mg tablet 10 mg PO BID PRN (Reason: muscle pain) duloxetine 60 mg capsule,delayed release(DR/EC) 60 mg PO DAILY Patient Comments: PT TAKES AT BEDTIME Primary Care Provider: Darcy Maria Referrals: Darcy Maria MD [Primary Care Provider] - 5-7 Days Print Language: Vincentian Disposition Disposition: Home, Self Care
--- NOTE | 2025-02-05 09:25 | RAD_ITS ---
PROCEDURE: FINGER(S) MIN 2 VIEWS 02/05/2025 REASON FOR EXAM: INJURY/PAIN TECHNIQUE: FINGER(S) MIN 2 VIEWS COMPARISON: None FINDINGS: Bones: Tiny avulsion fracture at the base of the middle phalanx of the index finger. Joints: Normal alignment. Soft tissues: Soft tissue swelling. Other: RAD/Finger(s) Min 2 Views IMPRESSION: Nondisplaced avulsion type fracture at the base of the middle phalanx of the in dex finger with overlying soft tissue swelling. Reading Location: [id number]
[2025-02-05] MEDS: HYDROcodone Bitartrate/Apap 5/325 Tablet PO (10:27)
== END 2025-02-05 10:33 | disposition home or self-care (01) ==
PROVIDERS: Emergency Provider Emergency Medicine; PCP Family Medicine; Visit Provider Emergency Medicine
DX: S62.621A Displaced fracture of middle phalanx of left index finger, initial encounter for closed fracture (principal); X58.XXXA Exposure to other specified factors, initial encounter; F32.A Depression, unspecified; F41.9 Anxiety disorder, unspecified; M19.90 Unspecified osteoarthritis, unspecified site; G43.909 Migraine, unspecified, not intractable, without status migrainosus; F17.210 Nicotine dependence, cigarettes, uncomplicated; Z79.899 Other long term (current) drug therapy
CPT/HCPCS: 73140; 99283

== ENCOUNTER 2025-02-10 11:21 | Emergency (ER) | payer MEDICAID, SELFPAY ==
[2025-02-10 11:22] VITALS: BP 144/119; PULSE 112; RESP 16; TEMP 36.6; O2SAT 100; BMI 46.3
[2025-02-10] MEDS: Lidocaine 1% (20 ml mdv) 20 ML Vial INFILT (12:26)
--- NOTE | 2025-02-10 12:39 | EX.ED.DYSGE1 ---
HPI History of Present Illness Chief Complaint: Wound Informant: patient Onset/Context/Timing Onset: Days (5) Context: Gradual Onset Timing: Continuous Quality: Sharp Location: Left breast skin fold Worsened by: Nothing Relieved by: Nothing Narrative Narrative: Patient presents with an abscess to her left breast skin fold that has been getting worse over the last 5 days. Patient describes her pain as sharp. Patient states it is mainly over the left upper abdomen/left breast. Patient states nothing makes it worse and nothing makes it better. Patient denies any discharge or drainage. Patient denies any fevers or chills. Patient states she has a history of abscesses that need to be drained. [facility] Medical History Arthritis Rectal pain Wears contact lenses Depression Anxiety Back pain Vertigo Leg cramps Right knee pain Left knee pain Substance abuse Wears glasses Marijuana use Smoker Uterine fibroid Thyroid nodule Obesity (BMI 30-39.9) Polysubstance (excluding opioids) dependence Migraine Home Medications ?Medication ?Instructions ?Recorded ?Last Taken ?Type pregabalin 150 mg capsule (Lyrica) 150 mg PO TID 06/18/21 02/04/25 History cyclobenzaprine 10 mg tablet 10 mg PO BID PRN muscle pain 02/05/25 02/04/25 History duloxetine 60 mg capsule,delayed 60 mg PO DAILY 02/05/25 02/04/25 History release cephalexin 500 mg capsule 500 mg PO Q6 #40 CAPSULES 02/10/25 Unknown Rx hydrocodone-acetaminophen 5-325mg 1 tab PO Q6H PRN PRN Pain 3 days 02/10/25 Unknown Rx 5mg-325mg #10 TABLETS Allergy/AdvReac Type Severity Reaction Status Date / Time tramadol Allergy Itching Verified 02/10/25 11:21 Family History Mother Diabetes Hypertension CVA (cerebral vascular accident) Father Hypertension Surgical History History of History of robot-assisted laparoscopic hysterectomy Hx of hemorrhoidectomy H/O adenoidectomy History of tonsillectomy H/O dilation and curettage History of cholecystectomy Social History household members: family housing: house current occupational status: employed pets and animals: Yes Smoking Status: Current every day smoker tobacco type: cigarettes second hand exposure: No alcohol intake: never substance use type: marijuana seatbelt use: always do you feel safe at home: Yes additional social history: - [employer] [employer] [facility] ED Constitutional Constitutional ED: Denies chills or fever(s) Eyes Eyes: Denies blurry vision or change in vision ENT ENT ED: Denies rhinorrhea or sore throat Cardiovascular Cardiovascular: Denies chest pain or palpitations Respiratory/Chest Respiratory/Chest: Denies cough or dyspnea Gastrointestinal Gastrointestinal: Reports nausea; Denies vomiting Genitourinary Genitourinary ED: Denies dysuria or hematuria Musculoskeletal Musculoskeletal: Denies back pain or neck pain Integumentary Reports abscess; Denies rash Neurologic Neurologic: Denies headache(s) or weakness Allergic/Immunologic Allergic/Immunologic ED: Denies mouth swelling or urticaria EXAM Physical Exam Const Vital Signs: 02/10/25 11:22 Temperature 98 F Temperature Source Temporal Pulse Rate 112 H Respiratory Rate 16 Blood Pressure 144/119 H Blood Pressure Mean 127 Pulse Ox 100 Oxygen Delivery Method Room Air Positive well nourished and well developed Constitutional Narrative: BMI is 46.3. General Appearance ED: well developed and NAD HEENT Reports moist mucous membranes Neck supple and no JVD Resp normal respiratory effort and clear to auscultation bilaterally Cardio regular rate and regular rhythm GI non-tender and non-distended Palpation: soft Neuro oriented x3, CN's II-XII intact bilaterally and no sensory deficits noted Sensorium / Orientation: alert Motor Exam: strength 5/5 throughout Psych mental status grossly normal Skin Skin Narrative: There is erythema, induration, and tenderness over the left breast skin fold. There is mild fluctuance. There is no active discharge or drainage. There is no warmth noted. There is no surrounding cellulitis. MDM MDM MDM Narrative Medical decision making narrative: Patient was advised of the need for incision and drainage. Patient was given the opportunity ask questions. Patient had no further questions. Informed consent was obtained. The left breast skin fold was cleaned with chlorhexidine. The area was anesthetized 1% lidocaine locally. A linear incision was made. There is a moderate amount of purulent drainage expressed. Hemostats were used to break up loculations. The wound was irrigated with 60 cc of normal saline. The wound was left open. Patient was instructed to keep the wound clean and dry. Patient was instructed to follow-up with her primary care physician in 5 to 7 days. Patient was given prescriptions for Keflex and [place]. Patient was instructed to return if worse in any way. Patient understood and was agreeable with the plan. All questions were answered. Discharge Plan Triage Chief Complaint: Wound ED Provider: Altaf Campbell Dx/Rx/DC Orders Clinical Impression: Abscess, Tobacco use Instructions: ED Abscess Incision And Drainage Prescriptions: New cephalexin 500 mg capsule 500 mg PO Q6 Qty: 40 0RF Continued hydrocodone-acetaminophen 5-325 mg tablet 1 tab PO Q6H PRN PRN (Reason: Pain) 3 Days Qty: 10 0RF No Action pregabalin [Lyrica] 150 mg Capsule 150 mg PO TID cyclobenzaprine 10 mg tablet 10 mg PO BID PRN (Reason: muscle pain) duloxetine 60 mg capsule,delayed release(DR/EC) 60 mg PO DAILY Patient Comments: PT TAKES AT BEDTIME Primary Care Provider: Darcy Maria Referrals: Darcy Maria MD [Primary Care Provider] - 5-7 Days Print Language: Dominican Disposition Disposition: Home, Self Care
[2025-02-10 14:23] VITALS: BP 143/93; PULSE 88; RESP 14; TEMP 36.9; O2SAT 95
== END 2025-02-10 14:28 | disposition home or self-care (01) ==
PROVIDERS: Emergency Provider Emergency Medicine; PCP Family Medicine; Referring Provider Emergency Medicine; Visit Provider Emergency Medicine
DX: N61.1 Abscess of the breast and nipple (principal); Z68.42 Body mass index [BMI] 45.0-49.9, adult; F17.210 Nicotine dependence, cigarettes, uncomplicated; E66.9 Obesity, unspecified; F32.A Depression, unspecified; F41.9 Anxiety disorder, unspecified; Z79.899 Other long term (current) drug therapy
CPT/HCPCS: 10060; 99283

== ENCOUNTER 2025-05-30 10:39 | Emergency (ER) | payer SELFPAY ==
[2025-05-30] VITALS (13 sets, daily range): BP systolic 114–135; BP diastolic 74–110; PULSE 67–115; RESP 11–20; TEMP 36.4–36.6; O2SAT 93–100; BMI 47.2
[2025-05-30 12:21] LABS: Hematocrit 43.8 % (37-47); Hemoglobin 15.0 g/dL (12.0-15.0); Immature Granulocytes Count 0.100 X10^3/uL (0.0-0.0); Mean Corp Hgb Conc 34.2 g/dL (32-36); Mean Corpuscular Volume 85.9 fL (81-99); Mean Platelet Vol. 10.2 fl (6.2-12.0); NRBC Flagged by Analyzer 0 % (0-5); Platelet Count 427 K/mm3 (150-450); RBC Distribution Width CV 14.4 % (11.6-14.6); RBC Distribution Width SD 45.3 fl (35.1-43.9); Red Blood Count 5.10 M/mm3 (4.2-5.4); White Blood Count 12.6 K/mm3 (4.4-11.0)
[2025-05-30 12:25] LABS: Prothrombin Time (Protime)PT. 12.3 SECONDS (11.7-14.9)
[2025-05-30 12:26] LABS: Partial Thromboplast Time 24.3 Seconds (24.1-36.2)
[2025-05-30 12:35] LABS: D-Dimer Quantitative (DVT/PE) 0.41 FEU/ug/m (0.27-0.49)
[2025-05-30 12:55] LABS: Anion Gap 14 (5-15); BUN 8 mg/dL (4-19); BUN/Creat Ratio 11.8 RATIO (10-20); Calcium,Total 9.1 mg/dL (7.6-11.0); Carbon Dioxide 19.5 mmol/L (21.0-32.0); Chloride 104 mmol/L (98-108); Estimated Creatinine Clearance 146.24 ml/min (50-250); Glucose 101 mg/dL (70-99); Magnesium 2.2 mg/dL (1.5-2.2); Potassium 3.7 mmol/L (3.3-5.1)
[2025-05-30 12:56] LABS: Pro- Brain NATRIURETIC PEPTIDE < 36 pg/mL (<=450); Troponin T High Sensitivity < 6 ng/L (<=14)
[2025-05-30 14:47] LABS: Troponin T High Sens 2 HR < 6 ng/L (<=14)
== END 2025-05-30 15:33 | disposition home or self-care (01) ==
PROVIDERS: Emergency Provider Surgery; PCP Internal Medicine; Visit Provider Surgery
DX: R07.89 Other chest pain (principal); F41.1 Generalized anxiety disorder; R06.02 Shortness of breath; E04.1 Nontoxic single thyroid nodule; F32.A Depression, unspecified; M79.7 Fibromyalgia; F17.200 Nicotine dependence, unspecified, uncomplicated; Z90.49 Acquired absence of other specified parts of digestive tract; Z79.899 Other long term (current) drug therapy
CPT/HCPCS: 71046; 80048; 83735; 83880; 84443; 84484; 85025; 85379; 85610; 85730; 93005; 96374; 96375; 96376; 99284; A4216; J2405